=== PATIENT | male | born 1960 | race Caucasian/White ===

== ENCOUNTER 2016-06-02 13:48 | Observation (INO) | payer MEDICAID ==
--- NOTE | 2016-06-02 14:02 | CPEKG ---
Heart Rate: 68 RR Interval: 882 P-R Interval: 152 QRSD Interval: 96 QT Interval: 440 QTC Interval: 469 P Calhan: 33 QRS Calhan: 37 T Wave Calhan: 16 EKG Severity - NORMAL ECG - EKG Impression: SINUS RHYTHM Electronically Signed By: Nanda Quiñonez 02-Jun-2016 15:49:43
[2016-06-02] MEDS ORDERED: methylPREDNISolone SOD SUCC 125 MG/2 ML VIAL IVP ONE (14:13)
[2016-06-02] MEDS ORDERED: MAGNESIUM SULF 2 GM/WATER 50 ML IV ONE (14:13)
[2016-06-02] MEDS ORDERED: NS 500 ML IV ONE (14:13)
[2016-06-02] MEDS ORDERED: IPRATROPIUM/ALBUTEROL 3 ML DEYVIAL IH ONE (14:13)
[2016-06-02] MEDS ORDERED: ONDANSETRON 4 MG/2 ML VIAL IVP ONE ×2 (14:14→14:58)
[2016-06-02] MEDS ORDERED: FAMOTIDINE 20 MG/NACL 50 ML IV ONE (14:15)
[2016-06-02 14:20] LABS: % IMMATURE GRANULYOCYTES 0.9 % (0.0-1.1); ABSOLUTE IMMATURE GRANULOCYTES 0.11 10^3/uL (0.00-0.10); ADD DIFF? NO; ADD MORPH? NO; ADD SCAN? NO; ATYPICAL LYMPHOCYTE FLAG 0 (0-99); FRAGMENT RBC FLAG 0 (0-99); HEMATOCRIT 44.6 % (40.0-51.0); HEMOGLOBIN 15.7 g/dL (13.7-17.5); LEFT SHIFT FLG 0 (0-99); LIPEMIA HEMOLYSIS FLAG 90 (0-99); MEAN CELL HEMOGLOBIN 31.2 pg (27.9-34.1); MEAN CELL HEMOGLOBIN CONCENTR. 35.2 g/dL (32.4-36.7); MEAN CELL VOLUME 88.5 fL (81.5-99.8); MEAN PLATELET VOLUME 9.9 fL (8.7-11.7); PLATELET CLUMPS FLAG 0 (0-99); PLATELET COUNT 269 10^3/uL (150-400); RED BLOOD CELL COUNT 5.04 10^6/uL (4.40-6.38)
--- NOTE | 2016-06-02 14:22 | EDPHY ---
H & P Time Seen by Provider: 06/02/16 14:00 HPI/ROS: HPI Cough, congestion, body aches, vomiting, diarrhea. 56-year-old male by private vehicle with his friend. This patient complains of a productive cough, shortness of breath, intermittent fever, nasal congestion, body aches, nausea and vomiting, and watery diarrhea for the last 2 days. He reports that his cough is productive of a green sputum. He has a history of COPD. He is on oxygen at 2 L by nasal cannula 24-7. ROS: Constitutional: As above. Eyes: No discharge. No changes in vision. ENT: No sore throat. As above. Respiratory: As above. Cardiac: No chest pain, no palpitations. Gastrointestinal: No abdominal pain, no vomiting, no diarrhea. Genitourinary: No hematuria. No dysuria or increased frequency with urination. Musculoskeletal: No back pain. No neck pain. No myalgias or arthralgias. Skin: No rashes. Neurological: No headache. No focal weakness or altered sensation. Past medical history: Chronic pain, on large doses of OxyContin and oxycodone chronically, multiple musculoskeletal injuries, PE, asthma/COPD, type 2 diabetes , lung surgery. 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 Here with his friend. Physical Exam: General Appearance: Alert, he appears uncomfortable. This patient is responding to questions appropriately and in full sentences. This patient appears well-hydrated and well-nourished. Eyes: Pupils equal and round no pallor or injection. No lid edema, erythema or injection. ENT, Mouth: Mucous membranes are moist. The pharyngeal tissues are unremarkable. No edema or swelling. No asymmetry suggestive of abscess. No erythema or exudates. Respiratory: There are no retractions, shallow lung sounds bilaterally. No significant wheezing, no rhonchi. No tachypnea. Cardiovascular: Regular rate and rhythm. No murmur. Gastrointestinal: Abdomen is soft and nontender, no masses, bowel sounds normal. No focal tenderness at McBurney's point. No Sanchez sign. Neurological: Motor sensory function is grossly intact. Cranial nerves are normal. Gait is normal. Skin: Warm and dry, no rashes. Musculoskeletal: Neck is supple and nontender. Extremities are symmetrical. All joints range without pain or impingement. Psychiatric: No agitation. No depression. Database: EKG: EKG time is 2:00 p.m.; EKG shows a narrow complex normal sinus rhythm with a ventricular rate of 68. The MS, QRS, QT intervals are within normal limits. There are no ST-T wave changes indicative of ischemic or injury pattern. No evidence of right heart strain. Interpreted by me. Imaging: Chest x-ray PA and lateral; the cardiac mediastinal silhouette is unremarkable. No evidence of infiltrate or pneumothorax. Diffuse airway disease/ bronchitis. No other acute cardiopulmonary disease process noted. Interpreted by me. Procedures: Emergency department course: IV placed. He was placed on a monitoring coordinator. His vital signs have been reviewed. An EKG was performed. He was initially given 4 mg of IV Zofran, 20 mg of IV Pepcid. He will receive an albuterol/Atrovent nebulizer, 6 mL back-to- back, 2 g of IV magnesium and 125 mg of Solu-Medrol. Flu swab obtained. 2:50 p.m., patient re-evaluated. He is resting comfortably and taking his nebulizer at this time. Pulse oximetry is 96-97% on the nebulizer. No tachypnea. He is afebrile. He appears much more relaxed and comfortable. 3:30 p.m., patient re-evaluated. Vital signs have been reviewed. phototypesetting equipment monitor shows a narrow complex sinus rhythm ventricular rate of 75. Blood pressure 197/116 currently after duo nebs. Pulse oximetry on 2 L of nasal cannula oxygen 96%. He stated that he felt better but still overall did not feel well. He is requesting pain medication. As noted above he has a history of chronic narcotic pain medication dependence. He was given 0.5 mg of IV hydromorphone. He does not feel comfortable going home at this time. I will admit him to the hospitalist service on observation status. 3:35 p.m., spoke with hospitalist, Dr. Nina Bullock. This patient's case was discussed in detail with her. She has accepted the patient for admission. Patient admitted in stable condition. Differential Diagnosis: The differential diagnosis on this patient includes but is not limited to influenza, pneumonia, CHF, chronic pain exacerbation, COPD exacerbation. PE, CHF, DC unlikely. This represents a partial list of diagnoses considered. These considerations are based on history, physical exam, past history, reassessment and diagnostic testing. Smoking Status: Never smoked Constitutional: Initial Vital Signs Temperature (C) 36.3 C 06/02/16 13:52 Heart Rate 76 06/02/16 13:52 Respiratory Rate 22 H 06/02/16 13:52 Blood Pressure 152/102 H 06/02/16 13:52 O2 Sat (%) 98 06/02/16 13:52 O2 Delivery Mode Nasal Cannula O2 (L/minute) 2 Allergies/Adverse Reactions: ibuprofen Allergy (Verified 07/11/15 10:01) Home Medications: Medication Instructions Recorded Advair 250/50 (RX) 07/11/15 Albuterol Sulfate 07/11/15 Allopurinol 07/11/15 Aspirin 07/11/15 Losartan Potassium 07/11/15 Ondansetron Odt [Zofran Odt] 4 mg PO Q4PRN PRN #10 tab 07/11/15 Oxycodone HCl 07/11/15 Zofran 07/11/15 Medical Decision Making - Data Points Laboratory Results: Laboratory Results 06/02/16 14:06 06/02/16 14:06 06/02/16 06/02/16 14:20 14:06 WBC 12.74 H 10^3/uL (3.80-9.50) RBC 5.04 10^6/uL (4.40-6.38) Hgb 15.7 g/dL (13.7-17.5) Hct 44.6 % (40.0-51.0) MCV 88.5 fL (81.5-99.8) MCH 31.2 pg (27.9-34.1) MCHC 35.2 g/dL (32.4-36.7) RDW 15.0 % (11.5-15.2) Plt Count 269 10^3/uL (150-400) MPV 9.9 fL (8.7-11.7) Neut % (Auto) 74.2 % (39.3-74.2) Lymph % (Auto) 16.5 % (15.0-45.0) [place] % (Auto) 7.1 % (4.5-13.0) Eos % (Auto) 0.8 % (0.6-7.6) Baso % (Auto) 0.5 % (0.3-1.7) Nucleat RBC Rel Count 0.0 % (0.0-0.2) Absolute Neuts (auto) 9.46 H 10^3/uL (1.70-6.50) Absolute Lymphs (auto) 2.10 10^3/uL (1.00-3.00) Absolute Monos (auto) 0.90 H 10^3/uL (0.30-0.80) Absolute Eos (auto) 0.10 10^3/uL (0.03-0.40) Absolute Basos (auto) 0.07 10^3/uL (0.02-0.10) Absolute Nucleated RBC 0.00 10^3/uL (0-0.01) Immature Gran % 0.9 % (0.0-1.1) Immature Gran # 0.11 H 10^3/uL (0.00-0.10) Sodium 141 mEq/L (134-144) Potassium 4.2 mEq/L (3.5-5.2) Chloride 106 mEq/L (97-110) Carbon Dioxide 21 L mEq/l (22-31) Anion Gap 14 mEq/L (8-16) BUN 12 mg/dL (7-23) Creatinine 0.7 mg/dL (0.7-1.3) Estimated GFR > 60 Glucose 180 H mg/dL (70-100) Calcium 9.4 mg/dL (8.5-10.4) Influenza Typ A,B (DFA) NEGATIVE FOR FLU (NEGATIVE) Medications Given: Discontinued Medications Albuterol/Ipratropium (Duoneb) 6 ml IH EDNOW ONE Stop: 06/02/16 14:14 Last Admin: 06/02/16 14:32 Dose: 6 ml Sodium Chloride (Ns) 500 mls @ 0 mls/hr IV ONCE ONE PRN Reason: As Directed Stop: 06/02/16 14:14 Last Admin: 06/02/16 14:33 Dose: 500 mls Magnesium Sulfate (Magnesium Sulf 2 Gm (Premix)) 50 mls @ 50 mls/hr IV EDNOW ONE Stop: 06/02/16 15:12 Last Admin: 06/02/16 14:32 Dose: 50 mls Famotidine/Sodium Chloride (Pepcid 20 Mg (Premix)) 50 mls @ 200 mls/hr IV EDNOW ONE Stop: 06/02/16 14:29 Last Admin: 06/02/16 14:50 Dose: 50 mls Methylprednisolone Sodium Succinate (Solu-Medrol) 125 mg IVP EDNOW ONE Stop: 06/02/16 14:14 Last Admin: 06/02/16 14:33 Dose: 125 mg Ondansetron HCl (Zofran) 4 mg IVP EDNOW ONE Stop: 06/02/16 14:15 Last Admin: 06/02/16 14:33 Dose: 4 mg Ondansetron HCl (Zofran) 4 mg IVP EDNOW ONE Stop: 06/02/16 14:59 Last Admin: 06/02/16 15:04 Dose: 4 mg Departure - Departure Disposition: [facility] Inpatient Acute Clinical Impression: Vomiting, Diarrhea, Upper respiratory infection, Dyspnea, COPD exacerbation Referrals: Andrea Last MD [Primary Care Provider] - As per Instructions
[2016-06-02 14:49] LABS: ANION GAP 14 mEq/L (8-16); CALCIUM 9.4 mg/dL (8.5-10.4); CARBON DIOXIDE 21 mEq/l (22-31); CHLORIDE 106 mEq/L (97-110); CREATININE 0.7 mg/dL (0.7-1.3); GLOMERULAR FILTRATION RATE > 60; GLUCOSE 180 mg/dL (70-100); POTASSIUM 4.2 mEq/L (3.5-5.2); SODIUM 141 mEq/L (134-144)
[2016-06-02] MEDS ORDERED: HYDROmorphONE/DILAUDID 1 MG/ML SYR IVP ONE ×2 (15:33→17:35)
--- NOTE | 2016-06-02 16:07 | DX ---
Chest, AP Upright and Lateral Views, 3 Views Total - June 02, 2016, at 2:50 p.m. Clinical History: 56-year-old male with nausea, vomiting, and dyspnea. Comparison Studies: Chest, dated February 20, 2016 and September 30, 2011. Findings: Telemetry monitoring lead lines and oxygen tubing are in place. The cardiac and mediastina l silhouette are normal in size. There is no focal infiltrate, pleural effusion, peripheral interstit ial edema, or pneumothorax. There is some linear scarring at the right lung base and also in the late ral right upper chest, which are unchanged. The osseous structures are age-appropriate with some dege nerative features. The patient's arms obscure the anterior retrosternal space on the lateral view. Th ere is minimal left apical pleural thickening. There is an old healed left second anterior rib fractu re site. Impression: No acute abnormality, or substantial change from 2011.
[2016-06-02 16:18] VITALS: TEMP 97.5
[2016-06-02] MEDS ORDERED: ONDANSETRON DISINTEGRATING 4 MG TAB PO PRN (17:26)
[2016-06-02] MEDS ORDERED: ONDANSETRON 4 MG/2 ML VIAL IVP PRN (17:26)
[2016-06-02] MEDS ORDERED: PROMETHAZINE HCL 25 MG/ML VIAL IVP PRN (17:26)
[2016-06-02] MEDS ORDERED: ACETAMINOPHEN 325 MG TAB PO PRN (17:26)
[2016-06-02] MEDS ORDERED: IPRATROPIUM/ALBUTEROL 3 ML DEYVIAL IH PRN (17:35)
[2016-06-02] MEDS ORDERED: ALBUTEROL 60 PUFFS/8 GM MDI IH PRN (17:35)
--- NOTE | 2016-06-02 17:43 | PDEACUHP ---
History and Physical - Chief Complaint N/V/D, upper respiratory symptoms - History of Present Illness 56 yo male with h/o DM, COPD and chronic pain with chronic continuous opioid dependence presents to ED from his PCP office for 2-3 days of upper respiratory symptoms, in addition to N/V/D. He was to have his chronic pain medications refilled today and reports not being able to tolerate his meds over past 1-2 days due to N/V. He c/o abdominal cramping, chills and reports diarrhea 5-6 times per day. He denies recent travel. No camping. No atbx exposure. In the ED, there was concern for upper respiratory symptoms, and he does endorse some nasal congestion and recent productive cough. However, he has no respiratory distress and his symptoms seem to be focused on GI complaints. He was given 0.5 mg IV dilaudid, Zofran, Pepcid, IV magnesium, and IV solumedrol in the ED. He is admitted to the [facility] for further management. History Information - Allergies/Home Medication List Allergies/Adverse Reactions: ibuprofen Allergy (Verified 07/11/15 10:01) Home Medications: Albuterol [Proventil Inhaler HFA (*)] 1 - 2 puffs IH DAILY PRN 07/11/15 [Last Taken Unknown] Allopurinol [Allopurinol 300 MG (RX)] 300 mg PO BID 07/11/15 [Last Taken ] Atorvastatin Calcium [Lipitor 40 mg (*)] 40 mg PO DAILY 07/11/15 [Last Taken ] FLUTICASONE/SALMETEROL [ADVAIR HFA 230-21 MCG INHALER] 2 puffs IH BID 07/11/15 [ Last Taken Unknown] Losartan Potassium [Cozaar 50 mg (*)] 50 mg PO DAILY18 07/11/15 [Last Taken ] Tiotropium Inhaler [Spiriva Handihaler] 18 mcg IH DAILY18 07/11/15 [Last Taken 06/01/16] oxyCODONE IR [Oxycodone Ir (*)] 20 mg PO Q4-6PRN PRN 07/11/15 [Last Taken 2 Days Ago] Acetaminophen/ASA/Caffeine [Excedrin Tablet (*)] 1 each PO DAILY PRN 06/02/16 [ Last Taken Unknown] Ipratropium/Albuterol [Duoneb (*)] 3 ml IH Q6 PRN 06/02/16 [Last Taken 06/02/16] Oxycodone HCl [Oxycontin] 40 mg PO BID 06/02/16 [Last Taken 06/02/16] Psyllium Husk (with Sugar) [Metamucil Packet] 1 each PO DAILY 06/02/16 [Last Taken Unknown] metFORMIN HCL [Glucophage 500 mg (*)] 500 mg PO BIDMEAL 06/02/16 [Last Taken ] I have personally reviewed and updated: family history, medical history, social history, surgical history - Past Medical History asthma, COPD, diabetes type 2, pulmonary embolism - Surgical History Reports: no pertinent surgical hx - Family History Positive for: non-pertinent - Social History Smoking Status: Never smoked Alcohol Use: None Drug Use: None (Lives with his in [place]. 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.) Review of Systems ROS: 10pt was reviewed & negative except for what was stated in HPI & below Physical Exam Temp Pulse Resp BP Pulse Ox 36.4 C 80 16 150/83 H 97 06/02/16 16:16 06/02/16 16:16 06/02/16 16:16 06/02/16 16:16 06/02/16 16:16 O2 (L/minute) 2 Constitutional: no apparent distress Eyes: PERRL Ears, Nose, Mouth, Throat: moist mucous membranes Cardiovascular: regular rate and rhythym, no murmur, rub, or gallop Respiratory: no respiratory distress, clear to auscultation Gastrointestinal: normoactive bowel sounds, soft, non-tender abdomen Skin: warm Neurologic: AAOx3 Psychiatric: interacting appropriately Lab Data & Imaging Review 06/02/16 14:06 06/02/16 14:06 WBC 12.74 10^3/uL (3.80-9.50) H 06/02/16 14:06 RBC 5.04 10^6/uL (4.40-6.38) 06/02/16 14:06 Hgb 15.7 g/dL (13.7-17.5) 06/02/16 14:06 Hct 44.6 % (40.0-51.0) 06/02/16 14:06 MCV 88.5 fL (81.5-99.8) 06/02/16 14:06 MCH 31.2 pg (27.9-34.1) 06/02/16 14:06 MCHC 35.2 g/dL (32.4-36.7) 06/02/16 14:06 RDW 15.0 % (11.5-15.2) 06/02/16 14:06 Plt Count 269 10^3/uL (150-400) 06/02/16 14:06 MPV 9.9 fL (8.7-11.7) 06/02/16 14:06 Neut % (Auto) 74.2 % (39.3-74.2) 06/02/16 14:06 Lymph % (Auto) 16.5 % (15.0-45.0) 06/02/16 14:06 [place] % (Auto) 7.1 % (4.5-13.0) 06/02/16 14:06 Eos % (Auto) 0.8 % (0.6-7.6) 06/02/16 14:06 Baso % (Auto) 0.5 % (0.3-1.7) 06/02/16 14:06 Nucleat RBC Rel Count 0.0 % (0.0-0.2) 06/02/16 14:06 Absolute Neuts (auto) 9.46 10^3/uL (1.70-6.50) H 06/02/16 14:06 Absolute Lymphs (auto) 2.10 10^3/uL (1.00-3.00) 06/02/16 14:06 Absolute Monos (auto) 0.90 10^3/uL (0.30-0.80) H 06/02/16 14:06 Absolute Eos (auto) 0.10 10^3/uL (0.03-0.40) 06/02/16 14:06 Absolute Basos (auto) 0.07 10^3/uL (0.02-0.10) 06/02/16 14:06 Absolute Nucleated RBC 0.00 10^3/uL (0-0.01) 06/02/16 14:06 Immature Gran % 0.9 % (0.0-1.1) 06/02/16 14:06 Immature Gran # 0.11 10^3/uL (0.00-0.10) H 06/02/16 14:06 Sodium 141 mEq/L (134-144) 06/02/16 14:06 Potassium 4.2 mEq/L (3.5-5.2) 06/02/16 14:06 Chloride 106 mEq/L (97-110) 06/02/16 14:06 Carbon Dioxide 21 mEq/l (22-31) L 06/02/16 14:06 Anion Gap 14 mEq/L (8-16) 06/02/16 14:06 BUN 12 mg/dL (7-23) 06/02/16 14:06 Creatinine 0.7 mg/dL (0.7-1.3) 06/02/16 14:06 Estimated GFR > 60 06/02/16 14:06 Glucose 180 mg/dL (70-100) H 06/02/16 14:06 Calcium 9.4 mg/dL (8.5-10.4) 06/02/16 14:06 Influenza Typ A,B (DFA) NEGATIVE FOR FLU (NEGATIVE) 06/02/16 14:20 Assessment & Plan Assessment: N/V/D - Query viral gastroenteritis vs opioid withdrawal. He was due to Rx refill today, but was so ill at his PCP office, was sent to ED. Though I'm suspicious for opioid withdrawal, will check stool culture, giardia and cryptosporidium since he uses well water and he reports concern about contamination. Supportive care with anti-emetics, IVF's. Will give IV dilaudid now, followed by his outpatient doses of Oxycontin and Oxycodone. Chronic pain with continuous opioid dependence - Resume outpt meds as above. COPD without acute exacerbation - CXR shows chronic airway disease. His symptoms may have cleared after IV solumedrol given in the ED, but I appreciate no wheezing or significant respiratory symptoms on my exam. Thus, I'll defer further steroids at this time. Continue home nebs and inhalers. DM type 2 - hold metformin for now, dose adjusted insulin as needed. Full code Dispo - obs
[2016-06-02] MEDS ORDERED: D50W 25 GM/50 ML SYR IVP PRN (17:50)
[2016-06-02 17:53] LABS: ALBUMIN 3.9 g/dL (3.5-5.0); BILIRUBIN,TOTAL 1.1 mg/dL (0.1-1.4); BILIRUBIN-CONJUGATED 0.2 mg/dL (0.0-0.5); BILIRUBIN-UNCONJUGATED 0.9 mg/dL (0.0-1.1)
[2016-06-02] MEDS ORDERED: LOSARTAN POTASSIUM 50 MG TAB PO SCH (18:00)
[2016-06-02] MEDS ORDERED: TIOTROPIUM INHALER 18 MCG/DOSE 5 DOSE/MDI IH SCH (18:00)
[2016-06-02] MEDS ORDERED: NS 1,000 ML IV SCH (18:00)
[2016-06-02] MEDS: INSULIN LISPRO 100 UNIT/ML SC SCH (18:31)
[2016-06-02] MEDS: oxyCODONE IR 5 MG TAB PO PRN (20:32)
[2016-06-02] MEDS: Fluticasone/Salmeterol [Advair Hfa 230-21 Mcg Inhaler] 2 PUFFS IH SCH (21:05)
[2016-06-03 05:53] LABS: % IMMATURE GRANULYOCYTES 0.5 % (0.0-1.1); ABSOLUTE IMMATURE GRANULOCYTES 0.08 10^3/uL (0.00-0.10); ADD DIFF? NO; ADD MORPH? NO; ADD SCAN? NO; ATYPICAL LYMPHOCYTE FLAG 0 (0-99); FRAGMENT RBC FLAG 0 (0-99); HEMATOCRIT 44.2 % (40.0-51.0); HEMOGLOBIN 14.7 g/dL (13.7-17.5); LEFT SHIFT FLG 0 (0-99); LIPEMIA HEMOLYSIS FLAG 80 (0-99); MEAN CELL HEMOGLOBIN 29.9 pg (27.9-34.1); MEAN CELL HEMOGLOBIN CONCENTR. 33.3 g/dL (32.4-36.7); MEAN PLATELET VOLUME 10.1 fL (8.7-11.7); PLATELET CLUMPS FLAG 10 (0-99); PLATELET COUNT 275 10^3/uL (150-400); RED BLOOD CELL COUNT 4.91 10^6/uL (4.40-6.38); RED CELL DISTRIBUTION WIDTH 15.4 % (11.5-15.2)
[2016-06-03 05:56] LABS: COLOR YELLOW; LEUKOCYTE ESTERASE,URINE NEGATIVE (NEGATIVE); NITRITE,URINE NEGATIVE (NEGATIVE)
[2016-06-03 06:05] LABS: ANION GAP 12 mEq/L (8-16); CALCIUM 8.4 mg/dL (8.5-10.4); CARBON DIOXIDE 20 mEq/l (22-31); CHLORIDE 106 mEq/L (97-110); CREATININE 0.7 mg/dL (0.7-1.3); GLOMERULAR FILTRATION RATE > 60; GLUCOSE 265 mg/dL (70-100); POTASSIUM 4.3 mEq/L (3.5-5.2); SODIUM 138 mEq/L (134-144)
[2016-06-03 06:12] LABS: MUCUS 1+ /lpf (NONE-1+)
[2016-06-03 07:51] VITALS: BP 104/65
[2016-06-03] MEDS: oxyCODONE IR 5 MG TAB PO PRN ×2 (08:08→11:38)
[2016-06-03] MEDS ORDERED: MAGNESIUM HYDROXIDE 30 ML UDCUP PO PRN (08:24)
[2016-06-03] MEDS ORDERED: ALLOPURINOL 300 MG TAB PO SCH (09:00)
[2016-06-03] MEDS ORDERED: ATORVASTATIN CALCIUM 40 MG TAB PO SCH (09:00)
[2016-06-03] MEDS: INSULIN LISPRO 100 UNIT/ML SC SCH (09:53)
[2016-06-03] MEDS: Fluticasone/Salmeterol [Advair Hfa 230-21 Mcg Inhaler] 2 PUFFS IH SCH (09:53)
[2016-06-03] MEDS ORDERED: metFORMIN HCL 500 MG TAB PO SCH (10:00)
[2016-06-03 10:27] VITALS: PULSE 88; RESP 18; O2SAT 96
--- NOTE | 2016-06-03 11:16 | GDS ---
[f rep st] DISCHARGE SUMMARY DIAGNOSES: 1. Chronic obstructive pulmonary disease exacerbation. 2. Suspected viral gastroenteritis versus narcotic withdrawal with nausea, vomiting, diarrhea. 3. Leukocytosis. 4. Acute on chronic respiratory failure on supplemental oxygen. 5. Chronic pain on continuous narcotics. HOSPITAL COURSE: A 56-year-old man admitted with viral gastroenteritis symptoms. He had been unable to tolerate his narcotics and there may have been a component of narcotic withdrawal as well. Sympt oms have markedly improved overnight. He is eating a full meal and feels much better. He also had worsening of his chronic reactive airways disease, which is likely COPD. He received Nicole u-Medrol in the emergency department. He is on chronic oxygen. He has sufficient inhalers and nebul izers at home which he uses. I will give him a short burst of prednisone given his significant impro vement with the dose of Solu-Medrol. I will give him low-dose prednisone as he has diabetes and he h as been hyperglycemic. I have given him 4 days of prednisone 20 mg. In terms of his chronic narcotic dependence, he will fill his prescriptions with Dr. Mendez. She has l eft scripts for him at her office. He has a slightly worsening leukocytosis which I suspect is due to the steroids received in the ED as he feels symptomatically significantly improved. /[id number]/MODL
== END 2016-06-03 12:10 | disposition home or self-care (01) ==
LOC: F1N 16:10
PROVIDERS: ADMIT Hospitalist; ATTEND Hospitalist
DX: J44.1 Chronic obstructive pulmonary disease with (acute) exacerbation (principal); A08.4 Viral intestinal infection, unspecified; E11.9 Type 2 diabetes mellitus without complications; Z99.81 Dependence on supplemental oxygen; Z87.891 Personal history of nicotine dependence; G89.29 Other chronic pain; F11.20 Opioid dependence, uncomplicated; Z86.711 Personal history of pulmonary embolism
CPT/HCPCS: 71020; 93005; 96365; 96375; 96376; 99285; G0378; J1170; J2405; J2550

== ENCOUNTER 2016-06-23 00:46 | Observation (INO) | payer MEDICAID ==
[2016-06-23] MEDS ORDERED: NS 1,000 ML IV ONE ×2 (00:53→01:32)
[2016-06-23] MEDS ORDERED: PANTOPRAZOLE SODIUM 40 MG in NS 100 ML IV ONE (00:54)
--- NOTE | 2016-06-23 00:59 | EDPHY ---
H & P HPI/ROS: HPI CHIEF COMPLAINT: Hematemesis HISTORY OF PRESENT ILLNESS: This patient very pleasant 56-year-old male, who presents emergency room by EMS for hematemesis. Patient tells me he ate barbecue and pizza around 730 tonight, around 930 tonight he started having sudden onset nausea and vomiting. He had multiple episodes of vomiting. He tells me that he filled up at least 2 cups of bright red blood. He tells me It was not dark blood, there were no blood clots. He states that is bright red blood. He denies having any black tarry stools he does tell me he has some lower abdominal cramping. Denies chest pain or shortness of breath. He has no history of ulcers or esophageal varices or liver disease. He is not on any anticoagulation. Past Medical History: Diabetes, COPD on 2 L nasal cannula around the clock, hypertension, chronic musculoskeletal pain, pulmonary embolisms Past Surgical History: Denies recent significant surgical history Social History: Denies use of drugs alcohol tobacco products, lives in [facility] at home, Family History:Noncontributory ROS REVIEW OF SYSTEMS: A comprehensive 10 point review of systems is otherwise negative aside from elements mentioned in the history of present illness. Exam Constitutional triage nursing summary reviewed, vital signs reviewed, awake/ alert. Eyes normal conjunctivae and sclera, EOMI, PERRLA. HENT normal inspection, atraumatic, moist mucus membranes, no epistaxis, neck supple/ no meningismus, no raccoon eyes. Respiratory clear to auscultation bilaterally, normal breath sounds, no respiratory distress, no wheezing. Cardiovascular rate normal, regular rhythm, no murmur, no edema, distal pulses normal. Gastrointestinal mild tender palpation lower abdomen, no rebound, no guarding , normal bowel sounds, no distension, no pulsatile mass. Genitourinary no CVA tenderness. Musculoskeletal no midline vertebral tenderness, full range of motion, no calf swelling, no tenderness of extremities, no meningismus, good pulses, neurovascularly intact. Skin pink, warm, & dry, no rash, skin atraumatic. Neurologic awake, alert and oriented x 3, AAOx3, moves all 4 extremities equally, motor intact, sensory intact, CN II-XII intact, normal cerebellar, normal vision, normal speech. Psychiatric normal mood/affect. Heme/Lymph/Immune no lymphadenopathy. Differential diagnosis includes but is not limited to and in no particular order : Peptic ulcer disease, Tawnya-Jacobson tear, esophageal varices, gastritis, bowel obstruction, appendicitis, gallbladder disease, diverticulitis, colitis, enteritis, perforated viscus, gastritis, GERD, esophagitis, urinary tract infection, pyelonephritis, kidney stones Medical Decision Making: This patient had an IV established patient be placed on full monitor, obtain blood work patient be typed and screen. Patient be given Protonix Protonix drip. Patient had a CT scan of his abdomen pelvis with IV contrast rule out significant intra-abdominal inflammation pathology including perforated ulcer, duodenitis, colitis, diverticulitis. Re-evaluation: CT scan of the abdominal pain with IV contrast The results of the study are shows nothing acute specifically no ulcer or perforated ulcer, no evidence of duodenitis nothing spleen hematemesis The study was read by Dr. Gross I viewed the images myself on the PACS system. 0246: Re-evaluation at this time is resting comfortably no acute distress. He has not had any vomiting here specifically no hematemesis. His CT scan has been reviewed shows no acute inflammatory process. Blood work is stable as H&H stable. Due to the complaint of 2 large cups of bright red blood I feel it is reasonable to admit this patient observe him overnight and possibly scope him. He is not on any anticoagulation is INR normal. He is hemodynamically stable as H&H were stable. No evidence of active bleeding at this time. Spoke with the hospitalist service Dr. Marshall who agrees to admit this patient. At this time the patient's abdomen is soft nontender no guarding or peritoneal signs. Source: Patient, EMS - Medical/Surgical History Hx Asthma: Yes Hx Chronic Respiratory Disease: Yes Hx Diabetes: Yes Hx Cardiac Disease: No Hx Renal Disease: No Hx Cirrhosis: No Hx Alcoholism: No Hx HIV/AIDS: No Hx Splenectomy or Spleen Trauma: No Other PMH: Chronic pain, PE x5, asthma/COPD, DM II, LUNG SURGERY, kidneystones, hossein shoulder tears, r knee injuries, lower back pain, backfractures - Social History Smoking Status: Never smoked Constitutional: Initial Vital Signs O2 Sat (%) 93 06/23/16 00:53 O2 Delivery Mode Room Air O2 (L/minute) 2 Allergies/Adverse Reactions: ibuprofen Allergy (Verified 06/23/16 01:00) Home Medications: Medication Instructions Recorded Albuterol [Proventil Inhaler HFA 1 - 2 puffs IH DAILY PRN 07/11/15 (*)] Allopurinol [Allopurinol 300 MG 300 mg PO BID 07/11/15 (RX)] Atorvastatin Calcium [Lipitor 40 40 mg PO DAILY 07/11/15 mg (*)] Losartan Potassium [Cozaar 50 mg 50 mg PO DAILY18 07/11/15 (*)] oxyCODONE IR [Oxycodone Ir (*)] 20 mg PO Q4-6PRN PRN 07/11/15 Ipratropium/Albuterol [Duoneb (*)] 3 ml IH Q6 PRN 06/02/16 Oxycodone HCl [Oxycontin] 40 mg PO BID 06/02/16 Psyllium Husk (with Sugar) 1 each PO DAILY 06/02/16 [Metamucil Packet] metFORMIN HCL [Glucophage 500 mg 500 mg PO BIDMEAL 06/02/16 (*)] Medical Decision Making - Data Points Laboratory Results: Laboratory Results 06/23/16 00:54 06/23/16 00:54 06/23/16 06/23/16 06/23/16 01:40 01:15 00:54 WBC 9.01 10^3/uL (3.80-9.50) RBC 4.58 10^6/uL (4.40-6.38) Hgb 14.3 g/dL (13.7-17.5) Hct 41.3 % (40.0-51.0) MCV 90.2 fL (81.5-99.8) MCH 31.2 pg (27.9-34.1) MCHC 34.6 g/dL (32.4-36.7) RDW 13.6 % (11.5-15.2) Plt Count 270 10^3/uL (150-400) MPV 10.0 fL (8.7-11.7) Neut % (Auto) 57.5 % (39.3-74.2) Lymph % (Auto) 31.0 % (15.0-45.0) [place] % (Auto) 8.0 % (4.5-13.0) Eos % (Auto) 2.3 % (0.6-7.6) Baso % (Auto) 0.4 % (0.3-1.7) Nucleat RBC Rel Count 0.0 % (0.0-0.2) Absolute Neuts (auto) 5.18 10^3/uL (1.70-6.50) Absolute Lymphs (auto) 2.79 10^3/uL (1.00-3.00) Absolute Monos (auto) 0.72 10^3/uL (0.30-0.80) Absolute Eos (auto) 0.21 10^3/uL (0.03-0.40) Absolute Basos (auto) 0.04 10^3/uL (0.02-0.10) Absolute Nucleated RBC 0.00 10^3/uL (0-0.01) Immature Gran % 0.8 % (0.0-1.1) Immature Gran # 0.07 10^3/uL (0.00-0.10) PT 12.2 SEC (12.0-15.0) INR 0.91 (0.83-1.16) APTT 24.1 SEC (23.0-38.0) VBG Lactic Acid Sodium 142 mEq/L (134-144) Potassium 4.0 mEq/L (3.5-5.2) Chloride 104 mEq/L (97-110) Carbon Dioxide 22 mEq/l (22-31) Anion Gap 16 mEq/L (8-16) BUN 17 mg/dL (7-23) Creatinine 1.0 mg/dL (0.7-1.3) Estimated GFR > 60 Glucose 220 H mg/dL (70-100) Calcium 9.4 mg/dL (8.5-10.4) Total Bilirubin 0.6 mg/dL (0.1-1.4) Conjugated Bilirubin 0.5 mg/dL (0.0-0.5) Unconjugated Bilirubin 0.1 mg/dL (0.0-1.1) AST 23 IU/L (17-59) ALT 37 IU/L (21-72) Alkaline Phosphatase 90 IU/L (38-126) Total Protein 6.5 g/dL (6.3-8.2) Albumin 3.9 g/dL (3.5-5.0) Lipase 91.0 IU/L (23-300) Urine Color YELLOW Urine Appearance CLEAR Urine pH 6.0 (5.0-7.5) Ur Specific [place] 1.018 (1.002-1.030) Urine Protein NEGATIVE (NEGATIVE) Urine Ketones TRACE H (NEGATIVE) Urine Blood NEGATIVE (NEGATIVE) Urine Nitrate NEGATIVE (NEGATIVE) Urine Bilirubin NEGATIVE (NEGATIVE) Urine Urobilinogen NEGATIVE EU (0.2-1.0) Ur Leukocyte Esterase NEGATIVE (NEGATIVE) Ur Culture Indicated? NOT INDICATED (NI) Urine Glucose NEGATIVE (NEGATIVE) Patient ABO/Rh O POSITIVE Antibody Screen NEGATIVE 06/23/16 00:53 WBC RBC Hgb Hct MCV MCH MCHC RDW Plt Count MPV Neut % (Auto) Lymph % (Auto) [place] % (Auto) Eos % (Auto) Baso % (Auto) Nucleat RBC Rel Count Absolute Neuts (auto) Absolute Lymphs (auto) Absolute Monos (auto) Absolute Eos (auto) Absolute Basos (auto) Absolute Nucleated RBC Immature Gran % Immature Gran # PT INR APTT VBG Lactic Acid 3.5 H mmol/L (0.7-2.1) Sodium Potassium Chloride Carbon Dioxide Anion Gap BUN Creatinine Estimated GFR Glucose Calcium Total Bilirubin Conjugated Bilirubin Unconjugated Bilirubin AST ALT Alkaline Phosphatase Total Protein Albumin Lipase Urine Color Urine Appearance Urine pH Ur Specific [place] Urine Protein Urine Ketones Urine Blood Urine Nitrate Urine Bilirubin Urine Urobilinogen Ur Leukocyte Esterase Ur Culture Indicated? Urine Glucose Patient ABO/Rh Antibody Screen Medications Given: Discontinued Medications Hydromorphone HCl (Dilaudid) 0.5 mg IVP EDNOW ONE Stop: 06/23/16 02:40 Last Admin: 06/23/16 02:40 Dose: 0.5 mg Sodium Chloride (Ns) 1,000 mls @ 0 mls/hr IV ONCE ONE PRN Reason: Wide Open Stop: 06/23/16 00:54 Last Admin: 06/23/16 01:10 Dose: 1,000 mls Pantoprazole Sodium 40 mg/ (Sodium Chloride) 100 mls @ 200 mls/hr IV EDNOW ONE Stop: 06/23/16 01:23 Last Admin: 06/23/16 01:25 Dose: 100 mls Sodium Chloride (Ns) 1,000 mls @ 0 mls/hr IV ONCE ONE PRN Reason: Wide Open Stop: 06/23/16 01:33 Last Admin: 02/06/17 02:15 Dose: 1,000 mls Departure - Departure Disposition: [facility] Inpatient Acute Clinical Impression: Hematemesis Qualifiers: Nausea presence: with nausea Qualifier Code: (K92.0) Hematemesis Condition: Good
[2016-06-23 01:06] LABS: % IMMATURE GRANULYOCYTES 0.8 % (0.0-1.1); ABSOLUTE IMMATURE GRANULOCYTES 0.07 10^3/uL (0.00-0.10); ADD DIFF? NO; ADD MORPH? NO; ADD SCAN? NO; ATYPICAL LYMPHOCYTE FLAG 0 (0-99); FRAGMENT RBC FLAG 0 (0-99); HEMATOCRIT 41.3 % (40.0-51.0); HEMOGLOBIN 14.3 g/dL (13.7-17.5); LEFT SHIFT FLG 0 (0-99); LIPEMIA HEMOLYSIS FLAG 90 (0-99); MEAN CELL HEMOGLOBIN 31.2 pg (27.9-34.1); MEAN CELL HEMOGLOBIN CONCENTR. 34.6 g/dL (32.4-36.7); MEAN CELL VOLUME 90.2 fL (81.5-99.8); PLATELET CLUMPS FLAG 10 (0-99); PLATELET COUNT 270 10^3/uL (150-400); RED BLOOD CELL COUNT 4.58 10^6/uL (4.40-6.38); RED CELL DISTRIBUTION WIDTH 13.6 % (11.5-15.2)
[2016-06-23 01:18] LABS: INR 0.91 (0.83-1.16); PROTIME(PATIENT) 12.2 SEC (12.0-15.0)
[2016-06-23 01:19] LABS: APTT 24.1 SEC (23.0-38.0)
[2016-06-23] MEDS ORDERED: IOPAMIDOL (ISOVUE-300) 100 ML BTL IV ONE (01:40)
[2016-06-23 01:53] LABS: ALANINE AMINOTRANSFERASE 37 IU/L (21-72); ALBUMIN 3.9 g/dL (3.5-5.0); ALKALINE PHOSPHATASE 90 IU/L (38-126); ANION GAP 16 mEq/L (8-16); ASPARTATE AMINOTRANSFERASE 23 IU/L (17-59); BILIRUBIN,TOTAL 0.6 mg/dL (0.1-1.4); BILIRUBIN-CONJUGATED 0.5 mg/dL (0.0-0.5); BILIRUBIN-UNCONJUGATED 0.1 mg/dL (0.0-1.1); CALCIUM 9.4 mg/dL (8.5-10.4); CARBON DIOXIDE 22 mEq/l (22-31); CHLORIDE 104 mEq/L (97-110); GLOMERULAR FILTRATION RATE > 60; GLUCOSE 220 mg/dL (70-100); SODIUM 142 mEq/L (134-144); TOTAL PROTEIN 6.5 g/dL (6.3-8.2)
[2016-06-23 02:04] LABS: COLOR YELLOW; LEUKOCYTE ESTERASE,URINE NEGATIVE (NEGATIVE); NITRITE,URINE NEGATIVE (NEGATIVE)
[2016-06-23] MEDS: PANTOPRAZOLE SODIUM 80 MG in NS 100 ML IV SCH ×3 (02:34→23:09)
[2016-06-23] MEDS ORDERED: HYDROmorphONE/DILAUDID 1 MG/ML SYR IVP ONE (02:39)
[2016-06-23] MEDS ORDERED: ONDANSETRON 4 MG/2 ML VIAL IVP PRN (03:53)
[2016-06-23] MEDS ORDERED: ONDANSETRON DISINTEGRATING 4 MG TAB PO PRN (03:53)
[2016-06-23] MEDS ORDERED: oxyCODONE IR 5 MG TAB PO PRN (03:53)
[2016-06-23] MEDS ORDERED: ALBUTEROL 3 ML DEYVIAL IH PRN (03:53)
[2016-06-23] MEDS ORDERED: ACETAMINOPHEN 325 MG TAB PO PRN (03:53)
--- NOTE | 2016-06-23 04:36 | PDGENHP ---
History and Physical - Chief Complaint vomiting bright red blood - History of Present Illness Patient is a 56/M with COPD, chronic respiratory failure, chronic pain syndrome who presents to the ED complaining of nausea, vomiting and vomiting bright red blood. Patient states he ate dinner this evening without event, then at around 9pm suddenly felt nauseous, started vomiting initially stomach contents, but after a few minutes of vomiting, he reports about 2 cups of bright red blood with clots came out. He also reports feeling generalized crampy abdominal discomfort, but denies any associated dizziness/lightheadedness, chest pain, palpitations, shortness of breath or diarrhea. He has never had a colonoscopy or EGD before. He denies daily alcohol use, but does take Aspirin 325 mg daily. Denies any prior history of bleeding, last BM was on 06/22 and normal in color and consistency. On arrival to the ED, patient was afebrile and hemodynamically stable. Labs, including cbc and BMP were unremarkable. He was started on a PPI and CT abd/ pelvis was obtained, which did not reveal any acute pathology. He was then admitted to the hospitalist service for further management. History Information - Allergies/Home Medication List Allergies/Adverse Reactions: ibuprofen Allergy (Verified 06/23/16 01:00) Home Medications: Albuterol [Proventil Inhaler HFA (*)] 1 - 2 puffs IH DAILY PRN 07/11/15 [Last Taken Unknown] Allopurinol [Allopurinol 300 MG (RX)] 300 mg PO BID 07/11/15 [Last Taken ] Atorvastatin Calcium [Lipitor 40 mg (*)] 40 mg PO DAILY 07/11/15 [Last Taken ] Losartan Potassium [Cozaar 50 mg (*)] 50 mg PO DAILY18 07/11/15 [Last Taken ] oxyCODONE IR [Oxycodone Ir (*)] 20 mg PO Q4-6PRN PRN 07/11/15 [Last Taken 2 Days Ago] Ipratropium/Albuterol [Duoneb (*)] 3 ml IH Q6 PRN 06/02/16 [Last Taken 06/02/16] Oxycodone HCl [Oxycontin] 40 mg PO BID 06/02/16 [Last Taken 06/02/16] Psyllium Husk (with Sugar) [Metamucil Packet] 1 each PO DAILY 06/02/16 [Last Taken Unknown] metFORMIN HCL [Glucophage 500 mg (*)] 500 mg PO BIDMEAL 06/02/16 [Last Taken ] I have personally reviewed and updated: family history, medical history, social history, surgical history - Past Medical History asthma, 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), diabetes type 2, pulmonary embolism (2012, provoked, s/p 6 months of systemic anticoagulation) Additional medical history: multiple skeletal trauma, chronic pain syndrome - Surgical History Reports: no pertinent surgical hx - Family History Positive for: non-pertinent - Social History Smoking Status: Never smoked Alcohol Use: None Drug Use: None Additional social history: Patient is retired, lives his , 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 Review of Systems ROS: 10pt was reviewed & negative except for what was stated in HPI & below Physical Exam Temp Pulse Resp BP Pulse Ox 36.7 C 87 16 130/77 H 94 06/23/16 01:21 06/23/16 02:00 06/23/16 02:00 06/23/16 02:00 06/23/16 02:00 Constitutional: no apparent distress, appears nourished, not in pain Eyes: PERRL, anicteric sclera, EOMI Ears, Nose, Mouth, Throat: moist mucous membranes, hearing normal, ears appear normal, no oral mucosal ulcers Cardiovascular: regular rate and rhythym, no murmur, rub, or gallop, pulses symmetric bilaterally, No JVD, No edema Peripheral Pulses: 2+: dorsalis-pedis (R), dorsalis-pedis (L) Respiratory: no respiratory distress, no rales or rhonchi, clear to auscultation Gastrointestinal: normoactive bowel sounds, no palpable masses, other (soft, mild tenderness in the epigastrum/LUQ), No guarding, No rebound Genitourinary: no bladder fullness, no bladder tenderness Skin: warm, normal color, no rashes or abrasions, no fluctuance, no induration, No mottled Musculoskeletal: full muscle strength, no muscle tenderness, normal joint ROM, no joint effusions Neurologic: AAOx3, sensation intact bilaterally, CN II-XII Intact, No weakness, No numbness Psychiatric: interacting appropriately, not anxious, not encephalopathic, thought process linear Lab Data & Imaging Review 06/23/16 00:54 06/23/16 00:54 WBC 9.01 10^3/uL (3.80-9.50) 06/23/16 00:54 RBC 4.58 10^6/uL (4.40-6.38) 06/23/16 00:54 Hgb 14.3 g/dL (13.7-17.5) 06/23/16 00:54 Hct 41.3 % (40.0-51.0) 06/23/16 00:54 MCV 90.2 fL (81.5-99.8) 06/23/16 00:54 MCH 31.2 pg (27.9-34.1) 06/23/16 00:54 MCHC 34.6 g/dL (32.4-36.7) 06/23/16 00:54 RDW 13.6 % (11.5-15.2) 06/23/16 00:54 Plt Count 270 10^3/uL (150-400) 06/23/16 00:54 MPV 10.0 fL (8.7-11.7) 06/23/16 00:54 Neut % (Auto) 57.5 % (39.3-74.2) 06/23/16 00:54 Lymph % (Auto) 31.0 % (15.0-45.0) 06/23/16 00:54 [place] % (Auto) 8.0 % (4.5-13.0) 06/23/16 00:54 Eos % (Auto) 2.3 % (0.6-7.6) 06/23/16 00:54 Baso % (Auto) 0.4 % (0.3-1.7) 06/23/16 00:54 Nucleat RBC Rel Count 0.0 % (0.0-0.2) 06/23/16 00:54 Absolute Neuts (auto) 5.18 10^3/uL (1.70-6.50) 06/23/16 00:54 Absolute Lymphs (auto) 2.79 10^3/uL (1.00-3.00) 06/23/16 00:54 Absolute Monos (auto) 0.72 10^3/uL (0.30-0.80) 06/23/16 00:54 Absolute Eos (auto) 0.21 10^3/uL (0.03-0.40) 06/23/16 00:54 Absolute Basos (auto) 0.04 10^3/uL (0.02-0.10) 06/23/16 00:54 Absolute Nucleated RBC 0.00 10^3/uL (0-0.01) 06/23/16 00:54 Immature Gran % 0.8 % (0.0-1.1) 06/23/16 00:54 Immature Gran # 0.07 10^3/uL (0.00-0.10) 06/23/16 00:54 PT 12.2 SEC (12.0-15.0) 06/23/16 00:54 INR 0.91 (0.83-1.16) 06/23/16 00:54 APTT 24.1 SEC (23.0-38.0) 06/23/16 00:54 VBG Lactic Acid 1.6 mmol/L (0.7-2.1) D 06/23/16 04:12 Sodium 142 mEq/L (134-144) 06/23/16 00:54 Potassium 4.0 mEq/L (3.5-5.2) 06/23/16 00:54 Chloride 104 mEq/L (97-110) 06/23/16 00:54 Carbon Dioxide 22 mEq/l (22-31) 06/23/16 00:54 Anion Gap 16 mEq/L (8-16) 06/23/16 00:54 BUN 17 mg/dL (7-23) 06/23/16 00:54 Creatinine 1.0 mg/dL (0.7-1.3) 06/23/16 00:54 Estimated GFR > 60 06/23/16 00:54 Glucose 220 mg/dL (70-100) H 06/23/16 00:54 Calcium 9.4 mg/dL (8.5-10.4) 06/23/16 00:54 Total Bilirubin 0.6 mg/dL (0.1-1.4) 06/23/16 00:54 Conjugated Bilirubin 0.5 mg/dL (0.0-0.5) 06/23/16 00:54 Unconjugated Bilirubin 0.1 mg/dL (0.0-1.1) 06/23/16 00:54 AST 23 IU/L (17-59) 06/23/16 00:54 ALT 37 IU/L (21-72) 06/23/16 00:54 Alkaline Phosphatase 90 IU/L (38-126) 06/23/16 00:54 Total Protein 6.5 g/dL (6.3-8.2) 06/23/16 00:54 Albumin 3.9 g/dL (3.5-5.0) 06/23/16 00:54 Lipase 91.0 IU/L (23-300) 06/23/16 00:54 Urine Color YELLOW 06/23/16 01:40 Urine Appearance CLEAR 06/23/16 01:40 Urine pH 6.0 (5.0-7.5) 06/23/16 01:40 Ur Specific [place] 1.018 (1.002-1.030) 06/23/16 01:40 Urine Protein NEGATIVE (NEGATIVE) 06/23/16 01:40 Urine Ketones TRACE (NEGATIVE) H 06/23/16 01:40 Urine Blood NEGATIVE (NEGATIVE) 06/23/16 01:40 Urine Nitrate NEGATIVE (NEGATIVE) 06/23/16 01:40 Urine Bilirubin NEGATIVE (NEGATIVE) 06/23/16 01:40 Urine Urobilinogen NEGATIVE EU (0.2-1.0) 06/23/16 01:40 Ur Leukocyte Esterase NEGATIVE (NEGATIVE) 06/23/16 01:40 Ur Culture Indicated? NOT INDICATED (NI) 06/23/16 01:40 Urine Glucose NEGATIVE (NEGATIVE) 06/23/16 01:40 Patient ABO/Rh O POSITIVE 06/23/16 01:15 Antibody Screen NEGATIVE 06/23/16 01:15 Visualized and Interpreted imaging results: Yes Interpretation: CT abd/pelvis: no acute pathology, chronic pulmonary nodules Assessment & Plan Assessment: Patient is 56/M with COPD, chronic resp failure, chronic pain who presents to the ED after an episode of hematemesis. He is hemodynamically stable, H/H stable , initiated on a PPI. Plan: # acute hematemesis Pt describes about 2 cup-volume of hematemesis, has not had any repeat episodes since arrival to the ED. Last BM was 1 day ago and normal. CT abd/pelvis does not reveal any acute pathology. He remains hemodynamically stable, will monitor H/H q6, consult GI for EGD and continue IV pantoprazole drip. Trigger possible daily full dose aspirin use, will hold this. If bleeding becomes significant, pt HD unstable, will transfuse platelets. # lactic acidosis Likely related to volume depletion from acute vomiting. Given IVF resuscitation in ED and lactate has normalized. Will cont to monitor. # DM2 Hyperglycemic on presentation. Will monitor FS q4h and place on insulin sliding scale coverage. # COPD, chronic respiratory failure Respiratory status stable on baseline 2L via NC. Will provide duoneb prn and continue O2 supplementation. # chronic pain syndrome Patient has a history of multiple skeletal traumas and is on chronic opioids therapy. He reports pain is currently at baseline, will confirm and cont home regimen. # dispo: admit as observation status for monitoring of H/H, EGD, and then likely discharge home if remains stable # gen: NPO DVT ppx: SCDs Full code
[2016-06-23] MEDS ORDERED: D50W 25 GM/50 ML SYR IVP PRN (05:05)
[2016-06-23 05:54] LABS: % IMMATURE GRANULYOCYTES 0.6 % (0.0-1.1); ABSOLUTE IMMATURE GRANULOCYTES 0.05 10^3/uL (0.00-0.10); ADD DIFF? NO; ADD MORPH? NO; ADD SCAN? NO; ATYPICAL LYMPHOCYTE FLAG 0 (0-99); FRAGMENT RBC FLAG 0 (0-99); HEMOGLOBIN 12.9 g/dL (13.7-17.5); LEFT SHIFT FLG 0 (0-99); LIPEMIA HEMOLYSIS FLAG 90 (0-99); MEAN CELL HEMOGLOBIN 31.3 pg (27.9-34.1); MEAN CELL HEMOGLOBIN CONCENTR. 33.9 g/dL (32.4-36.7); MEAN CELL VOLUME 92.2 fL (81.5-99.8); MEAN PLATELET VOLUME 9.9 fL (8.7-11.7); PLATELET CLUMPS FLAG 0 (0-99); PLATELET COUNT 253 10^3/uL (150-400); RED BLOOD CELL COUNT 4.12 10^6/uL (4.40-6.38); RED CELL DISTRIBUTION WIDTH 13.7 % (11.5-15.2)
[2016-06-23] MEDS: NS 1,000 ML IV SCH ×2 (06:01→12:58)
[2016-06-23 06:30] LABS: ANION GAP 9 mEq/L (8-16); CALCIUM 8.1 mg/dL (8.5-10.4); CARBON DIOXIDE 25 mEq/l (22-31); CHLORIDE 109 mEq/L (97-110); CREATININE 0.9 mg/dL (0.7-1.3); GLOMERULAR FILTRATION RATE > 60; GLUCOSE 139 mg/dL (70-100); MAGNESIUM 1.7 mg/dL (1.6-2.3); SODIUM 143 mEq/L (134-144)
--- NOTE | 2016-06-23 08:39 | CT ---
CT Scan of the Abdomen and Pelvis (With Contrast) June 23, 2016 at 0209 hours Indication: Abdominal pain. Hematemesis. Technique: 100 mL of Isovue 300 were given intravenously by machine power injection. Multidetector h elical CT imaging was performed from the diaphragm to the symphysis pubis. Dose reduction techniques were utilized. Findings: Abdomen: Nodular scarring is seen posteriorly in the right lower lobe with adjacent suture material s table in appearance. A 6 mm noncalcified pulmonary nodule is seen laterally in the left lower lobe an d a 5 mm pulmonary nodule in the right middle lobe stable in appearance. Other smaller nodules are al so stable. No evidence for acute airspace consolidation. There is diffuse decreased attenuation in th e liver. Gallbladder is unremarkable. There is atrophy of the pancreas. Spleen is unremarkable. Adren al glands are unremarkable. Both kidneys enhance normally without evidence for mass or hydronephrosis . No significant abdominal lymphadenopathy. Pelvis: Mild diverticular disease is seen in the sigmoid colon without evidence for diverticulitis. T here is diffuse stool in the colon. Appendix is normal in size. No evidence for small bowel obstructi on. No significant free fluid in the pelvis. Mild multilevel degenerative change is seen in the lumba r spine. Impression: 1. Constipation. Diverticulosis without evidence for diverticulitis. No CT findings for appendicitis. 2. Atrophy of the pancreas. 3. Fatty infiltration of the liver. 4. Degenerative disk and degenerative joint disease lumbar spine. Results called to Dr. Ayo Pisano at 0245 hours.
[2016-06-23] MEDS ORDERED: IPRATROPIUM/ALBUTEROL 3 ML DEYVIAL IH PRN (08:53)
[2016-06-23] MEDS ORDERED: PANTOPRAZOLE SODIUM 40 MG in NS 100 ML IV SCH (09:00)
[2016-06-23] MEDS: INSULIN LISPRO 100 UNIT/ML SC SCH ×3 (09:09→17:01)
--- NOTE | 2016-06-23 09:52 | HOSPPROG ---
Hospitalist Progress Note Assessment/Plan: The patient is seen this morning. He is no longer vomiting and has not passed any blood since last night. He denies chest pain, shortness of breath, lightheadedness. He still has some mild abdominal cramping. Repeat follow-up CBC does show some mild decrease in hemoglobin to 12.9. Hemodynamics were stable. I have contacted Dr. Jong Paris who will see him today and perform upper endoscopy. Will continue proton pump inhibitors for now and hold his aspirin. DVT prophylaxis mechanical only due to bleeding Objective: Vital Signs Temp Pulse Resp BP Pulse Ox 36.7 C 58 L 19 122/72 H 95 06/23/16 08:59 06/23/16 08:59 06/23/16 08:59 06/23/16 08:59 06/23/16 08:59 Laboratory Results 06/23/16 05:30 06/23/16 05:30 06/22/16 06/23/16 06/24/16 06:59 06:59 06:59 Intake Total 1999 Balance 1999 PT 12.2 SEC (12.0-15.0) 06/23/16 00:54 INR 0.91 (0.83-1.16) 06/23/16 00:54 ICD10 Worksheet Patient Problems: Problems Problem Status Diagnosed Hematemesis Acute COPD - Acute exacerbation of chronic obstructive airways disease Active Pulmonary embolism Active COPD exacerbation Acute Diarrhea Acute Dyspnea Acute Upper respiratory infection Acute Vomiting Acute
[2016-06-23] MEDS ORDERED: oxyCODONE IR 5 MG TAB PO SCH (11:30)
[2016-06-23] MEDS: oxyCODONE IR 15 MG TAB PO SCH ×2 (12:17→20:45)
[2016-06-23] MEDS: oxyCODONE IR 5 MG TAB PO SCH ×2 (12:18→20:45)
[2016-06-23] MEDS ORDERED: MIDAZOLAM 2 MG/2 ML VIAL ONE (15:33)
[2016-06-23] MEDS ORDERED: PROPOFOL 200 MG/20 ML VIAL ONE (15:35)
[2016-06-23] MEDS ORDERED: KETAMINE 100 MG/10 ML SYR IVP ONE (15:35)
[2016-06-23] MEDS ORDERED: EPINEPHrine 1 MG/10 ML SYR IVP ONE (15:45)
[2016-06-23] MEDS ORDERED: LOSARTAN POTASSIUM 50 MG TAB PO SCH (18:00)
[2016-06-23 19:55] VITALS: RESP 16; O2SAT 93
[2016-06-23] MEDS ORDERED: MAGNESIUM HYDROXIDE 30 ML UDCUP PO PRN (20:43)
[2016-06-23] MEDS: ALLOPURINOL 300 MG TAB PO SCH (20:44)
[2016-06-23] MEDS ORDERED: ATORVASTATIN CALCIUM 40 MG TAB PO SCH (21:00)
--- NOTE | 2016-06-23 21:34 | GCON ---
[f rep st] CONSULTATION CHIEF COMPLAINT: Hematemesis. HISTORY OF PRESENT ILLNESS: I have been asked to see this patient in consultation by Dr. Keenan. Th e patient is a 56-year-old gentleman with COPD, chronic pain syndrome who presented to the ED with co mplaint of nausea, vomiting, bright red blood, hematemesis. He had been eating dinner that evening a round 9:00 p.m., felt nauseous, started vomiting. Initially vomited the contents of his stomach. Vo mited his medicine then he reported vomiting about 2 cups of bright red blood with clot and then a 2n d episode of a smaller amount of bright red blood with clots. He had general abdominal discomfort. No lightheadedness or dizziness. He denied chest pain, shortness of breath. He has not had a previo us endoscopy or colonoscopy in the past. He does not drink any alcohol but does take aspirin on a da gabo basis. He has no prior history of GI bleeding. He was hemodynamically stable in the emergency d epartment. He was started on a proton pump inhibitor. He had a CT scan of the abdomen which was ess entially unremarkable. His hematocrit was 38.8 with a BUN of 13 and a creatinine of 0.9. PAST MEDICAL HISTORY: Remarkable for chronic obstructive pulmonary disease, diabetes mellitus types 2, previous history of pulmonary embolus, hypercholesterolemia and gout. PAST SURGICAL HISTORY: Negative. FAMILY HISTORY: Negative. SOCIAL HISTORY: He is a nonsmoker, retired lives with his . 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 REVIEW OF SYSTEMS: Negative for 10 systems other than in HPI. MEDICATIONS: Albuterol, allopurinol, Lipitor, Cozaar, oxycodone IR, DuoNeb, OxyContin, psyllium and metformin. PHYSICAL EXAM: VITAL SIGNS: 122/72, respiratory rate 19, 95% sat on 2 L. GENERAL: A very pleasant gentleman, no acute distress. HEENT: Normocephalic, atraumatic. EOMI. NECK: Supple. LUNGS: Cl ear. CARDIAC: Normal S1, S2 without murmur. ABDOMEN: Benign. No hepatosplenomegaly, nontender. Slight tenderness to palpation left abdomen. EXTREMITIES: Without clubbing, cyanosis, edema. SKIN: Warm, dry and intact without rashes. NEURO: Nonfocal. Cranial nerves 2-12 intact. PSYCHIATRIC: Alert and oriented x3 with normal affect. LABORATORY DATA: Serum sodium 143, potassium 4.0, chloride 109, CO2 25, BUN of 13, creatinine of 0.9 , blood sugar 139, total bilirubin of 0.6, AST 23, ALT 37, alkaline phosphatase of 90. Hemoglobin 12 .9, hematocrit 38. IMPRESSION: A 56-year-old gentleman with significant comorbid disease with COPD, chronic pain syndro me, diabetes myelitis with episode of nausea, vomiting and hematemesis. Essentially normal hematocri t. Suspect possible Tawnya-Jacobson tear. Also in the differential esophagitis, peptic ulcer disease, gastritis. RECOMMENDATIONS: Keep n.p.o., IV Protonix, serial hemoglobin and hematocrit, will proceed with urgen t endoscopy. Will follow with you. /[id number]/MODL
--- NOTE | 2016-06-24 03:10 | GPN ---
[f rep st] PROCEDURE NOTE PROCEDURE PERFORMED: EGD with biopsy. PREOPERATIVE DIAGNOSIS: Hematemesis. POSTOPERATIVE DIAGNOSIS: Essentially normal upper endoscopy. No clear source of patient's gastroint estinal bleeding identified. INDICATIONS: A 56-year-old gentleman with significant comorbid disease, COPD, diabetes, with episode s of nausea, vomiting, with retching last night. Patient vomited about 2 cups of bright red blood. He has had no abdominal pain, no history of NSAID use. He has been hemodynamically stable with a nor mal hematocrit. Presents now for diagnostic endoscopy. PHYSICAL EXAM: VITAL SIGNS: Stable. LUNGS: Clear. CARDIAC: Normal S1, S2 without murmur. INDICATIONS: Procedure was explained to the patient. Risks and benefits of the procedure were outli moses to the patient. Informed consent was obtained. PREOPERATIVE MEDICATIONS: Per Anesthesia. FINDINGS OF PROCEDURE: Patient was placed in the left lateral decubitus position. The GIF-180 video scope was passed through the oropharynx under direct visualization. The proximal esophagus was norm al, with GE junction at 40 cm. Z-line was irregular. GE junction biopsies were obtained to rule out short-segment Diaz's. The endoscope was passed to the stomach. There was normal antral body, wi th mild erythema and mild gastritis of the antrum. The endoscope was passed to the pylorus and the 1 st and 2nd portions of the duodenum. Duodenal sweep was normal. Endoscope was brought back in the s tomach and retroflexed in the stomach. and cardia. Endoscope was un-retroflexed. Biopsi es were taken of the antral body for Helicobacter pylori. The scope was then withdrawn. The patient tolerated the procedure well. IMPRESSION: 1. Essentially normal upper endoscopy. No clear source of gastrointestinal bleeding identified. 2. Irregular Z-line, rule out Diaz's. 3. Gastritis, status post biopsies for Helicobacter pylori. RECOMMENDATIONS: 1. Advance diet as tolerated with regular diet. 2. Repeat H and H in the morning. Thank you for allowing me to participate in the care of this patient. We will sign off. Please call with any further questions. /[id number]/MODL
[2016-06-24 07:57] VITALS: BP 123/77; PULSE 61; TEMP 98
[2016-06-24] MEDS ORDERED: PANTOPRAZOLE SODIUM 40 MG TAB PO SCH (09:00)
[2016-06-24] MEDS: ALLOPURINOL 300 MG TAB PO SCH (09:27)
[2016-06-24] MEDS: oxyCODONE IR 15 MG TAB PO SCH (09:27)
[2016-06-24] MEDS: oxyCODONE IR 5 MG TAB PO SCH (09:27)
[2016-06-24] MEDS: INSULIN LISPRO 100 UNIT/ML SC SCH (09:48)
[2016-06-24] MEDS ORDERED: MAGNESIUM HYDROXIDE 30 ML UDCUP PO PRN (09:57)
[2016-06-24] MEDS ORDERED: POLYETHYLENE GLYCOL 3350 17 GM PKT PO PRN (09:57)
[2016-06-24] MEDS ORDERED: LACTULOSE 20 GM/30 ML UDCUP PO PRN (09:57)
[2016-06-24] MEDS ORDERED: BISACODYL 10 MG SUPP PR PRN (09:57)
[2016-06-24] MEDS ORDERED: POLYETHYLENE GLYCOL 3350 17 GM PKT PO SCH (10:00)
--- NOTE | 2016-06-24 10:13 | PDDCSUM ---
Discharge Summary Discharge Summary: DIAGNOSIS: # Hematemesis, resolved, uncertain etiology # Unremarkable esophagogastroduodenoscopy # chronic constipation from narcotic use # Chronic pain syndrome with chronic daily use of prescribed narcotic # hypercholesterolemia PLANS: SUBJECTIVE: OBJECTIVE Vitals reviewed: Exam: alert oriented skin warm dry color ok resps not labored lungs clear BSs heart regular abd soft nondistended nontender, bowel sounds present limbs warm, no edema iv site ok
--- NOTE | 2016-06-24 10:17 | PDDCSUM ---
Discharge Summary Discharge Summary: DISCHARGE SUMMARY NOTE DISCHARGE DIAGNOSES: # HEMATEMESIS OF UNCERTAIN ETIOLOGY # UNREMARKABLE ESOPHAGOGASTRODUODENOSCOPY # CHRONIC CONSTIPATION FROM NARCOTIC USE # CHRONIC PAIN SYNDROME WITH CHRONIC DAILY PRESCRIBED NARCOTIC USE CONSULTANTS: Dr. Jong Paris PROCEDURES: EGD, no source of bleeding identified no abnormal findings HOSPITAL COURSE SUMMARY: This patient came to the hospital after vomiting and developing hematemesis. He remained hemodynamically stable throughout his hospital stay. His bleeding stopped by the time he arrived here in the hospital and he had only a mild decrease in hemoglobin. Final hemoglobin is 12.9. The patient had upper endoscopy with no sign of bleeding, no blood products, no lesions or other sources of bleeding identified. The cause of his episode is uncertain. It may have been related to the vomiting but there was no tear seen. At this point is felt to be stable for discharge to home. The patient also does note chronic constipation and has not had a bowel movement for 3 days at this time and were giving him a laxative at this time. He does take chronic narcotics for joint pains and this is probably because of constipation. He has been using fiber and milk a magnesia at home. I have stopped using milk of magnesia here in add MiraLax. MEDICATION CHANGES: Addition of Nexium 20 mg daily Addition of MiraLax 17 g packet once daily FOLLOW-UP PLAN: Follow-up with primary care doctor in 1 week Greater than 35 minutes bedside and care coordination time today
[2016-06-24] MEDS ORDERED: SENNOSIDES/DOCUSATE SODIUM TAB PO SCH (21:00)
[2016-06-25] MEDS ORDERED: metFORMIN HCL 500 MG TAB PO SCH (08:00)
== END 2016-06-24 15:00 | disposition home or self-care (01) ==
LOC: EDUNIT# → F1N 08:08
PROVIDERS: ADMIT Internal Medicine; ATTEND Internal Medicine
DX: K92.0 Hematemesis (principal); K29.70 Gastritis, unspecified, without bleeding; K59.03 Drug induced constipation; G89.4 Chronic pain syndrome; I10 Essential (primary) hypertension; E11.9 Type 2 diabetes mellitus without complications; J44.9 Chronic obstructive pulmonary disease, unspecified
CPT/HCPCS: 43239; 74177; 96365; 96375; 99285; G0378; J1170; J2250; J2704; Q9967

== ENCOUNTER 2016-09-23 01:26 | Emergency (ER) | payer MEDICAID ==
[2016-09-23 01:48] VITALS: O2SAT 93
[2016-09-23] MEDS ORDERED: CYCLOBENZAPRINE 10 MG TAB PO ONE (02:04)
--- NOTE | 2016-09-23 02:05 | EDPHY ---
H & P Stated Complaint: lumbar pain starting at 1600 yesterday, able to walk Time Seen by Provider: 09/23/16 01:37 HPI/ROS: Chief Complaint: Back pain HPI: 56-year-old male with a history of recent right shoulder reconstruction and chronic back knee and shoulder pain went to stand up yesterday evening and felt a pull in his left back. Since then he has not been able to stand up completely straight. He cannot completely straighten his leg without pain is back is not need any numbness or tingling. He is able to walk. No new weakness. No urinary stay retention or loss of urine. Does have a history of prior back problems in the past and had an MRI in the past which chilled multiple disc level disease. No fevers or chills. He did take some of his oxycodone without significant relief. He has stated that the past Flexeril to help with the symptoms. He is unable to take ibuprofen as he is been anaphylactic type ibuprofen in the past. Denies any other recent illness. No leg pain or swelling. No chest pain or shortness of breath ROS: 10 point Review of Systems is negative except as noted in the HPI. PMH: Chronic back pain, shoulder pain, type 2 diabetes Social History: No smoking, no alcohol, no recreational drug use Family History: non-contributory Physical Exam: Gen: Awake, Alert, No Distress HEENT: Nose: no rhinorrhea Eyes: PERRLA, EOMI Mouth: Moist mucosa Neck: Supple, no JVD Chest: nontender, lungs clear to auscultation Heart: S1, S2 normal, no murmur Abd: Soft, non-tender, no guarding Back: no CVA tenderness, no midline tenderness left paraspinal back pain down into his left buttocks reproducing presenting complaint Ext: no edema, non-tender, right shoulder in a shoulder immobilizer. Skin: no rash Neuro: CN II-XII intact, Sensation grossly intact, Strength 5/5 in bilateral upper and lower extremities - Personal History Current Tetanus/Diphtheria Vaccine: Yes Current Tetanus Diphtheria and Acellular Pertussis (TDAP): Yes Tetanus Vaccine Date: ~2011 - Medical/Surgical History Hx Asthma: Yes Hx Chronic Respiratory Disease: Yes Hx Diabetes: Yes Hx Cardiac Disease: No Hx Renal Disease: No Hx Cirrhosis: No Hx Alcoholism: No Hx HIV/AIDS: No Hx Splenectomy or Spleen Trauma: No Other PMH: Chronic pain, PE x5, asthma/COPD, DM II, Lung surgery-biopsies, kidneystones, hossein shoulder tears, r knee injuries, lower back pain, backfractures, R total shoulder replacement, HTN - Social History Smoking Status: Unknown if ever smoked Constitutional: Initial Vital Signs Temperature (C) 36.3 C 09/23/16 01:33 Heart Rate 75 09/23/16 01:33 Respiratory Rate 16 09/23/16 01:33 Blood Pressure 140/89 H 09/23/16 01:33 O2 Sat (%) 89 L 09/23/16 01:33 O2 Delivery Mode Room Air O2 (L/minute) 2 Allergies/Adverse Reactions: ibuprofen Allergy (Verified 06/23/16 08:43) Home Medications: Medication Instructions Recorded Allopurinol [Allopurinol 300 MG 300 mg PO BID 07/11/15 (RX)] Atorvastatin Calcium [Lipitor 40 40 mg PO HS 07/11/15 mg (*)] Losartan Potassium [Cozaar 50 mg 50 mg PO DAILY18 07/11/15 (*)] Ipratropium/Albuterol [Duoneb (*)] 3 ml IH Q6 PRN 06/02/16 metFORMIN HCL [Glucophage 500 mg 500 mg PO BIDMEAL 06/02/16 (*)] Psyllium Husk/Aspartame [Metamucil 3.4 gm PO DAILY 06/23/16 Fiber Singles Packet] oxyCODONE HCL [Oxycontin] 40 mg PO BID 06/23/16 oxyCODONE IR [Oxycodone Ir (*)] 40 mg PO BID 06/23/16 Polyethylene Glycol 3350 [Miralax 17 gm PO DAILY #30 pkt 06/24/16 17 gm (*)] ADVAIR HFA 230-21 MCG INHALER 09/23/16 CYCLOBENZAPRINE HCL [Flexeril] 5 mg PO TID PRN #10 tab 09/23/16 Pioglitazone HCl 09/23/16 Warfarin Sodium 09/23/16 Medical Decision Making ED Course/Re-evaluation: Patient is feeling improved after the Flexeril. He has no red flags for cauda equina syndrome or epidural abscess. He is neurologically intact. He has an appointment scheduled for his primary care doctor in 2 days. Will discharge him with Flexeril and his usual pain medicine and follow up as scheduled. - Data Points Medications Given: Discontinued Medications Cyclobenzaprine HCl (Flexeril) 10 mg PO EDNOW ONE Stop: 09/23/16 02:05 Last Admin: 09/23/16 02:09 Dose: 10 mg Departure - Departure Disposition: Home, Routine, Self-Care Clinical Impression: Back pain Condition: Good Instructions: Cyclobenzaprine (By mouth), Acute Low Back Pain (ED), Lower Back Exercises (ED) Additional Instructions: Follow up with your primary care physician in 2 days as scheduled for re- evaluation. Return to the emergency depart for worsening pain, numbness, weakness, difficulty with urination, or any other concerns Referrals: Andrea Last MD [Primary Care Provider] - As per Instructions Prescriptions: CYCLOBENZAPRINE HCL [Flexeril] 5 mg PO TID PRN #10 tab PRN Reason: Spasms
[2016-09-23] MEDS ORDERED: CYCLOBENZAPRINE 10MG PREPACK#3 BTL TAKEHOME ONE (02:52)
[2016-09-23 04:03] VITALS: BP 158/85; PULSE 16; RESP 90; TEMP 97.7
== END 2016-09-23 04:01 | disposition home or self-care (01) ==
LOC: EDUNIT#
DX: M54.9 Dorsalgia, unspecified (principal); G89.29 Other chronic pain; E11.9 Type 2 diabetes mellitus without complications; I10 Essential (primary) hypertension; J44.9 Chronic obstructive pulmonary disease, unspecified; Z79.01 Long term (current) use of anticoagulants; Z79.84 Long term (current) use of oral hypoglycemic drugs

== ENCOUNTER → 2016-11-02 | Outpatient (CLI) | payer MEDICAID | LOC: FIMAGING 14:18 | PROVIDERS: ATTEND Physical Medicine & Rehabilitation | DX: M51.36 Other intervertebral disc degeneration, lumbar region (principal); M43.16 Spondylolisthesis, lumbar region; M48.06 Spinal stenosis, lumbar region; M12.88 Other specific arthropathies, not elsewhere classified, other specified site ==

== ENCOUNTER 2017-01-21 11:48 | Inpatient (IN) | payer MEDICAID ==
[~2017-01-21 11:48] MED LIST: ceFAZolin 2 GM/DEXTROSE 100 ML IV ONE
[2017-01-21] MEDS ORDERED: THROMBIN (BOVINE) 20,000 UNIT VIAL TP ONE (12:44)
[2017-01-21] MEDS ORDERED: BUPIVACAINE 0.25% 30 ML SDV ONE (12:44)
[2017-01-21] MEDS ORDERED: LR 1,000 ML IV ONE (12:45)
[2017-01-21] MEDS ORDERED: BACITRACIN 50,000 UNITS/10 ML SYR IRR ONE (12:45)
--- NOTE | 2017-01-21 13:48 | PDHPUP ---
History & Physical Update H&P update statement: This history and physical update is based on an assessment of the patient which was completed after admission or registration (within 24 hours), but prior to the surgery/procedure.
[2017-01-21] MEDS ORDERED: MIDAZOLAM 2 MG/2 ML VIAL IVP ONE (13:54)
--- NOTE | 2017-01-21 13:54 | PDANEPAE ---
ANE Past Medical History - Cardiovascular History Hx Hypertension: Yes Hx Arrhythmias: No Hx Chest Pain: No Hx Coronary Artery / Peripheral Vascular Disease: Yes Hx CHF / Valvular Disease: No Hx Palpitations: No Cardiovascular History Comment: STRONG FAMILY HX OF HEART DISEASE. 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 - Pulmonary History Hx COPD: Yes Hx Recent Upper Respiratory Infection: Yes Hx Oxygen in Use at Home: Yes O2 in Use at Home (L/minute): 2 Hx Sleep Apnea: No Sleep Apnea Screening Result - Last Documented: Positive Pulmonary History Comment: 2L/MIN CONTINUOUS O2, HX PE AND PULMONARY NODULES - Neurologic History Hx Cerebrovascular Accident: No Hx Seizures: No Hx Dementia: No - Endocrine History Hx Diabetes: Yes Endocrine History Comment: ORAL CONTROL - Renal History Hx Renal Disorders: No - Liver History Hx Hepatic Disorders: No - Neurological & Psychiatric Hx Hx Neurological and Psychiatric Disorders: No - Cancer History Hx Cancer: No - Congenital Disorder History Hx Congenital Disorders: No - GI History Hx Gastrointestinal Disorders: Yes Gastrointestinal History Comment: HX MINOR GI BLEED 2015, NOW ON PROTONIX - Surgical History Prior Surgeries: R SHOULDER RECONSTRUCTION 08/2016. 2011 PE REMOVAL ANE Review of Systems Review of Systems: - Exercise capacity METS (RN): 3 METS ANE Patient History - Allergies Allergies/Adverse Reactions: ibuprofen Allergy (Severe, Verified 01/20/17 19:31) Anaphylaxis montelukast [From Singulair] Allergy (Severe, Verified 01/20/17 19:31) Anaphylaxis - Home Medications Home Medications: Albuterol Sulfate [Proair Hfa] 8.5 gm IH Q4H PRN 01/20/17 [Last Taken 01/20/17] Allopurinol [Allopurinol] 300 mg PO BID 01/20/17 [Last Taken Unknown] Atorvastatin Calcium [Lipitor 40 mg (*)] 40 mg PO HS 01/20/17 [Last Taken ] Fluticasone/Salmeterol [Advair Hfa 115-21 Mcg Inhaler] 2 puffs PO BID 01/20/17 [ Last Taken Unknown] Ipratropium/Albuterol [Duoneb (*)] 3 ml IH Q4 01/20/17 [Last Taken 01/20/17] Losartan Potassium [Cozaar 50 mg (*)] 50 mg PO DAILY 01/20/17 [Last Taken Unknown] Metformin HCl [Metformin 1000 mg] 1,000 mg PO BIDMEAL 01/20/17 [Last Taken 01/18] Pantoprazole Sodium [Protonix 40mg (*)] 40 mg PO DAILY 01/20/17 [Last Taken 10/01] Pioglitazone HCl [Pioglitazone HCl] 45 mg PO DAILY 01/20/17 [Last Taken 01/18/17 ] Tiotropium [place] [Spiriva] 18 mcg PO DAILY 01/20/17 [Last Taken Unknown] oxyCODONE HCL [Oxycontin] 40 mg PO BID 01/20/17 [Last Taken 01/21/17 06:00] oxyCODONE IR [Oxycodone Ir (*)] 20 mg PO Q4H PRN 01/20/17 [Last Taken 01/20/16] - NPO status NPO Since - Liquids (Date): 01/20/17 NPO Since - Liquids (Time): 23:00 NPO Since - Solids (Date): 01/20/17 NPO Since - Solids (Time): 21:00 - Smoking Hx Smoking Status: Unknown if ever smoked - Family Anes Hx Family Hx Anesthesia Complications: NEG ANE Labs/Vital Signs - Vital Signs Blood Pressure: 116/74 Heart Rate: 76 Respiratory Rate: 14 O2 Sat (%): 95 Height: 185.42 cm Weight: 99.79 kg ANE Physical Exam - Airway Neck exam: FROM Mouth exam: normal dental/mouth exam - Pulmonary Pulmonary: no respiratory distress, clear to auscultation - Cardiovascular Cardiovascular: regular rate and rhythym, no murmur, rub, or gallop - ASA Status ASA Status: III ANE Anesthesia Plan Anesthesia Plan: general endotracheal anesthesia
[2017-01-21] MEDS ORDERED: MIDAZOLAM 2 MG/2 ML VIAL ONE (13:55)
[2017-01-21] MEDS ORDERED: HYDROmorphONE/DILAUDID 2 MG/ML INJ ONE ×3 (14:07→14:47)
[2017-01-21] MEDS ORDERED: KETAMINE 100 MG/10 ML SYR ONE (14:07)
[2017-01-21] MEDS ORDERED: PROPOFOL 200 MG/20 ML VIAL ONE (14:07)
[2017-01-21] MEDS ORDERED: DEXAMETHASONE 4 MG/ML VIAL ONE ×3 (14:08)
[2017-01-21] MEDS ORDERED: ONDANSETRON 4 MG/2 ML VIAL ONE (14:08)
[2017-01-21] MEDS ORDERED: LIDOCAINE 2% 5 ML SDV ONE (14:08)
[2017-01-21] MEDS ORDERED: DEXMEDETOMIDINE HCL 200 MCG/2 ML VIAL IV ONE (14:20)
[2017-01-21] MEDS ORDERED: ROCURONIUM 50 MG/5 ML VIAL ONE (14:49)
[2017-01-21] MEDS ORDERED: SUCCINYLCHOLINE CHLORIDE*ANESTHESIA ONLY*200 MG/10 ML SYR IVP ONE (14:50)
[2017-01-21] MEDS ORDERED: GLYCOPYRROLATE 0.2 MG/1 ML VIAL ONE (14:55)
[2017-01-21] MEDS ORDERED: LABETALOL HCL 50 MG/10 ML SYR IVP PRN (15:22)
[2017-01-21] MEDS ORDERED: HYDROmorphONE/DILAUDID 1 MG/ML SYR IVP PRN (15:22)
[2017-01-21] MEDS ORDERED: ACETAMINOPHEN 500 MG TAB PO PRN (15:22)
[2017-01-21] MEDS ORDERED: ALBUTEROL 3 ML DEYVIAL IH PRN (15:22)
[2017-01-21] MEDS ORDERED: OXYCODONE/APAP 5/325 TAB PO PRN (15:22)
[2017-01-21] MEDS ORDERED: NALOXONE HCL 0.4 MG/ML INJ IVP PRN ×2 (15:22→18:50)
[2017-01-21] MEDS ORDERED: PROMETHAZINE HCL 25 MG/ML INJ IVP PRN (15:22)
[2017-01-21] MEDS ORDERED: ENALAPRILAT DIHYDRATE 1.25 MG/ML VIAL IVP PRN (15:22)
[2017-01-21] MEDS ORDERED: LR 500 ML IV PRN (15:22)
[2017-01-21] MEDS ORDERED: MEPERIDINE 25 MG/ML SYR IVP PRN (15:22)
[2017-01-21] MEDS ORDERED: ONDANSETRON 4 MG/2 ML VIAL IVP PRN ×2 (15:22→18:50)
[2017-01-21] MEDS ORDERED: SURGIFLO MATRIX KIT WITH THROMBIN TP ONE (16:54)
[2017-01-21] MEDS ORDERED: DIAZEPAM 10 MG/2 ML SYR IVP PRN (18:02)
--- NOTE | 2017-01-21 18:34 | POSTOPPROG ---
Post Op Note Date of Operation: 01/21/17 Surgeon: Remberto Wilson Production Lapping Machine Operator: Hipolito Torre MD Anesthesia: GET(General Endotracheal) Pre-op Diagnosis: left L5 and S1 radiculopathies Post-op Diagnosis: same Indication: see above Procedure: L4-5, L5-S1 TLIF Findings: successful lumbar fusion Inf/Abcess present in the surg proc area at time of surgery?: No EBL: 100-500 (400) Complications: none Drains: Keaton Rico
[2017-01-21] MEDS ORDERED: fentaNYL 100 MCG/2 ML INJ ONE ×2 (18:35→18:52)
[2017-01-21] MEDS ORDERED: DIAZEPAM 10 MG/2 ML SYR ONE (18:35)
[2017-01-21] MEDS: fentaNYL 100 MCG/2 ML INJ IVP PRN ×3 (18:40→19:03)
--- NOTE | 2017-01-21 18:49 | POSTANESTH ---
Post Anesthetic Evaluation Cardiovascular Status: Normal, Stable, Similar to Pre-Op Cond Respiratory Status: Similar to Pre-op Cond. Level of Consciousness/Mental Status: Can Participate in Eval, Mildly Sleepy, Arousable Pain Control: Inadeq, Add Tx Required (Reports pain in L shoulder (surgically repaired 5 mos ago).) Nausea/Vomiting Control: Adequate, Prn Tx Ordered Complications Possibly Related to Anesthesia: None Noted
[2017-01-21] MEDS ORDERED: POLYETHYLENE GLYCOL 3350 17 GM PKT PO PRN (18:50)
[2017-01-21] MEDS ORDERED: BISACODYL 10 MG SUPP PR PRN (18:50)
[2017-01-21] MEDS ORDERED: diphenhydrAMINE 25 MG CAP PO PRN (18:50)
[2017-01-21] MEDS ORDERED: ONDANSETRON DISINTEGRATING 4 MG TAB PO PRN (18:50)
[2017-01-21] MEDS ORDERED: LACTULOSE 20 GM/30 ML UDCUP PO PRN (18:50)
[2017-01-21] MEDS ORDERED: HYDROmorphONE/DILAUDID 6 MG/30 ML PCA IV PRN (18:50)
[2017-01-21] MEDS ORDERED: oxyCODONE IR 5 MG TAB ONE (19:08)
[2017-01-21] MEDS: oxyCODONE IR 5 MG TAB PO PRN ×2 (19:09→23:20)
[2017-01-21] MEDS ORDERED: ALBUTEROL 200 PUFFS/18 GM MDI IH PRN (19:15)
[2017-01-21] MEDS: ALLOPURINOL 300 MG TAB PO SCH (20:18)
[2017-01-21] MEDS: ATORVASTATIN CALCIUM 40 MG TAB PO SCH (20:18)
[2017-01-21] MEDS: SENNOSIDES/DOCUSATE SODIUM TAB PO SCH (20:19)
[2017-01-21] MEDS: FAMOTIDINE 20 MG TAB PO SCH (20:19)
--- NOTE | 2017-01-21 21:03 | GOP ---
[f rep st] OPERATIVE REPORT DATE OF OPERATION: 01/21/2017 SURGEON: Remberto Wilson MD NEUROSURGEON: Remberto Wilson MD PREOPERATIVE DIAGNOSIS: Left L5 and S1 radiculopathies with severe foraminal and lateral recess stenosis, with spinal listhesis at L4-5. POSTOPERATIVE DIAGNOSIS: Left L5 and S1 radiculopathies with severe foraminal and lateral recess stenosis, with spinal listhesis at L4-5. PROCEDURE PERFORMED: 1. L4-5, L5-S1 transforaminal lumbar interbody fusion. 2. Placement of interbody device at L4-5, L5-S1. 3. Posterior segmental pedicle screw instrumentation at L4, L5, and S1. 4. O-arm stereotactic navigation for screw placement. 5. Intraoperative neurophysiological physiologic monitoring, including somatosensory evoked potentials, EMG, and screw head monitoring. 6. [place] of local autograft. 7. Use of allograft bone morphogenic proteins and demineralized bone matrix. FINDINGS: Successful TLIF. SPECIMENS: None. ESTIMATED BLOOD LOSS: 400 cc. DESCRIPTION OF PROCEDURE: After informed consent was obtained from the patient , the patient was brought to the operating room, and a formal time-out was performed, identifying the patient by name, medical record number, and date of . Preoperative antibiotics were given. The endotracheal tube was placed, and general endotracheal anesthesia was smoothly induced. Patient was then turned to the prone position on the Keaton table, and all appropriate pressure points were padded and checked. All appropriate lines were placed for intraoperative neurophysiologic monitoring. The lumbar region was then sterilized, prepped, and draped in the normal sterile fashion. 20 cc of 0.25% Marcaine with epinephrine was infiltrated in the skin on the incision line for hemostasis. A needle was placed. The O-arm was brought into the field, and a lateral radiograph confirmed the location of the incision spanning the L4-S1 pedicles. The skin incision was made using a 10 blade and the subcutaneous tissues were dissected using monopolar electrocautery. The fascia was opened in the midline, and the paraspinous muscles were taken down from the spinous process and lamina of L4, L5, and S1. Self-retaining retractors were placed. The facet joints were then localized at L4-5 and L5-S1, and lateral exposure was obtained. The pedicles of S1 were quite medial/lateral directed; therefore, it was quite difficult to expose these under the iliac crests. Once we had good exposure of all the anatomic landmarks, the stereotactic arc was placed and an O-arm spin was obtained. We then used this to localize the pedicle entry sites at each level. Due to the [id number]-[id number] trajectory of the pedicles at S1, we undermined the superficial lumbar fascia and made a lateral incision in the deep fascia, and were able to get the appropriate trajectory through the muscle on both sides. We began by decorticating the pedicle entry points and then using a 4.5-5.5 mm tap to tap each hole. Each hole was then probed using a ball -tip probe and no breach was identified. We then placed the screws in the following manner. On the right, at S1 we placed a 6.5 x 45 mm Medtronic Solaris screw. At L5 on the right, we placed a 6.5 x 50 mm Medtronic Solaris screw. At L4 on the right. We placed a 6.5 x 55 mm Medtronic Solaris screw. On the left, we placed a 6.5 x 50 mm Medtronic Solaris screw at S1. At L5 we placed 6.5 x 50 mm screw, and at L4 we placed a 6.5 x 55 mm screw. Each screw head was then tested using monitoring, and all of them stimulated below 20, which was a threshold. At this point, a 2nd O-arm spin was obtained which showed all the screws in good anatomic placement with no breach of the pedicles. At this point, we then brought the operative microscope into the field. The disk space retraction was placed on the screw heads at L5-S1 on the left, and the pars was drilled. This allowed us to remove en bloc the inferior facet of L5, and we used Kerrison punches and a high-speed drill to then drill out the superior facet of S1. This completely decompressed the foramen. The nerve root was identified and retracted medially, and the L5 nerve root was completely decompressed, and the foramen as well. This led to the disk space, and the disk space was then entered sharply using an 11 blade. The disk space was then aggressively eradicated using rasps and curette. The endplates were decorticated, and all the disk material was removed. This disk space was then sized for an 8 mm x 28 mm Medtronic Elevate cage, which was packed with locally harvested morselized autograft and BMP. This cage was placed into the disk space under navigation and opened to its full extent of 12 mm. AP and lateral radiographs were performed, confirming good placement of the graft. We next moved up to L4-5, and we drilled the pars on the left at L4-5 as well. The inferior facet was removed, and the superior articulating facet of L5 was removed using Kerrison punches. This allowed us to decompress the foramen completely. The nerve root was then retracted medially, and the disk space was again and eradicated using rasps and punches. The endplates were decorticated, and this disk space was also sized for an 8 mm x 28 mm Sol Voltaicstronic Elevate cage, which was packed with morselized autograft and allograft BMP. This was then placed again under navigation into the disk space and opened to its full extent of 12 mm. Another AP and lateral radiograph confirmed good placement of this cage, as well. At this point, the wound was copiously irrigated using bacitracin irrigation. A piece of Gelfoam was placed over the foramen on the left side where the TLIF's had been performed. The screw heads were sized for 5.5 mm x 70 mm cobalt chromium rods, which were placed into the screw heads and locked in place using the locking caps which were tightened to their final torque. Next, the right-sided lamina of L4, L5, and S1 were decorticated, posterolateral fusion was performed using autograft, allograft BMP, and Progenix Plus demineralized bone matrix. At this point, the entire wound was copiously irrigated. All bleeding was controlled with bipolar electrocautery. A KURT drain was placed in the subfascial space. The fascia was then closed using interrupted 0 Vicryl sutures. Another 30 cc of 0.25% Marcaine was placed into the subcutaneous space, and the deep dermis was closed using interrupted 2-0 Vicryl. The skin was closed using Dermabond. The drain was connected to a sterile drainage system. Patient was then turned back into the supine position, where he was extubated and transferred to PACU in stable condition. There were no operative complications. I was scrubbed and present for the entire procedure. All sponge and needle counts were correct at the end of the case. CO-SURGEON: Hipolito Torre MD BRIEF CLINICAL HISTORY: The patient is a 57-year-old man who presented with a long history of left leg pain that was unresponsive to conservative management. His MRI showed a spondylolisthesis grade I at L4-5 with severe lateral recess and foraminal stenosis on the left. He also had gqsvzwib-[id number]-[id number] foraminal stenosis and lateral recess stenosis at L5-S1 on the left and EMG evidence of an S1 radiculopathy. We discussed the options, including a more minimal procedure versus a 2-level TLIF, and he agreed to proceed. DRAIN: Subfascial KURT. FLUIDS AND URINE OUTPUT: Per the anesthesia record. /[id number]/MODL MTDD
[2017-01-21] MEDS: ACETAMINOPHEN 500 MG TAB PO SCH (21:25)
[2017-01-21] MEDS: ceFAZolin 2 GM/DEXTROSE 100 ML IV SCH (21:26)
[2017-01-21] MEDS: IPRATROPIUM/ALBUTEROL 3 ML DEYVIAL IH SCH (21:38)
[2017-01-21] MEDS: Fluticasone/Salmeterol [Advair Hfa 115-21 Mcg Inhaler] 2 PUFFS PO SCH (22:15)
[2017-01-21] MEDS: METHOCARBAMOL 750 MG TAB PO PRN (23:20)
[2017-01-22] MEDS: oxyCODONE IR 5 MG TAB PO PRN ×3 (03:17→19:34)
[2017-01-22] MEDS: DIAZEPAM 5 MG TAB PO PRN ×2 (03:18→20:49)
[2017-01-22] MEDS: IPRATROPIUM/ALBUTEROL 3 ML DEYVIAL IH SCH ×6 (04:01→22:35)
[2017-01-22] MEDS: ACETAMINOPHEN 500 MG TAB PO SCH ×3 (05:27→20:48)
[2017-01-22] MEDS: ceFAZolin 2 GM/DEXTROSE 100 ML IV SCH (05:27)
--- NOTE | 2017-01-22 07:52 | SOAPPROG ---
SOAP Progress Note Assessment/Plan: Assessment: POD#1 s/p L4-S1 TLIF, doing well, leg pain resolved Plan: -doing well, leg pain is resolved -KURT 230 out, will leave another day -post-op standing xrays -LSO brace when out of bed -pain control, will add celebrex for 2 days -PT/OT 01/22/17 07:50 Subjective: a lot of left shoulder, right knee, and back pain. Objective: Vital Signs Temp Pulse Resp BP Pulse Ox 37.2 C 110 H 18 121/73 H 92 01/22/17 07:33 01/22/17 07:33 01/22/17 07:33 01/22/17 07:33 01/22/17 07:33 01/21/17 01/22/17 01/23/17 05:59 05:59 05:59 Intake Total 4220 500 Output Total 1755 1350 Balance 2465 -850 AAOx3 strength full, no drift sensation intact wound c/d/i - Pending Discharge Pending Discharge Within 24 Hours: No Pending Discharge Within 48 Hours: Yes Pending Discharge Date: 01/24/17 Pending Discharge Time: 11:00 ICD10 Worksheet Patient Problems: Problems Problem Status Onset COPD - Acute exacerbation of chronic obstructive airways disease Active Pulmonary embolism Active COPD exacerbation Acute Diarrhea Acute Dyspnea Acute Hematemesis Acute Upper respiratory infection Acute Vomiting Acute
[2017-01-22] MEDS: metFORMIN HCL 500 MG TAB PO SCH ×2 (09:07→20:59)
[2017-01-22] MEDS: SENNOSIDES/DOCUSATE SODIUM TAB PO SCH ×2 (09:07→22:54)
[2017-01-22] MEDS: FAMOTIDINE 20 MG TAB PO SCH ×2 (09:07→20:49)
[2017-01-22] MEDS: ALLOPURINOL 300 MG TAB PO SCH ×2 (09:08→20:49)
[2017-01-22] MEDS: GABAPENTIN 300 MG CAP PO SCH ×4 (09:08→20:49)
[2017-01-22] MEDS: Fluticasone/Salmeterol [Advair Hfa 115-21 Mcg Inhaler] 2 PUFFS PO SCH ×2 (09:10→22:38)
[2017-01-22] MEDS: PIOGLITAZONE HCL 15 MG TAB PO SCH (09:11)
[2017-01-22] MEDS: LOSARTAN POTASSIUM 50 MG TAB PO SCH (09:11)
[2017-01-22] MEDS: PANTOPRAZOLE SODIUM 40 MG TAB PO SCH (09:11)
[2017-01-22] MEDS: TIOTROPIUM INHALER 18 MCG/DOSE 5 DOSE/MDI IH SCH ×2 (09:49→12:14)
[2017-01-22] MEDS: BUDESONIDE 1 MG IH SCH ×2 (12:14→22:41)
[2017-01-22] MEDS: MAGNESIUM HYDROXIDE 30 ML UDCUP PO PRN (19:35)
[2017-01-22] MEDS: ATORVASTATIN CALCIUM 40 MG TAB PO SCH (20:49)
[2017-01-23] MEDS: METHOCARBAMOL 750 MG TAB PO PRN ×2 (01:58→12:14)
[2017-01-23] MEDS: oxyCODONE IR 5 MG TAB PO PRN ×4 (01:58→14:40)
[2017-01-23] MEDS: IPRATROPIUM/ALBUTEROL 3 ML DEYVIAL IH SCH ×4 (03:06→13:56)
[2017-01-23 04:52] VITALS: TEMP 98.7
[2017-01-23] MEDS: ACETAMINOPHEN 500 MG TAB PO SCH ×2 (06:02→14:38)
[2017-01-23] MEDS: MAGNESIUM HYDROXIDE 30 ML UDCUP PO PRN (06:15)
[2017-01-23] MEDS: Fluticasone/Salmeterol [Advair Hfa 115-21 Mcg Inhaler] 2 PUFFS PO SCH (08:02)
[2017-01-23] MEDS: TIOTROPIUM INHALER 18 MCG/DOSE 5 DOSE/MDI IH SCH (08:05)
[2017-01-23] MEDS: BUDESONIDE 1 MG IH SCH (08:05)
[2017-01-23] MEDS: metFORMIN HCL 500 MG TAB PO SCH (08:07)
[2017-01-23] MEDS: FAMOTIDINE 20 MG TAB PO SCH (08:08)
[2017-01-23] MEDS: ALLOPURINOL 300 MG TAB PO SCH (08:08)
[2017-01-23] MEDS: GABAPENTIN 300 MG CAP PO SCH (08:08)
[2017-01-23] MEDS: PANTOPRAZOLE SODIUM 40 MG TAB PO SCH (08:09)
[2017-01-23] MEDS: PIOGLITAZONE HCL 15 MG TAB PO SCH (08:09)
[2017-01-23] MEDS: LOSARTAN POTASSIUM 50 MG TAB PO SCH (08:13)
[2017-01-23 08:37] VITALS: O2SAT 94
[2017-01-23] MEDS ORDERED: ENOXAPARIN 40 MG/0.4 ML SYR SC SCH (09:00)
--- NOTE | 2017-01-23 09:51 | SOAPPROG ---
SOAP Progress Note Assessment/Plan: Assessment: 57 yo male POD #2 s/p L4-S1 fusion post op xrays show well positioned hardware Pain well controlled Plan: DC KURT DC home D/W Dr. Wilson 01/23/17 16:16 Subjective: awake, comfortable. Receiving a Nebulizer treatment currently with RT. Denies pain weakness or tingling Objective: Vital Signs Temp Pulse Resp BP Pulse Ox 37.1 C 103 H 18 118/70 94 01/23/17 04:00 01/23/17 08:31 01/23/17 08:31 01/23/17 08:13 01/23/17 08:31 01/22/17 01/23/17 01/24/17 05:59 05:59 05:59 Intake Total 4220 2070 500 Output Total 1755 2990 485 Balance 2465 -920 15 KURT: 85 ml Neuro: ARREOLA, Sens +Lt ambulatory Post op xrays show stable hardware L4-S1 ICD10 Worksheet Patient Problems: Problems Problem Status Onset COPD - Acute exacerbation of chronic obstructive airways disease Active Pulmonary embolism Active COPD exacerbation Acute Diarrhea Acute Dyspnea Acute Hematemesis Acute Upper respiratory infection Acute Vomiting Acute
[2017-01-23] MEDS: SENNOSIDES/DOCUSATE SODIUM TAB PO SCH (10:13)
[2017-01-23 11:43] VITALS: BP 109/71; PULSE 105; RESP 17
--- NOTE | 2017-01-25 17:07 | ASMTCMCOM ---
CM Note CM Note Notes: Today PT rec home. Pt medically stable for d/c. No CM d/c needs identified. Date Signed: 01/23/2017 04:13 PM Electronically Signed By:Samina Romero
== END 2017-01-23 17:05 | disposition home or self-care (01) | DRG 460 ==
LOC: F3N 11:48
PROVIDERS: ADMIT Neurological Surgery; ATTEND Neurological Surgery
PROC: 00NY0ZZ Release Lumbar Spinal Cord, Open Approach (ICD-10-PCS; principal; 2017-01-21 14:00)
PROC: 0SG30AJ Fusion of Lumbosacral Joint with Interbody Fusion Device, Posterior Approach, Anterior Column, Open Approach (ICD-10-PCS; principal; 2017-01-21 14:00)
PROC: 0SG00AJ Fusion of Lumbar Vertebral Joint with Interbody Fusion Device, Posterior Approach, Anterior Column, Open Approach (ICD-10-PCS; principal; 2017-01-21 14:00)
PROC: 01NB0ZZ Release Lumbar Nerve, Open Approach (ICD-10-PCS; principal; 2017-01-21 14:00)
PROC: 4A1004G Monitoring of Central Nervous Electrical Activity, Intraoperative, Open Approach (ICD-10-PCS; principal; 2017-01-21 14:00)
DX: M43.16 Spondylolisthesis, lumbar region (principal); M48.07 Spinal stenosis, lumbosacral region; M54.17 Radiculopathy, lumbosacral region; I10 Essential (primary) hypertension; J44.9 Chronic obstructive pulmonary disease, unspecified; I25.10 Atherosclerotic heart disease of native coronary artery without angina pectoris; E11.9 Type 2 diabetes mellitus without complications; Z86.711 Personal history of pulmonary embolism; Z85.46 Personal history of malignant neoplasm of prostate; Z99.81 Dependence on supplemental oxygen; Z79.01 Long term (current) use of anticoagulants; Z79.84 Long term (current) use of oral hypoglycemic drugs
CPT/HCPCS: 97116-GP; 97161-GP; 97165-GO; 97535-GO; C1713; J0171; J0330; J0690; J1100; J1170; J1650; J2250; J2405; J2704; J3010

== ENCOUNTER → 2017-05-04 | Outpatient (CLI) | payer MEDICAID | LOC: FIMAGING 13:14 | PROVIDERS: ATTEND Neurological Surgery | DX: Z98.1 Arthrodesis status (principal) ==

== ENCOUNTER 2017-06-08 08:08 | Inpatient (IN) | payer MEDICAID ==
--- NOTE | 2017-06-08 08:19 | CPEKG ---
Heart Rate: 114 RR Interval: 526 P-R Interval: 148 QRSD Interval: 90 QT Interval: 348 QTC Interval: 480 P [place]: 44 QRS [place]: 75 T Wave [place]: -82 EKG Severity - BORDERLINE ECG - EKG Impression: SINUS TACHYCARDIA EKG Impression: BORDERLINE T ABNORMALITIES, INFERIOR LEADS EKG Impression: BORDERLINE PROLONGED QT INTERVAL Electronically Signed By: Reno Mesa 08-Jun-2017 15:23:38
[2017-06-08 08:31] LABS: PLATELET COUNT 199 10^3/uL (150-400)
--- NOTE | 2017-06-08 08:48 | EDPHY ---
H & P Time Seen by Provider: 06/08/17 08:47 HPI/ROS: Chief complaint. Coughing up blood HPI. 57-year-old male here by EMS with the above complaint. Patient tells me woke up 430 this morning with vomiting and some choking. He is then coughed up bloody streaks since then. He was fine yesterday. He was shaking this morning. He checked is oxygen and heart rate and found his O2 saturation 79% on room air and heart rate 140. He has a history of pulmonary emboli x5 but is not on blood thinners currently. He does have left anterior chest pain that is worse with deep breathing and is described as sharp. No abdominal pain or vomiting or diarrhea ROS Constitutional. Fever Eyes. no problems with vision ENT. no sore throat, no nasal drainage Cardiovascular. Left anterior chest pain Respiratory. Shortness of breath; cough productive bloody sputum Abdominal. no abdominal pain, no nausea/vomiting, no diarrhea . no problems urinating MS. no calf pain/swelling, no neck/back pain, no joint pain Skin. no rash Lymph. no swollen glands Neuro. no headache, no dizziness, no difficulty walking or with speech Past Medical/Surgical History: Chronic pain, pulmonary embolus, asthma/COPD, diabetes, lung surgery, kidney stones, orthopedic injuries, hypertension Social History: Single, nonsmoker, no Smoking Status: Never smoked Physical Exam: General Appearance: Alert well-developed male moderate distress vital signs show a temp 38.2degrees, heart rate 119, O2 saturation room air 81% Eyes: Pupils equal and round no pallor or injection. ENT, Mouth: Mucous membranes are moist. Respiratory: No retractions. Mild inspiratory expiratory rhonchi Cardiovascular: Regular rate and rhythm with tachycardia Gastrointestinal: Abdomen is soft and nontender, no masses, bowel sounds normal. Neurological: Awake and alert, sensory and motor exams grossly normal. Skin: Warm and dry, no rashes. Musculoskeletal: Neck is supple nontender. Extremities symmetrical, full range of motion. Psychiatric: Patient is oriented X 3, there is no agitation. Constitutional: Initial Vital Signs Temperature (C) 38.2 C 06/08/17 08:10 Heart Rate 119 H 06/08/17 08:10 Respiratory Rate 16 06/08/17 08:10 Blood Pressure 100/69 06/08/17 08:10 O2 Sat (%) 81 L 06/08/17 08:10 O2 Delivery Mode Nasal Cannula O2 (L/minute) 3 Allergies/Adverse Reactions: ibuprofen Allergy (Severe, Verified 06/08/17 08:33) Anaphylaxis montelukast [From Singulair] Allergy (Severe, Verified 06/08/17 08:33) Anaphylaxis Home Medications: Medication Instructions Recorded Allopurinol 300 mg PO BID@08,01/20/17 Atorvastatin Calcium [Lipitor 40 40 mg PO DAILY@01/20/17 mg (*)] Fluticasone/Salmeterol [Advair Hfa 2 puffs PO BID@,01/20/17 115-21 Mcg Inhaler] Ipratropium/Albuterol [Duoneb (*)] 3 ml IH BID@,01/20/17 Losartan Potassium [Cozaar 50 mg 50 mg PO DAILY@01/20/17 (*)] Pantoprazole Sodium [Protonix 40mg 40 mg PO DAILY@01/20/17 (*)] Pioglitazone HCl 45 mg PO DAILY@01/20/17 Albuterol [Ventolin Hfa Inhaler] 1 - 2 puffs IH Q4H PRN mdi 01/23/17 Tiotropium Inhaler [Spiriva 18 mcg IH DAILY mdi 01/23/17 Handihaler] metFORMIN HCL [Glucophage 500 mg 1,000 mg PO BIDMEAL tab 01/23/17 (*)] oxyCODONE HCL [Oxycontin] 40 mg PO BID@, #60 tab.er.12h 01/23/17 oxyCODONE IR [Oxycodone Ir (*)] 20 mg PO Q4H PRN #90 tab 01/23/17 Cholecalciferol Vit D3 [Vitamin D3 1,000 units PO DAILY 06/08/17 (*)] Cyanocobalamin [Vitamin B12 (*)] 1,000 mcg PO DAILY 06/08/17 Medical Decision Making - Diagnostics EKG Interpretation: EKG interpreted by me shows sinus tachycardia. Normal interval and axis. QRS is normal there is no significant ST elevation or depression. No arrhythmia. The rate is 114 Imaging Results: Imaging Impressions Chest X-Ray 06/08/17 08:25 Impression: Right upper lobe pneumonia. Recommend follow-up chest x-ray in 6-8 weeks to verify resolution. Chest/Thorax CTA 06/08/17 08:56 Impression: 1. There is no CT evidence of pulmonary artery thromboemboli. 2. Patchy pneumonia seen in the posterior right upper lobe, with some minimal pneumonitis in the superior segment of the right lower lobe. Clinical correlation and follow-up to assure resolution is recommended. This can be followed with chest radiography in 4-6 weeks. 3. Intraluminal air in the thoracic esophagus raises the possibility of reflux. If of further concern, an esophagram could be considered when clinically feasible. 4. LAD and left circumflex coronary artery atherosclerotic calcification. Findings were discussed with SANCHEZ MEDRANO MD at 9:34 AM, on 06/08/2017. On CT patient has a he right upper lobe pneumonia. Possibly aspiration Procedures: IV normal saline. Septic workup. ED Course/Re-evaluation: Severe sepsis was declared. Patient had already been started on his 30 milliliter/kilogram fluid bolus. Patient had fairly significant hypertension with systolic down to 80. However he responded nicely to the IV fluid bolus with pressures coming up to 100 systolic. He was given Rocephin, azithromycin, clindamycin in the emergency department for possible community acquired pneumonia as well as possible aspiration pneumonia. Serial evaluations patient is improving after he was hypotensive episode. He and I discussed imaging and lab results. We discussed treatment plan including recommendation for admission. He expresses standing and agreement I consulted and discussed the case with Dr. petty, hospitalist who agrees to the admission Differential Diagnosis: I considered the causative pneumonia including aspiration as well as community- acquired. Patient has severe sepsis with manifested by me hypertension and elevated the lactate. He did have evidence of septic shock but responded nicely to fluids. Critical Care Time: Critical care time exclusive procedures 40 min - Data Points Laboratory Results: Laboratory Results 06/08/17 08:22 06/08/17 08:22 06/08/17 06/08/17 06/08/17 09:40 09:22 08:22 WBC RBC Hgb Hct MCV MCH MCHC RDW Plt Count MPV Neut % (Auto) Lymph % (Auto) [place] % (Auto) Eos % (Auto) Baso % (Auto) Nucleat RBC Rel Count Absolute Neuts (auto) Absolute Lymphs (auto) Absolute Monos (auto) Absolute Eos (auto) Absolute Basos (auto) Absolute Nucleated RBC Immature Gran % Immature Gran # PT INR APTT D-Dimer VBG Lactic Acid 2.2 mmol/L H mmol/L (0.7-2.1) Sodium Potassium Chloride Carbon Dioxide Anion Gap BUN Creatinine Estimated GFR Glucose Calcium Total Bilirubin 0.8 mg/dL mg/dL (0.1-1.4) Troponin I Nasal Influenza A PCR NEGATIVE FOR FLU A (NEGATIVE) Nasal Influenza B PCR NEGATIVE FOR FLU B (NEGATIVE) 06/08/17 06/08/17 06/08/17 08:22 08:22 08:22 WBC 10.73 10^3/uL H 10^3/uL (3.80-9.50) RBC 4.41 10^6/uL 10^6/uL (4.40-6.38) Hgb 13.2 g/dL L g/dL (13.7-17.5) Hct 38.7 % L % (40.0-51.0) MCV 87.8 fL fL (81.5-99.8) MCH 29.9 pg pg (27.9-34.1) MCHC 34.1 g/dL g/dL (32.4-36.7) RDW 15.9 % H % (11.5-15.2) Plt Count 199 10^3/uL 10^3/uL (150-400) MPV 10.5 fL fL (8.7-11.7) Neut % (Auto) 80.8 % H % (39.3-74.2) Lymph % (Auto) 10.1 % L % (15.0-45.0) [place] % (Auto) 7.4 % % (4.5-13.0) Eos % (Auto) 1.1 % % (0.6-7.6) Baso % (Auto) 0.2 % L % (0.3-1.7) Nucleat RBC Rel Count 0.0 % % (0.0-0.2) Absolute Neuts (auto) 8.68 10^3/uL H 10^3/uL (1.70-6.50) Absolute Lymphs (auto) 1.08 10^3/uL 10^3/uL (1.00-3.00) Absolute Monos (auto) 0.79 10^3/uL 10^3/uL (0.30-0.80) Absolute Eos (auto) 0.12 10^3/uL 10^3/uL (0.03-0.40) Absolute Basos (auto) 0.02 10^3/uL 10^3/uL (0.02-0.10) Absolute Nucleated RBC 0.00 10^3/uL 10^3/uL (0-0.01) Immature Gran % 0.4 % % (0.0-1.1) Immature Gran # 0.04 10^3/uL 10^3/uL (0.00-0.10) PT 13.3 SEC SEC (12.0-15.0) INR 0.99 (0.83-1.16) APTT 24.4 SEC SEC (23.0-38.0) D-Dimer 0.56 ug/mLFEU H ug/mLFEU (0.00-0.50) VBG Lactic Acid Sodium 144 mEq/L mEq/L (135-145) Potassium 3.4 mEq/L L mEq/L (3.5-5.2) Chloride 107 mEq/L mEq/L (97-110) Carbon Dioxide 23 mEq/l mEq/l (22-31) Anion Gap 14 mEq/L mEq/L (8-16) BUN 15 mg/dL mg/dL (7-23) Creatinine 0.7 mg/dL mg/dL (0.7-1.3) Estimated GFR > 60 Glucose 111 mg/dL H mg/dL (70-100) Calcium 9.1 mg/dL mg/dL (8.5-10.4) Total Bilirubin Troponin I < 0.012 ng/mL ng/mL (0.000-0.034) Nasal Influenza A PCR Nasal Influenza B PCR Medications Given: Guaifenesin (Mucinex) 600 mg PO BID MARCELA Stop: 12/05/17 12:14 Last Admin: 06/08/17 14:09 Dose: 600 mg Potassium Chloride/Sodium Chloride (Ns W/ 20 Kcl/L) 1,000 mls @ 150 mls/hr IV CONT MARCELA Stop: 12/05/17 11:14 Last Admin: 06/08/17 14:38 Dose: 1,000 mls Magnesium Hydroxide (Milk Of Magnesia) 30 ml PO DAILY PRN; Protocol PRN Reason: Constipation Stop: 12/05/17 12:11 Last Admin: 06/08/17 15:02 Dose: 30 ml Oxycodone HCl (Oxycodone Ir) 20 mg PO Q4H PRN PRN Reason: Pain, Severe Stop: 06/18/17 12:10 Last Admin: 06/08/17 14:14 Dose: 10 mg Discontinued Medications Acetaminophen (Tylenol) 1,000 mg PO EDNOW ONE Stop: 06/08/17 08:58 Last Admin: 06/08/17 09:01 Dose: 1,000 mg Sodium Chloride (Ns) 3,000 mls @ 6,000 mls/hr 30 ml/kg infuse over 30 min ( 3000 ml) IV EDNOW ONE PRN Reason: Protocol Stop: 06/08/17 09:24 Last Admin: 06/08/17 09:01 Dose: 3,000 mls Azithromycin 500 mg/ Dextrose 255 mls @ 255 mls/hr IV EDNOW ONE PRN Reason: Protocol Stop: 06/08/17 10:54 Last Admin: 06/08/17 10:54 Dose: 255 mls Ceftriaxone Sodium 1 gm/ (Sterile Water) 10 mls @ 150 mls/hr IV EDNOW ONE PRN Reason: Protocol Stop: 06/08/17 09:57 Last Admin: 06/08/17 11:20 Dose: 10 mls Clindamycin Phosphate/Dextrose (Cleocin 600 Mg (Premix)) 50 mls @ 100 mls/hr IV EDNOW ONE PRN Reason: Protocol Stop: 06/08/17 10:25 Last Admin: 06/08/17 10:08 Dose: 50 mls Sodium Chloride (Ns) 1,000 mls @ 0 mls/hr IV ONCE ONE PRN Reason: Wide Open Stop: 06/08/17 11:05 Last Admin: 06/08/17 11:32 Dose: 1,000 mls Departure - Departure Disposition: [facility] Clinical Impression: Sepsis Qualifiers: Sepsis type: sepsis due to unspecified organism Qualified Code(s): A41.9 - Sepsis, unspecified organism Pneumonia Qualifiers: Pneumonia type: due to unspecified organism Condition: Fair
[2017-06-08] MEDS ORDERED: ACETAMINOPHEN 500 MG TAB ONE (08:50)
[2017-06-08] MEDS ORDERED: NS 3,000 ML IV ONE (08:55)
[2017-06-08] MEDS ORDERED: ACETAMINOPHEN 500 MG TAB PO ONE (08:57)
[2017-06-08] MEDS ORDERED: IOPAMIDOL (ISOVUE 370) 100 ML BTL IV ONE (09:01)
[2017-06-08 09:38] LABS: INR 0.99 (0.83-1.16); PROTIME(PATIENT) 13.3 SEC (12.0-15.0)
[2017-06-08] MEDS ORDERED: cefTRIAXone 1 GM in STERILE WATER INJ 10 ML IV ONE (09:54)
[2017-06-08] MEDS ORDERED: AZITHROMYCIN IV 500 MG in D5W 250 ML IV ONE (09:55)
[2017-06-08] MEDS ORDERED: CLINDAMYCIN 600 MG/DEXTROSE 50 ML IV ONE (09:56)
[2017-06-08] MEDS ORDERED: NS 1,000 ML IV ONE (11:04)
[2017-06-08] MEDS ORDERED: BENZONATATE 100 MG CAP PO PRN (12:10)
[2017-06-08] MEDS ORDERED: guaiFENesin/CODEINE PHOS 10 ML UDCUP PO PRN (12:10)
[2017-06-08] MEDS ORDERED: ALBUTEROL 60 PUFFS/8 GM MDI IH PRN (12:11)
[2017-06-08] MEDS ORDERED: D50W 25 GM/50 ML SYR IVP PRN (12:12)
[2017-06-08] MEDS ORDERED: LACTULOSE 20 GM/30 ML UDCUP PO PRN (12:12)
[2017-06-08] MEDS ORDERED: BISACODYL 10 MG SUPP PR PRN (12:12)
[2017-06-08] MEDS ORDERED: POLYETHYLENE GLYCOL 3350 17 GM PKT PO PRN (12:12)
--- NOTE | 2017-06-08 12:41 | PDGENHP ---
History and Physical - Chief Complaint Acute hemoptysis - History of Present Illness Primary care provider: Dr. Andrea Last Primary neurosurgeon: Dr. Chino Wilson HPI: 57-year-old male presenting with acute hemoptysis characterized as streaks of blood in sputum with associated chest pain characterized as sharp, exacerbated with inspiration and coughing, associated chills, vomiting and choking, with onset of symptoms at 4:30 a.m. on the day of presentation. Patient reports that for several days prior to his presentation, he had been otherwise feeling generally fatigued, but had not been experiencing any pulmonary or chest symptoms. The patient reports that he sought immediate medical chin and has not taken anything to alleviate his cough at this time. He did check his vital signs at home and his SpO2 was 79% on room air, heart rate was 140. Patient has not taken his home opiate medications any is beginning to feel restless. He denies any over sedation from opiates. History Information - Allergies/Home Medication List Allergies/Adverse Reactions: ibuprofen Allergy (Severe, Verified 06/08/17 08:33) Anaphylaxis montelukast [From Singulair] Allergy (Severe, Verified 06/08/17 08:33) Anaphylaxis Home Medications: Allopurinol 300 mg PO BID@,01/20/17 [Last Taken 06/07/17] Atorvastatin Calcium [Lipitor 40 mg (*)] 40 mg PO DAILY@01/20/17 [Last Taken 06/07/17] Fluticasone/Salmeterol [Advair Hfa 115-21 Mcg Inhaler] 2 puffs PO BID@10/01 [Last Taken 06/08/17] Ipratropium/Albuterol [Duoneb (*)] 3 ml IH BID@01/20/17 [Last Taken ] Losartan Potassium [Cozaar 50 mg (*)] 50 mg PO DAILY@01/20/17 [Last Taken ] Pantoprazole Sodium [Protonix 40mg (*)] 40 mg PO DAILY@01/20/17 [Last Taken 06/07/17] Pioglitazone HCl 45 mg PO DAILY@01/20/17 [Last Taken 06/07/17] Cholecalciferol Vit D3 [Vitamin D3 (*)] 1,000 units PO DAILY 06/08/17 [Last Taken Unknown] Cyanocobalamin [Vitamin B12 (*)] 1,000 mcg PO DAILY 06/08/17 [Last Taken Unknown ] I have personally reviewed and updated: family history, medical history, social history, surgical history - Past Medical History asthma, 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), diabetes type 2, pulmonary embolism (2012, provoked, s/p 6 months of systemic anticoagulation) Additional medical history: multiple skeletal trauma, chronic pain syndrome with continuous opiate dependency - Surgical History Additional surgical history: L4-S1 surgery in January 2017 - Family History Additional family history: Father with deep venous thrombosis, severe chemical burn, prostate cancer, mother with coronary artery disease in her 80s - Social History Smoking Status: Never smoked Alcohol Use: None Drug Use: None Additional social history: Patient is retired, lives his , 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 Review of Systems Review of Systems: ROS: 10pt was reviewed & negative except for what was stated in HPI & below Constitutional: Reports: chills, fever, malaise, weakness Cardiac: Reports: chest pain Respiratory: Reports: cough, shortness of breath, other (Hemoptysis) Physical Exam Physical Exam: Temp Pulse Resp BP Pulse Ox 36.9 C 97 16 106/64 95 06/08/17 10:00 06/08/17 12:17 06/08/17 12:17 06/08/17 12:17 06/08/17 12:17 O2 (L/minute) 3 Constitutional: uncomfortable, No not in pain (Mild) Eyes: PERRL, anicteric sclera, EOMI Ears, Nose, Mouth, Throat: moist mucous membranes, hearing normal, ears appear normal, no oral mucosal ulcers Cardiovascular: tachycardia, No systolic murmur, No irregularly irregular, No edema Respiratory: reduced air movement (Volitional reduction in inspiratory effort), rhonchi (Right lateral segment), No expiratory wheeze, No bronchial breath sounds Gastrointestinal: normoactive bowel sounds, soft, non-tender abdomen, no palpable masses, distension (Mild) Skin: warm, normal color, no rashes or abrasions, no fluctuance, no induration, No mottled Neurologic: AAOx3, sensation intact bilaterally, weakness (4/5 motor strength left lower extremity, reportedly chronic) Psychiatric: interacting appropriately, not anxious, not encephalopathic, thought process linear Lab Data & Imaging Review 06/08/17 08:22 06/08/17 08:22 WBC 10.73 10^3/uL (3.80-9.50) H 06/08/17 08:22 RBC 4.41 10^6/uL (4.40-6.38) 06/08/17 08:22 Hgb 13.2 g/dL (13.7-17.5) L 06/08/17 08:22 Hct 38.7 % (40.0-51.0) L 06/08/17 08:22 MCV 87.8 fL (81.5-99.8) 06/08/17 08:22 MCH 29.9 pg (27.9-34.1) 06/08/17 08: MCHC 34.1 g/dL (32.4-36.7) 06/08/17 08:22 RDW 15.9 % (11.5-15.2) H 06/08/17 08:22 Plt Count 199 10^3/uL (150-400) 06/08/17 08:22 MPV 10.5 fL (8.7-11.7) 06/08/17 08:22 Neut % (Auto) 80.8 % (39.3-74.2) H 06/08/17 08:22 Lymph % (Auto) 10.1 % (15.0-45.0) L 06/08/17 08:22 [place] % (Auto) 7.4 % (4.5-13.0) 06/08/17 08:22 Eos % (Auto) 1.1 % (0.6-7.6) 06/08/17 08:22 Baso % (Auto) 0.2 % (0.3-1.7) L 06/08/17 08:22 Nucleat RBC Rel Count 0.0 % (0.0-0.2) 06/08/17 08:22 Absolute Neuts (auto) 8.68 10^3/uL (1.70-6.50) H 06/08/17 08:22 Absolute Lymphs (auto) 1.08 10^3/uL (1.00-3.00) 06/08/17 08:22 Absolute Monos (auto) 0.79 10^3/uL (0.30-0.80) 06/08/17 08:22 Absolute Eos (auto) 0.12 10^3/uL (0.03-0.40) 06/08/17 08:22 Absolute Basos (auto) 0.02 10^3/uL (0.02-0.10) 06/08/17 08:22 Absolute Nucleated RBC 0.00 10^3/uL (0-0.01) 06/08/17 08: Immature Gran % 0.4 % (0.0-1.1) 06/08/17 08: Immature Gran # 0.04 10^3/uL (0.00-0.10) 06/08/17 08: PT 13.3 SEC (12.0-15.0) 06/08/17 08:22 INR 0.99 (0.83-1.16) 06/08/17 08: APTT 24.4 SEC (23.0-38.0) 06/08/17 08:22 D-Dimer 0.56 ug/mLFEU (0.00-0.50) H 06/08/17 08:22 VBG Lactic Acid 1.4 mmol/L (0.7-2.1) 06/08/17 10:54 Sodium 144 mEq/L (135-145) 06/08/17 08:22 Potassium 3.4 mEq/L (3.5-5.2) L 06/08/17 08: Chloride 107 mEq/L (97-110) 06/08/17 08: Carbon Dioxide 23 mEq/l (22-31) 06/08/17 08:22 Anion Gap 14 mEq/L (8-16) 06/08/17 08:22 BUN 15 mg/dL (7-23) 06/08/17 08:22 Creatinine 0.7 mg/dL (0.7-1.3) 06/08/17 08:22 Estimated GFR > 60 06/08/17 08:22 Glucose 111 mg/dL (70-100) H 06/08/17 08:22 Calcium 9.1 mg/dL (8.5-10.4) 06/08/17 08:22 Total Bilirubin 0.8 mg/dL (0.1-1.4) 06/08/17 08:22 Troponin I < 0.012 ng/mL (0.000-0.034) 06/08/17 08:22 Nasal Influenza A PCR NEGATIVE FOR FLU A (NEGATIVE) 06/08/17 09:40 Nasal Influenza B PCR NEGATIVE FOR FLU B (NEGATIVE) 06/08/17 09:40 Visualized and Interpreted Chest x-ray results: Yes Chest X-Ray results: other (Right upper lobe infiltrate) Visualized and Interpreted EKG results: Yes EKG Interpretation: Positive for: other (Sinus tachycardia, ST depression in lead 2) Assessment & Plan Assessment: 57-year-old male presenting with severe sepsis in the setting of pneumonia Plan: 1. Severe sepsis. Present on admission, evidenced by autonomic dysregulation and end-organ failure in the setting of infection with hypotension, respiratory failure, lactic acidosis, tachycardia, fever, tachypnea, meeting all sepsis-2 criteria -severe sepsis protocol an emergency depart, discussed with Dr. [place], we agree that the patient will continue receiving IV fluids, will hold on central line placement -empiric IV antibiotics -appropriate for step-down unit 2. Right upper lobe pneumonia. Present on admission, unclear whether there is an element of aspiration in the setting of chronic opiate use and reports of vomiting and choking overnight precipitating this presentation -chest CT demonstrating some air in the esophagus, possible evidence of reflux and aspiration -get MANAGER PROFESSIONAL DEVELOPMENT eval, VF SS if needed -day 1 ceftriaxone and azithromycin -continuous pulse ox monitor -get urine strep, urine Legionella, sputum culture, blood cultures -monitor white blood cell count 3. Acute hypoxic respiratory failure. Evidenced by SpO2 of 79% on room air on presentation, requiring supplemental oxygen, symptomatic shortness of breath, secondary to pneumonia outlined above -monitor in step-down unit -monitor on continuous pulse ox -incentive spirometer 4. COPD. Chronic, continue home medications no evidence of acute exacerbation 5. Chronic pain with continuous opiate dependency. Continue home medications, bowel regimen -reviewed outside records including discharge summary doctor Dr. Keenan from 06/24 reports the patient was experiencing constipation from his opiate dependency at that time, patient reports he has not moved his bowels in 4 days 6. Diabetes mellitus type 2. Hold metformin, insulin sliding scale 7. Hypertension. Hold HERNAN-inhibitor, continue monitor Diet. Regular Prophylaxis. High risk patient, Lovenox 40, hold if further hemoptysis and placed on SCDs Code. Full, MD POA Disposition. Anticipated discharge uncertain, anticipated length stay greater than 48 hr for reasonable medical necessity including severe sepsis with high risk comorbidities.
[2017-06-08] MEDS: oxyCODONE IR 5 MG TAB PO PRN ×3 (14:09→21:01)
[2017-06-08] MEDS: guaiFENesin 600 MG TAB.ER PO SCH ×2 (14:09→21:00)
[2017-06-08] MEDS: NS W/ 20 KCl/L 1,000 ML IV SCH ×2 (14:38→23:00)
[2017-06-08] MEDS: MAGNESIUM HYDROXIDE 30 ML UDCUP PO PRN (15:02)
--- NOTE | 2017-06-08 15:46 | PDMN ---
Medical Necessity Medical necessity: est los>2mn for severe sepsis w/autonomic dysregulation, and end organ failure, in setting of RUL PNA w/hypotension, acute hypoxic resp failure, lactic acidosis, tachycardia, fever, and tachypnea; admit to ICU/SDU for IV abx, sepsis protocol, r/o aspiration w/ACTIVITIES DIRECTOR eval; comorbid COPD, DM, HTN, and chronic pain w/opioid dependency; per order and H&P 06/08/17. 06/08/2017 15: 31 (MT) Shaneka Maier RN:
[2017-06-08] MEDS ORDERED: POTASSIUM CL 20 MEQ TAB PO ONE (16:20)
[2017-06-08] MEDS: INSULIN REGULAR HUMAN 100 UNIT/ML UNIT SC SCH ×2 (18:15→22:17)
[2017-06-08] MEDS: ACETAMINOPHEN 325 MG TAB PO PRN (19:13)
[2017-06-08] MEDS: ALLOPURINOL 300 MG TAB PO SCH (21:00)
[2017-06-08] MEDS: SENNOSIDES/DOCUSATE SODIUM TAB PO SCH (21:00)
[2017-06-08] MEDS: ATORVASTATIN CALCIUM 40 MG TAB PO SCH (21:01)
[2017-06-08] MEDS: IPRATROPIUM/ALBUTEROL 3 ML DEYVIAL IH SCH (22:06)
[2017-06-08] MEDS: Fluticasone/Salmeterol [Advair Hfa 115-21 Mcg Inhaler] 2 PUFFS PO SCH (22:17)
[2017-06-09] MEDS: NS W/ 20 KCl/L 1,000 ML IV SCH (05:16)
[2017-06-09 05:56] LABS: PLATELET COUNT 168 10^3/uL (150-400)
[2017-06-09] MEDS: INSULIN REGULAR HUMAN 100 UNIT/ML UNIT SC SCH ×4 (08:00→21:36)
[2017-06-09] MEDS: PANTOPRAZOLE SODIUM 40 MG TAB PO SCH (08:00)
[2017-06-09] MEDS: PIOGLITAZONE HCL 15 MG TAB PO SCH (08:00)
[2017-06-09] MEDS: SENNOSIDES/DOCUSATE SODIUM TAB PO SCH ×2 (09:00→20:57)
[2017-06-09] MEDS: ENOXAPARIN 40 MG/0.4 ML SYR SC SCH (09:00)
[2017-06-09] MEDS: CHOLECALCIFEROL VIT D3 1,000 UNITS TAB PO SCH (09:00)
[2017-06-09] MEDS: CYANO/VITAMIN B12 1000 MCG TAB PO SCH (09:00)
[2017-06-09] MEDS: guaiFENesin 600 MG TAB.ER PO SCH ×2 (09:00→20:57)
[2017-06-09] MEDS: cefTRIAXone 1 GM in STERILE WATER INJ 10 ML IV SCH (09:00)
[2017-06-09] MEDS: AZITHROMYCIN IV 500 MG in D5W 250 ML IV SCH (09:00)
[2017-06-09] MEDS: IPRATROPIUM/ALBUTEROL 3 ML DEYVIAL IH SCH ×2 (10:09→19:59)
[2017-06-09] MEDS: TIOTROPIUM INHALER 18 MCG/DOSE 5 DOSE/MDI IH SCH (10:09)
[2017-06-09] MEDS: ALLOPURINOL 300 MG TAB PO SCH ×2 (10:26→20:57)
[2017-06-09] MEDS: Fluticasone/Salmeterol [Advair Hfa 115-21 Mcg Inhaler] 2 PUFFS PO SCH ×2 (10:26→22:51)
[2017-06-09] MEDS: oxyCODONE IR 5 MG TAB PO PRN ×3 (14:19→22:17)
--- NOTE | 2017-06-09 17:23 | ASMTCMCOM ---
CM Note CM Note Notes: 57 year old male admitted for CP, Acute hemoptysis, Severe sepsis, Hypoxic resp failure, COPD, DM-2, HTN. Has a hx of chronic pain and narc dependency. CM to follow for discharge needs. Date Signed: 06/09/2017 05:23 PM Electronically Signed By:Akua Gee LCSW
--- NOTE | 2017-06-09 18:02 | HOSPPROG ---
Hospitalist Progress Note Assessment/Plan: Assessment: 57-year-old male presenting with severe sepsis in the setting of pneumonia Plan: 1. Severe sepsis. Present on admission, evidenced by autonomic dysregulation and end-organ failure in the setting of infection with hypotension, respiratory failure, lactic acidosis, tachycardia, fever, tachypnea, meeting all sepsis-2 criteria -resolved 2. Right upper lobe pneumonia. Present on admission, day 2 ceftriaxone and azithromycin -pending urine strep, urine Legionella, sputum culture, blood cultures -monitor white blood cell count, rising today -PRN pain mgmt for right side chest pain 3. Acute hypoxic respiratory failure. Evidenced by SpO2 of 79% on home 2LPM NC on presentation, requiring supplemental oxygen and uptitration to 5LPM for stabilization, symptomatic shortness of breath, secondary to pneumonia outlined above -cont o2 -incentive spirometer 4. COPD. Chronic, continue home medications no evidence of acute exacerbation 5. Chronic pain with continuous opiate dependency. Continue home medications, bowel regimen -cont home Rx 6. Diabetes mellitus type 2. Restart metformin, insulin sliding scale 7. Hypertension. Restart HERNAN-inhibitor tomorrow, continue monitor Diet. Regular Prophylaxis. High risk patient, Lovenox 40 Code. Full, MD WOLFF Disposition. Anticipated discharge uncertain, transfer to med surg and monitor given rising WBC. Subjective: patient reports BMs this AM, right side chest pain Objective: Vital Signs Temp Pulse Resp BP Pulse Ox 37.1 C 82 15 128/72 H 97 06/09/17 16:54 06/09/17 16:54 06/09/17 16:54 06/09/17 16:54 06/09/17 16:54 Microbiology 06/09/17 09:30 - Final Sputum, Expectorated Laboratory Results 06/09/17 05:43 06/09/17 05:43 06/08/17 06/09/17 06/10/17 05:59 05:59 05:59 Intake Total 5721 450 Output Total 800 250 Balance 4921 200 PT 13.3 SEC (12.0-15.0) 06/08/17 08:22 INR 0.99 (0.83-1.16) 06/08/17 08:22 - Physical Exam Constitutional: no apparent distress, appears nourished, not in pain, No obese Cardiovascular: regular rate and rhythym, no murmur, rub, or gallop, No tachycardia, No edema Respiratory: reduced air movement (on right), rhonchi (on insp R side), No expiratory wheeze, No bronchial breath sounds, No respiratory distress Gastrointestinal: normoactive bowel sounds, soft, non-tender abdomen, no palpable masses, No distension Neurologic: AAOx3, sensation intact bilaterally, No facial droop Psychiatric: interacting appropriately, not anxious, not encephalopathic, thought process linear ICD10 Worksheet Patient Problems: Problems Problem Status Onset Pulmonary embolism Active COPD - Acute exacerbation of chronic obstructive airways disease Active Vomiting Acute Upper respiratory infection Acute Diarrhea Acute Dyspnea Acute COPD exacerbation Acute Hematemesis Acute Sepsis Acute Pneumonia Acute
[2017-06-09] MEDS: ATORVASTATIN CALCIUM 40 MG TAB PO SCH (20:57)
[2017-06-09] MEDS: ONDANSETRON DISINTEGRATING 4 MG TAB PO PRN (20:57)
[2017-06-10] MEDS: oxyCODONE IR 5 MG TAB PO PRN ×3 (04:10→22:21)
[2017-06-10 05:16] LABS: PLATELET COUNT 173 10^3/uL (150-400)
[2017-06-10] MEDS: INSULIN REGULAR HUMAN 100 UNIT/ML UNIT SC SCH ×4 (08:16→21:53)
[2017-06-10] MEDS: ACETAMINOPHEN 325 MG TAB PO PRN (08:38)
[2017-06-10] MEDS: ONDANSETRON DISINTEGRATING 4 MG TAB PO PRN ×2 (08:38→18:34)
[2017-06-10] MEDS: CHOLECALCIFEROL VIT D3 1,000 UNITS TAB PO SCH (08:58)
[2017-06-10] MEDS: MAGNESIUM HYDROXIDE 30 ML UDCUP PO PRN (08:58)
[2017-06-10] MEDS: CYANO/VITAMIN B12 1000 MCG TAB PO SCH (08:58)
[2017-06-10] MEDS: PANTOPRAZOLE SODIUM 40 MG TAB PO SCH (08:58)
[2017-06-10] MEDS: guaiFENesin 600 MG TAB.ER PO SCH ×2 (08:58→21:03)
[2017-06-10] MEDS: ALLOPURINOL 300 MG TAB PO SCH ×2 (08:58→21:03)
[2017-06-10] MEDS: LOSARTAN POTASSIUM 50 MG TAB PO SCH (08:58)
[2017-06-10] MEDS: SENNOSIDES/DOCUSATE SODIUM TAB PO SCH ×2 (08:58→21:04)
[2017-06-10] MEDS: cefTRIAXone 1 GM in STERILE WATER INJ 10 ML IV SCH (08:59)
[2017-06-10] MEDS: metFORMIN HCL 500 MG TAB PO SCH ×2 (08:59→18:32)
[2017-06-10] MEDS: AZITHROMYCIN IV 500 MG in D5W 250 ML IV SCH (08:59)
[2017-06-10] MEDS: ENOXAPARIN 40 MG/0.4 ML SYR SC SCH (09:08)
[2017-06-10] MEDS: TIOTROPIUM INHALER 18 MCG/DOSE 5 DOSE/MDI IH SCH (09:29)
[2017-06-10] MEDS: IPRATROPIUM/ALBUTEROL 3 ML DEYVIAL IH SCH ×2 (09:29→19:14)
[2017-06-10] MEDS: Fluticasone/Salmeterol [Advair Hfa 115-21 Mcg Inhaler] 2 PUFFS PO SCH ×2 (10:27→19:16)
[2017-06-10] MEDS: CEPACOL LOZENGE PO PRN ×3 (10:33→23:47)
[2017-06-10] MEDS: PIOGLITAZONE HCL 15 MG TAB PO SCH (10:33)
[2017-06-10] MEDS: ONDANSETRON 4 MG/2 ML VIAL IVP PRN ×2 (13:21→21:57)
--- NOTE | 2017-06-10 14:50 | ASMTCMCOM ---
CM Note CM Note Notes: Pt cleared by PT for home, anticipate will dc home w/support of when medically stable. CM available for any changes. DC Plan: Home Date Signed: 06/10/2017 02:49 PM Electronically Signed By:June Espinosa RN
--- NOTE | 2017-06-10 15:42 | HOSPPROG ---
Hospitalist Progress Note Assessment/Plan: Assessment: 57-year-old male presenting with severe sepsis in the setting of pneumonia Plan: 1. Severe sepsis. Present on admission, evidenced by autonomic dysregulation and end-organ failure in the setting of infection with hypotension, respiratory failure, lactic acidosis, tachycardia, fever, tachypnea, meeting all sepsis-2 criteria -resolved 2. Right upper lobe pneumonia. Present on admission, day 3 ceftriaxone and azithromycin -pending urine strep, urine Legionella, sputum culture, blood cultures -monitor white blood cell count -PRN pain mgmt for right side chest pain, productive cough, ongoing shortness of breath with activity 3. Acute hypoxic respiratory failure. Evidenced by SpO2 of 79% on home 2LPM NC on presentation, requiring supplemental oxygen and uptitration to 5LPM for stabilization, symptomatic shortness of breath, secondary to pneumonia outlined above -cont o2 -incentive spirometer 4. COPD. Chronic, continue home medications no evidence of acute exacerbation 5. Chronic pain with continuous opiate dependency. Continue home medications, bowel regimen -cont home Rx 6. Diabetes mellitus type 2. Restart metformin, insulin sliding scale 7. Hypertension. Restart HERNAN-inhibitor tomorrow, continue monitor Diet. Regular Prophylaxis. High risk patient, Lovenox 40 Code. Full, MD WOLFF Disposition. Anticipated discharge 06/11, PNA clinically unresolved w/ worsening cough today, exertional shortness of breath. Subjective: patient w/ more mucous production today, SOB w/ ambulation to bathroom Objective: Vital Signs Temp Pulse Resp BP Pulse Ox 36.8 C 74 16 106/66 94 06/10/17 15:13 06/10/17 15:13 06/10/17 15:13 06/10/17 15:13 06/10/17 15:13 Microbiology 06/09/17 09:30 - Final Sputum, Expectorated Laboratory Results 06/10/17 05:05 06/09/17 05:43 06/09/17 06/10/17 06/11/17 05:59 05:59 05:59 Intake Total 5721 1190 Output Total 800 250 Balance 4921 940 PT 13.3 SEC (12.0-15.0) 06/08/17 08:22 INR 0.99 (0.83-1.16) 06/08/17 08:22 - Physical Exam Constitutional: no apparent distress, not in pain, obese, uncomfortable Cardiovascular: regular rate and rhythym, no murmur, rub, or gallop, No edema Respiratory: rhonchi (R lateral/posterior chest on insp), No reduced air movement, No expiratory wheeze, No bronchial breath sounds, No respiratory distress Gastrointestinal: normoactive bowel sounds, soft, non-tender abdomen, no palpable masses, distension (mild) Neurologic: AAOx3, sensation intact bilaterally, No weakness Psychiatric: interacting appropriately, not anxious, not encephalopathic, thought process linear ICD10 Worksheet Patient Problems: Problems Problem Status Onset Pulmonary embolism Active COPD - Acute exacerbation of chronic obstructive airways disease Active Vomiting Acute Upper respiratory infection Acute Diarrhea Acute Dyspnea Acute COPD exacerbation Acute Hematemesis Acute Sepsis Acute Pneumonia Acute
[2017-06-10] MEDS: ATORVASTATIN CALCIUM 40 MG TAB PO SCH (21:03)
[2017-06-11] MEDS ORDERED: PROMETHAZINE HCL 25 MG/ML INJ IVP PRN (00:49)
[2017-06-11] MEDS: oxyCODONE IR 5 MG TAB PO PRN ×2 (02:24→06:24)
[2017-06-11 04:34] VITALS: RESP 16
[2017-06-11 05:40] LABS: PLATELET COUNT 216 10^3/uL (150-400)
[2017-06-11] MEDS: AZITHROMYCIN IV 500 MG in D5W 250 ML IV SCH (08:06)
[2017-06-11] MEDS: cefTRIAXone 1 GM in STERILE WATER INJ 10 ML IV SCH (08:06)
[2017-06-11 08:12] VITALS: BP 102/72; PULSE 66; TEMP 98.3; O2SAT 90
[2017-06-11] MEDS: ONDANSETRON DISINTEGRATING 4 MG TAB PO PRN (08:14)
[2017-06-11] MEDS: CEPACOL LOZENGE PO PRN (08:14)
[2017-06-11] MEDS: INSULIN REGULAR HUMAN 100 UNIT/ML UNIT SC SCH ×2 (08:15→12:05)
[2017-06-11] MEDS: ACETAMINOPHEN 325 MG TAB PO PRN (08:16)
[2017-06-11] MEDS: PANTOPRAZOLE SODIUM 40 MG TAB PO SCH (08:18)
[2017-06-11] MEDS: guaiFENesin 600 MG TAB.ER PO SCH (08:18)
[2017-06-11] MEDS: ALLOPURINOL 300 MG TAB PO SCH (08:18)
[2017-06-11] MEDS: metFORMIN HCL 500 MG TAB PO SCH (08:18)
[2017-06-11] MEDS: PIOGLITAZONE HCL 15 MG TAB PO SCH (08:18)
[2017-06-11] MEDS: CHOLECALCIFEROL VIT D3 1,000 UNITS TAB PO SCH (08:18)
[2017-06-11] MEDS: CYANO/VITAMIN B12 1000 MCG TAB PO SCH (08:19)
[2017-06-11] MEDS: ENOXAPARIN 40 MG/0.4 ML SYR SC SCH (08:19)
[2017-06-11] MEDS: SENNOSIDES/DOCUSATE SODIUM TAB PO SCH (08:19)
[2017-06-11] MEDS: IPRATROPIUM/ALBUTEROL 3 ML DEYVIAL IH SCH (08:47)
[2017-06-11] MEDS: Fluticasone/Salmeterol [Advair Hfa 115-21 Mcg Inhaler] 2 PUFFS PO SCH (08:47)
[2017-06-11] MEDS: TIOTROPIUM INHALER 18 MCG/DOSE 5 DOSE/MDI IH SCH (08:49)
[2017-06-11] MEDS: LOSARTAN POTASSIUM 50 MG TAB PO SCH (12:05)
--- NOTE | 2017-06-11 15:17 | PDDCSUM ---
Discharge Summary Discharge Summary: DISCHARGE SUMMARY FOLLOW-UP ITEMS: Follow up with primary care provider DATE OF ADMISSION: 06/08/2017 DATE OF DISCHARGE: 06/11/2017 DISCHARGE DIAGNOSES: 1. Severe sepsis present on admission 2. Right upper lobe pneumonia present on admission 3. Acute hypoxic respiratory failure 4. Chronic COPD without exacerbation 5. Chronic pain with continuous opiate dependency 6. Diabetes mellitus type 2 7. Chronic hypertension 8. Acute metabolic lactic acidosis CONSULTATIONS: None PROCEDURES / IMAGING: Chest imaging demonstrating right upper lobe infiltrate CHIEF COMPLAINT: Acute cough, general malaise SUBJECTIVE: Patient is feeling well at time discharge, his nausea has subsided, his cough has improved PHYSICAL EXAM ON DISCHARGE: Systolic blood pressure is 102, heart rate 80, afebrile overnight, satting well on 2 L nasal cannula, alert awake oriented x3, no apparent distress, lungs are clear to auscultation bilaterally with a faint inspiratory crackle in the right lateral posterior segment but improved from day prior, heart rhythm is regular, no lower extremity edema, bowel sounds are present LABS ON DISCHARGE: White blood cell count 7300, hemoglobin 12 HOSPITAL COURSE BY PROBLEM: The patient presented with severe sepsis evidenced by autonomic dysregulation and failure in the setting of infection with hypotension, respiratory failure, lactic acidosis, tachycardia, fever, tachypnea, meeting all sepsis -2 criteria. His source of infection was right upper lobe pneumonia and he received 4 days IV ceftriaxone and azithromycin. The patient did began experiencing some nausea temporarily associated with his biotics, adjust him to oral levofloxacin for 3 subsequent days, to complete a total of 7 days treatment. Symptomatic Jerod he was improving with Mucinex and he feels like he is able to cough out a significant amount of sputum, which improved his overall breathing symptomatology. I discussed his hospital course with his primary care provider , Dr. Andrea Last, and she agrees that the patient does frequently experience right upper lobe pneumonias and is consistently treated effectively with courses of antibiotics. Additionally, the patient did experience acute hypoxic respiratory failure evidenced by SpO2 of 79% on his home supplemental oxygen of 2 L nasal cannula on presentation, with symptomatic shortness of breath, labored breathing, requiring supplemental oxygen up titration to 5 liters/ minute in order to accomplish stabilization. After receiving effective treatment for his pneumonia, his oxygen requirements were titrated down to his home oxygen levels of 2 liters/minute are to discharge. His blood pressure medications were held during his hospitalization given his acute metabolic acidosis and they will be re-initiated the day after discharge. His pain medications were continued, and the patient has pain medications to be picked up this coming Thursday. DISCHARGE MEDICATIONS: Please see official discharge medication reconciliation sheet in chart , levofloxacin 750 mg daily, as needed Zofran, as needed Mucinex. Continue all other home medications DISCHARGE INSTRUCTIONS: Please follow up with primary care provider. TIME SPENT: Greater than 30 minutes were spent on direct patient care, as well as discharge planning and preparation.
--- NOTE | 2017-06-13 15:08 | ASDISCHSUM ---
Discharge Information Plan Status: Medically Cleared to Leave: Discharge Date:06/11/2017 02:29 PM CM D/C Disposition: ADT D/C Disposition:Home, Routine, Self-Care Projected Discharge Date:06/11/2017 02:29 PM Transportation at D/C: Discharge Delay Reason: Follow-Up Date:06/11/2017 02:29 PM Discharge Slot: Final Diagnosis:CP, Acute hemoptysis Placement Information Patient Contact Information Contact Name:DAVIDPURVIMERY Relationship: Address:[address] City:[place] Alternate Phone: [facility]/Zip Code:[place] [address] Email: Financial Information Financial Class: Primary Plan Desc:[facility] Primary Plan Number:[id number] Secondary Plan Desc: Secondary Plan Number: Assessment Information [facility] CM Progress Note CM Note CM Note Notes: 57 year old male admitted for CP, Acute hemoptysis, Severe sepsis, Hypoxic resp failure, COPD, DM-2, HTN. Has a hx of chronic pain and narc dependency. CM to follow for discharge needs. Date Signed: 06/09/2017 05:23 PM Electronically Signed By:Akua Gee LCSW [facility] CM Progress Note CM Note CM Note Notes: Pt cleared by PT for home, anticipate will dc home w/support of when medically stable. CM available for any changes. DC Plan: Home Date Signed: 06/10/2017 02:49 PM Electronically Signed By:June Espinosa RN Intervention Information
== END 2017-06-11 14:29 | disposition home or self-care (01) | DRG 871 ==
LOC: EDUNIT# → F2N 13:50 → F1N 06-09 14:28
PROVIDERS: ADMIT Internal Medicine; ATTEND Internal Medicine
DX: A41.9 Sepsis, unspecified organism (principal); R65.21 Severe sepsis with septic shock; J96.01 Acute respiratory failure with hypoxia; J18.1 Lobar pneumonia, unspecified organism; J44.1 Chronic obstructive pulmonary disease with (acute) exacerbation; E87.2 Acidosis; F11.20 Opioid dependence, uncomplicated; G89.29 Other chronic pain; E11.9 Type 2 diabetes mellitus without complications; I10 Essential (primary) hypertension; Z86.711 Personal history of pulmonary embolism; Z80.42 Family history of malignant neoplasm of prostate; Z79.84 Long term (current) use of oral hypoglycemic drugs
CPT/HCPCS: 87449-90; 92610-GN; 96374; 97116-GP; 97161-GP; J0456; J0696; J1650; J1815; J2405; J2550; Q9967

== ENCOUNTER 2017-06-28 22:15 | Observation (INO) | payer MEDICAID ==
--- NOTE | 2017-06-28 22:17 | EDPHY ---
H & P HPI/ROS: HPI CHIEF COMPLAINT: Nausea vomiting, shortness of breath, cough, generalized weakness HISTORY OF PRESENT ILLNESS: This patient very pleasant 57-year-old [place] room with generalized weakness, worsening cough, worsening shortness of breath, and sinus congestion. States he was vomiting today multiple times. Also had some loose watery stools. Complains of generalized weakness. Decided call 911 due to worsening generalized weakness and vomiting. Denies fever. But has had chills. Past Medical History: Recent admission for severe sepsis, with a right upper lobe pneumonia, COPD, history of hypertension, diabetes, chronic pain, COPD on 2 L nasal cannula Past Surgical History: No recent surgery Social History: Denies daily use of drugs alcohol tobacco. Family History: Noncontributory ROS REVIEW OF SYSTEMS: A comprehensive 10 point review of systems is otherwise negative aside from elements mentioned in the history of present illness. Exam Constitutional appears nontoxic triage nursing summary reviewed, vital signs reviewed, awake/alert. Eyes normal conjunctivae and sclera, EOMI, PERRLA. HENT normal inspection, atraumatic, moist mucus membranes, no epistaxis, neck supple/ no meningismus, no raccoon eyes. Respiratory clear to auscultation bilaterally, normal breath sounds, no respiratory distress, no wheezing. Cardiovascular rate normal, regular rhythm, no murmur, no edema, distal pulses normal. Gastrointestinal soft, non-tender, no rebound, no guarding, normal bowel sounds, no distension, no pulsatile mass. Genitourinary no CVA tenderness. Musculoskeletal no midline vertebral tenderness, full range of motion, no calf swelling, no tenderness of extremities, no meningismus, good pulses, neurovascularly intact. Skin pink, warm, & dry, no rash, skin atraumatic. Neurologic awake, alert and oriented x 3, AAOx3, moves all 4 extremities equally, motor intact, sensory intact, CN II-XII intact, normal cerebellar, normal vision, normal speech. Psychiatric normal mood/affect. Heme/Lymph/Immune no lymphadenopathy. Differential Diagnosis: Includes but is not limited to in a particular order sepsis, bacteremia, pneumonia, infection, electrolyte disturbance, dehydration, influenza, COPD exacerbation Medical Decision Making: Plan for this patient IV establishment with chest x- ray, EKG, blood work, cardiac marker, lactic acid, check electrolytes, DuoNeb breathing treatment, IV fluids. Re-evaluate Re-evaluation: EKG interpretation by me on record in nubelo system. Impression time of EKG 2233, sinus rhythm rate of 66, similar previous EKG dated 06/08/2017 I do not appreciate new acute ischemia. 2357: Patient's x-ray reviewed shows resolving right upper lobe pneumonia. Additionally did review this patient's blood work. No high white count. Electrolytes are appropriate. Blood glucose normal. Troponin negative 1243: I did reexamine him at this time. His vitals are stable. His blood work and workup for generalized weakness and flu-like illness is unremarkable. I offered the patient to go home however he has declined he wants to be admitted the hospital for global generalized weakness. He tells me does not feel good he does not think he safe to go home as he feels 2 globally weak. [place] He is concerned that if he goes back up there he will have a problem. He is requesting hospital admission. Source: Patient, EMS - Personal History Tetanus Vaccine Date: ~2011 - Medical/Surgical History Hx Asthma: Yes Hx Chronic Respiratory Disease: Yes Hx Diabetes: Yes Hx Cardiac Disease: Yes Hx Renal Disease: No Hx Cirrhosis: No Hx Alcoholism: No Hx HIV/AIDS: No Hx Splenectomy or Spleen Trauma: No Other PMH: Chronic pain, PE x5, asthma/COPD, DM II, Lung surgery-biopsies, kidneystones, hossein shoulder tears, r knee injuries, lower back pain, backfractures, R total shoulder replacement, HTN - Social History Smoking Status: Never smoked Constitutional: Initial Vital Signs Temperature (C) 36.4 C 06/28/17 22:20 Heart Rate 71 06/28/17 22:20 Respiratory Rate 20 06/28/17 22:20 Blood Pressure 127/81 H 06/28/17 22:20 O2 Sat (%) 98 06/28/17 22:20 O2 Delivery Mode Nasal Cannula O2 (L/minute) 2 Allergies/Adverse Reactions: ibuprofen Allergy (Severe, Verified 06/28/17 22:18) Anaphylaxis montelukast [From Singulair] Allergy (Severe, Verified 06/28/17 22:18) Anaphylaxis Home Medications: Medication Instructions Recorded Atorvastatin Calcium [Lipitor 40 40 mg PO DAILY@20 01/20/17 mg (*)] Fluticasone/Salmeterol [Advair Hfa 2 puffs PO BID@,01/20/17 115-21 Mcg Inhaler] Ipratropium/Albuterol [Duoneb (*)] 3 ml IH BID@,01/20/17 Losartan Potassium [Cozaar 50 mg 50 mg PO DAILY@01/20/17 (*)] Pantoprazole Sodium [Protonix 40mg 40 mg PO DAILY@01/20/17 (*)] Pioglitazone HCl 45 mg PO DAILY@01/20/17 Tiotropium Inhaler [Spiriva 18 mcg IH DAILY mdi 01/23/17 Handihaler] metFORMIN HCL [Glucophage 500 mg 1,000 mg PO BIDMEAL tab 01/23/17 (*)] oxyCODONE HCL [Oxycontin] 40 mg PO BID@ #60 tab.er.12h 01/23/17 oxyCODONE IR [Oxycodone Ir (*)] 20 mg PO Q4H PRN #90 tab 01/23/17 Cholecalciferol Vit D3 [Vitamin D3 1,000 units PO DAILY 06/08/17 (*)] Cyanocobalamin [Vitamin B12 (*)] 1,000 mcg PO DAILY 06/08/17 Albuterol [Proventil Inhaler HFA 1 - 2 puffs IH DAILY PRN 06/29/17 (*)] Allopurinol [Allopurinol 300 MG 300 mg PO BID@,06/29/17 (RX)] Aspirin [Aspirin 81mg (*)] 81 mg PO DAILY 06/29/17 Multivitamins [Multivitamin (*)] 1 each PO DAILY 06/29/17 Medical Decision Making - Data Points Laboratory Results: Laboratory Results 06/28/17 22:18 06/28/17 22:18 Medications Given: Albuterol/Ipratropium (Duoneb) 3 ml IH BID@ [facility] Stop: 12/26/17 09:59 Last Admin: 06/29/17 21:01 Dose: 3 ml Allopurinol (Allopurinol) 300 mg PO BID@ [facility] Stop: 12/26/17 09:44 Last Admin: 06/29/17 21:16 Dose: 300 mg Atorvastatin Calcium (Lipitor) 40 mg PO DAILY@20 [facility] Stop: 12/26/17 19:59 Last Admin: 06/29/17 21:16 Dose: 40 mg Benzonatate (Tessalon Pearles) 200 mg PO TID PRN PRN Reason: Cough, Mild Stop: 12/26/17 11:44 Last Admin: 06/29/17 18:30 Dose: 200 mg Enoxaparin Sodium (Lovenox) 40 mg SC DAILY [facility] Stop: 12/26/17 08:59 Last Admin: 06/29/17 08:33 Dose: 40 mg Losartan Potassium (Cozaar) 50 mg PO DAILY@08 [facility] Stop: 12/26/17 07:59 Last Admin: 06/29/17 10:16 Dose: 50 mg Magnesium Hydroxide (Milk Of Magnesia) 30 ml PO DAILY PRN; Protocol PRN Reason: Constipation Stop: 12/26/17 07:22 Last Admin: 06/29/17 22:42 Dose: 30 ml Metformin HCl (Glucophage) 1,000 mg PO BIDMEAL [facility] Stop: 12/26/17 17:59 Last Admin: 06/29/17 18:31 Dose: Not Given Multivitamins (Tab-A-Romulo) 1 each PO DAILY [facility] Stop: 12/26/17 09:44 Last Admin: 06/29/17 10:16 Dose: 1 each Ondansetron HCl (Zofran) 4 mg IVP Q4HRS PRN PRN Reason: Nausea/Vomiting, Can't Take PO Stop: 12/26/17 04:13 Last Admin: 06/29/17 11:41 Dose: 4 mg Oxycodone HCl (Oxycontin) 40 mg PO BID@ [facility] Stop: 07/09/17 09:44 Last Admin: 06/29/17 21:16 Dose: 40 mg Oxycodone HCl (Oxycodone Ir) 20 mg PO Q4H PRN PRN Reason: Pain, Severe Stop: 07/09/17 09:37 Last Admin: 06/29/17 22:40 Dose: 20 mg Pantoprazole Sodium (Protonix) 40 mg PO DAILY@08 [facility] Stop: 12/26/17 07:59 Last Admin: 06/29/17 10:16 Dose: 40 mg Pioglitazone HCl (Actos) 45 mg PO DAILY@08 [facility] Stop: 12/26/17 09:59 Last Admin: 06/29/17 10:20 Dose: 45 mg Fluticasone/Salmeterol (Advair) 1 puffs IH BID [facility] Stop: 12/26/17 20:59 Last Admin: 06/29/17 21:02 Dose: Not Given Tiotropium [place] (Spiriva Handihaler) 18 mcg IH DAILY M[facility]A Stop: 12/26/17 09:44 Last Admin: 06/29/17 10:26 Dose: Not Given Vitamin B Complex (Vitamin B12) 1,000 mcg PO DAILY M[facility]A Stop: 12/26/17 09:44 Last Admin: 06/29/17 10:16 Dose: 1,000 mcg Discontinued Medications Albuterol/Ipratropium (Duoneb) 3 ml IH EDNOW ONE Stop: 06/28/17 22:22 Last Admin: 06/28/17 22:34 Dose: 3 ml Sodium Chloride (Ns) 1,000 mls @ 0 mls/hr IV EDNOW ONE; Wide Open PRN Reason: Protocol Stop: 06/28/17 22:21 Last Admin: 06/28/17 22:33 Dose: 1,000 mls Miscellaneous Medication (Fluticasone/Salmeterol [Advair Hfa 115-21 Mcg Inhaler] ) 2 puffs PO BID@08,20 [facility] Stop: 12/26/17 09:44 Last Admin: 06/29/17 10:27 Dose: Not Given Oxycodone HCl (Oxycodone Ir) 15 mg PO Q6HRS PRN PRN Reason: Pain, Severe Able to Take PO Stop: 07/09/17 07:22 Last Admin: 06/29/17 08:32 Dose: 15 mg Departure - Departure Disposition: [facility] Acute Clinical Impression: Generalized weakness Condition: Fair
[2017-06-28] MEDS ORDERED: NS 1,000 ML IV ONE (22:20)
[2017-06-28] MEDS ORDERED: IPRATROPIUM/ALBUTEROL 3 ML DEYVIAL IH ONE (22:21)
[2017-06-28 22:32] LABS: PLATELET COUNT 297 10^3/uL (150-400)
[2017-06-28 22:37] LABS: INR 1.04 (0.83-1.16); PROTIME(PATIENT) 13.8 SEC (12.0-15.0)
--- NOTE | 2017-06-28 22:39 | CPEKG ---
Heart Rate: 66 RR Interval: 909 P-R Interval: 176 QRSD Interval: 98 QT Interval: 454 QTC Interval: 476 P [place]: 40 QRS [place]: 80 T Wave [place]: 5 EKG Severity - ABNORMAL ECG - EKG Impression: SINUS RHYTHM EKG Impression: PROBABLE LEFT ATRIAL ABNORMALITY EKG Impression: NONSPECIFIC T ABNORMALITIES, LATERAL LEADS EKG Impression: BORDERLINE PROLONGED QT INTERVAL Electronically Signed By: Ayo Pisano 29-Jun-2017 06:40:05
[2017-06-28 22:45] LABS: CREATINE KINASE 50 IU/L (0-224)
[2017-06-29] MEDS ORDERED: IOPAMIDOL (ISOVUE 370) 100 ML BTL IV ONE (02:22)
[2017-06-29] MEDS ORDERED: ACETAMINOPHEN 325 MG TAB PO PRN (04:14)
[2017-06-29 06:08] LABS: PLATELET COUNT 274 10^3/uL (150-400)
[2017-06-29] MEDS ORDERED: POLYETHYLENE GLYCOL 3350 17 GM PKT PO PRN (07:23)
[2017-06-29] MEDS ORDERED: oxyCODONE IR 15 MG TAB PO PRN (07:23)
[2017-06-29] MEDS ORDERED: SENNOSIDES/DOCUSATE SODIUM TAB PO PRN (07:23)
[2017-06-29] MEDS ORDERED: LACTULOSE 20 GM/30 ML UDCUP PO PRN (07:23)
[2017-06-29] MEDS ORDERED: BISACODYL 10 MG SUPP PR PRN (07:23)
[2017-06-29] MEDS ORDERED: PIOGLITAZONE HCL 45 MG PO SCH (08:00)
[2017-06-29] MEDS: ENOXAPARIN 40 MG/0.4 ML SYR SC SCH (08:33)
[2017-06-29] MEDS ORDERED: ALBUTEROL 60 PUFFS/8 GM MDI IH PRN (09:38)
[2017-06-29] MEDS ORDERED: NON-FORMULARY NEW DRUG (Fluticasone/Salmeterol [Advair Hfa 115-21 Mcg Inhaler] 2 PUFFS) PO SCH ×2 (09:45→20:00)
[2017-06-29] MEDS: CYANO/VITAMIN B12 1000 MCG TAB PO SCH (10:16)
[2017-06-29] MEDS: PANTOPRAZOLE SODIUM 40 MG TAB PO SCH (10:16)
[2017-06-29] MEDS: MULTIVITAMINS 1 EACH TAB PO SCH (10:16)
[2017-06-29] MEDS: LOSARTAN POTASSIUM 50 MG TAB PO SCH (10:16)
[2017-06-29] MEDS: ALLOPURINOL 300 MG TAB PO SCH ×2 (10:18→21:16)
[2017-06-29] MEDS: PIOGLITAZONE HCL 15 MG TAB PO SCH (10:20)
--- NOTE | 2017-06-29 10:22 | ASMTCMCOM ---
CM Note CM Note Notes: Pt admitted w/SOB and generalized weakness. He lives in [facility]. PT/OT evals pending. DC needs, if any, not clear yet. CM will follow. Date Signed: 06/29/2017 10:21 AM Electronically Signed By:Shelley Villanueva RN
[2017-06-29] MEDS: TIOTROPIUM INHALER 18 MCG/DOSE 5 DOSE/MDI IH SCH (10:26)
[2017-06-29] MEDS: IPRATROPIUM/ALBUTEROL 3 ML DEYVIAL IH SCH ×2 (10:28→21:01)
--- NOTE | 2017-06-29 11:00 | PDGENHP ---
History and Physical - Chief Complaint SOB, cough, generalized weakness - History of Present Illness Source - patient provides history and appears reliable. HPI - Pleasant 57 yo M with pmx significant for recent hospitalization for severe sepsis related RUL PNA s/p abx, COPD with chronic hypoxic resp failure on 2lpm O2 continuously, HTN, DM II, chronic pain on chronic narcotic therapy, gout who presents to the ED with complaints of worsening SOB, cough and generalized weakness. Patient reports after his discharge late May who only felt like he was improving for approximately 1 day. Patient reports in the last 2-3 days he developed also nausea/vomiting/diarrhea as well as increased sinus congestion. Patient denies any fevers but notes some chills. he admits to chronic drenching night sweats "for years." He also reports he has been having increased SOB and audible wheezing. Patient lives [place] 9[address] [place] elevation and at baseline wears 2 lpm. History Information - Allergies/Home Medication List Allergies/Adverse Reactions: ibuprofen Allergy (Severe, Verified 06/28/17 22:18) Anaphylaxis montelukast [From Singulair] Allergy (Severe, Verified 06/28/17 22:18) Anaphylaxis Home Medications: Atorvastatin Calcium [Lipitor 40 mg (*)] 40 mg PO DAILY@01/20/17 [Last Taken 06/28/17] Fluticasone/Salmeterol [Advair Hfa 115-21 Mcg Inhaler] 2 puffs PO BID@,10/01 [Last Taken 06/28/17 08:00] Ipratropium/Albuterol [Duoneb (*)] 3 ml IH BID@,01/20/17 [Last Taken 08:00] Losartan Potassium [Cozaar 50 mg (*)] 50 mg PO DAILY@01/20/17 [Last Taken 04/04] Pantoprazole Sodium [Protonix 40mg (*)] 40 mg PO DAILY@01/20/17 [Last Taken 06/28/17] Pioglitazone HCl 45 mg PO DAILY@01/20/17 [Last Taken 06/28/17] Cholecalciferol Vit D3 [Vitamin D3 (*)] 1,000 units PO DAILY 06/08/17 [Last Taken 06/28/17] Cyanocobalamin [Vitamin B12 (*)] 1,000 mcg PO DAILY 06/08/17 [Last Taken ] Albuterol [Proventil Inhaler HFA (*)] 1 - 2 puffs IH DAILY PRN 06/29/17 [Last Taken Unknown] Allopurinol [Allopurinol 300 MG (RX)] 300 mg PO BID@08,20 06/29/17 [Last Taken 06/28/17 08:00] Aspirin [Aspirin 81mg (*)] 81 mg PO DAILY 06/29/17 [Last Taken 06/28/17] Multivitamins [Multivitamin (*)] 1 each PO DAILY 06/29/17 [Last Taken 06/28/17] I have personally reviewed and updated: family history, medical history, social history, surgical history - Past Medical History asthma, 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 - Surgical History Additional surgical history: L4-S1 surgery in January 2017, lung biopsy, kidney stones, right total shoulder, right knee - Family History Positive for: non-pertinent Additional family history: Father with deep venous thrombosis, severe chemical burn, prostate cancer and CAD. mother with coronary artery disease and lung ca in her 80s. Grandparents with CAD. 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 [employer] - FULL. Review of Systems Review of Systems: ROS: 10pt was reviewed & negative except for what was stated in HPI & below Constitutional: Reports: chills, recent illness. Denies: fever EENMT: Reports: nose congestion, other (sinus discomfort). Denies: sore throat Cardiac: Reports: chest pain (right sided) Respiratory: Reports: cough, shortness of breath, wheezing Gastrointestinal: Reports: vomitting, diarrhea, nausea. Denies: abdominal pain (r) Genitourinary: Reports: no symptoms. Denies: dysuria, hematuria Muscolosketal: Reports: back pain, gout, muscle pain Skin: Reports: no symptoms Neurological: Reports: no symptoms Hematologic/Lymphatic: Reports: no symptoms Immunologic/Allergy: Reports: no symptoms Physical Exam Physical Exam: Selected Entries 06/28/17 22:20 Blood Pressure Automatic Method Heart Rate 71 Respiratory 20 Rate O2 Sat (%) 98 Temperature (C) 36.4 C Blood Pressure 127/81 H Mean Arterial 96 Pressure (MAP) O2 (L/minute) 2 O2 Delivery Nasal Cannula Mode Temperature Oral Source Temp Pulse Resp BP Pulse Ox 36.4 C 57 L 12 122/73 H 95 06/29/17 08:40 06/29/17 10:30 06/29/17 10:30 06/29/17 10:16 06/29/17 10:30 O2 (L/minute) 2 Constitutional: no apparent distress, appears nourished, chronically ill appearing, No uncomfortable (lays quietly and still in bed.) Eyes: PERRL, anicteric sclera, EOMI, No scleral injection Ears, Nose, Mouth, Throat: no oral mucosal ulcers, dry mucous membranes Cardiovascular: regular rate and rhythym, no murmur, rub, or gallop, pulses symmetric bilaterally, No edema Peripheral Pulses: 2+: femoral (R), femoral (L) Respiratory: no respiratory distress, no rales or rhonchi, reduced air movement (bibasilar) Gastrointestinal: normoactive bowel sounds, soft, non-tender abdomen, No tenderness, No hepatosplenomegally, No guarding, No distension Genitourinary: no bladder tenderness, No carver in urethra Skin: warm, normal color, no rashes or abrasions Musculoskeletal: full muscle strength, No generalized weakness (patient lays quietly in bed. able to sit up independently) Neurologic: AAOx3, sensation intact bilaterally, No facial droop Psychiatric: interacting appropriately, not anxious, not encephalopathic, thought process linear Lab Data & Imaging Review 06/29/17 06:02 06/29/17 06:02 Laboratory Tests 06/28/17 06/28/17 06/28/17 22:18 22:18 22:18 WBC 7.36 RBC 4.41 Hgb 13.0 L Hct 39.6 L MCV 89.8 MCH 29.5 MCHC 32.8 RDW 14.8 Plt Count 297 PT 13.8 INR 1.04 APTT 29.0 D-Dimer VBG Lactic Acid Sodium 141 Potassium 4.0 Chloride 104 Carbon Dioxide 22 Anion Gap 15 BUN 16 Creatinine 0.8 Estimated GFR > 60 Glucose 110 H Calcium 9.6 Magnesium 1.8 Total Bilirubin 0.7 Conjugated Bilirubin 0.2 Unconjugated Bilirubin 0.5 AST 19 ALT 29 Alkaline Phosphatase 76 Creatine Kinase 50 Troponin I < 0.012 NT-Pro-B Natriuret Pep 249 H Total Protein 6.7 Albumin 4.0 Lipase 116 Nasal Influenza A PCR Nasal Influenza B PCR 06/28/17 06/28/17 06/28/17 22:18 23:00 23:00 WBC RBC Hgb Hct MCV MCH MCHC RDW Plt Count PT INR APTT D-Dimer 0.57 H VBG Lactic Acid 1.6 Sodium Potassium Chloride Carbon Dioxide Anion Gap BUN Creatinine Estimated GFR Glucose Calcium Magnesium Total Bilirubin Conjugated Bilirubin Unconjugated Bilirubin AST ALT Alkaline Phosphatase Creatine Kinase Troponin I NT-Pro-B Natriuret Pep Total Protein Albumin Lipase Nasal Influenza A PCR NEGATIVE FOR FLU A Nasal Influenza B PCR NEGATIVE FOR FLU B WBC 6.18 10^3/uL (3.80-9.50) 06/29/17 06:02 RBC 3.92 10^6/uL (4.40-6.38) L 06/29/17 06:02 Hgb 11.8 g/dL (13.7-17.5) L 06/29/17 06:02 Hct 35.1 % (40.0-51.0) L 06/29/17 06:02 MCV 89.5 fL (81.5-99.8) 06/29/17 06:02 MCH 30.1 pg (27.9-34.1) 06/29/17 06:02 MCHC 33.6 g/dL (32.4-36.7) 06/29/17 06:02 RDW 15.0 % (11.5-15.2) 06/29/17 06:02 Plt Count 274 10^3/uL (150-400) 06/29/17 06:02 MPV 9.9 fL (8.7-11.7) 06/29/17 06:02 Neut % (Auto) 43.5 % (39.3-74.2) 06/29/17 06:02 Lymph % (Auto) 44.0 % (15.0-45.0) 06/29/17 06:02 [place] % (Auto) 8.9 % (4.5-13.0) 06/29/17 06:02 Eos % (Auto) 2.9 % (0.6-7.6) 06/29/17 06:02 Baso % (Auto) 0.5 % (0.3-1.7) 06/29/17 06:02 Nucleat RBC Rel Count 0.0 % (0.0-0.2) 06/29/17 06:02 Absolute Neuts (auto) 2.69 10^3/uL (1.70-6.50) 06/29/17 06:02 Absolute Lymphs (auto) 2.72 10^3/uL (1.00-3.00) 06/29/17 06:02 Absolute Monos (auto) 0.55 10^3/uL (0.30-0.80) 06/29/17 06:02 Absolute Eos (auto) 0.18 10^3/uL (0.03-0.40) 06/29/17 06:02 Absolute Basos (auto) 0.03 10^3/uL (0.02-0.10) 06/29/17 06:02 Absolute Nucleated RBC 0.00 10^3/uL (0-0.01) 06/29/17 06:02 Immature Gran % 0.2 % (0.0-1.1) 06/29/17 06:02 Immature Gran # 0.01 10^3/uL (0.00-0.10) 06/29/17 06:02 PT 13.8 SEC (12.0-15.0) 06/28/17 22:18 INR 1.04 (0.83-1.16) 06/28/17 22:18 APTT 29.0 SEC (23.0-38.0) 06/28/17 22:18 D-Dimer 0.57 ug/mLFEU (0.00-0.50) H 06/28/17 22:18 VBG Lactic Acid 1.6 mmol/L (0.7-2.1) 06/28/17 23:00 Sodium 142 mEq/L (135-145) 06/29/17 06:02 Potassium 4.0 mEq/L (3.5-5.2) 06/29/17 06:02 Chloride 107 mEq/L (97-110) 06/29/17 06:02 Carbon Dioxide 23 mEq/l (22-31) 06/29/17 06:02 Anion Gap 12 mEq/L (8-16) 06/29/17 06:02 BUN 15 mg/dL (7-23) 06/29/17 06:02 Creatinine 0.8 mg/dL (0.7-1.3) 06/29/17 06:02 Estimated GFR > 60 06/29/17 06:02 Glucose 112 mg/dL (70-100) H 06/29/17 06:02 POC Glucose 93 mg/dL (70-100) 06/29/17 08:39 Calcium 8.9 mg/dL (8.5-10.4) 06/29/17 06:02 Phosphorus 4.4 mg/dL (2.5-4.5) 06/29/17 06:02 Magnesium 1.8 mg/dL (1.6-2.3) 06/28/17 22:18 Total Bilirubin 0.5 mg/dL (0.1-1.4) 06/29/17 06:02 Conjugated Bilirubin 0.2 mg/dL (0.0-0.5) 06/28/17 22:18 Unconjugated Bilirubin 0.5 mg/dL (0.0-1.1) 06/28/17 22:18 AST 15 IU/L (17-59) L 06/29/17 06:02 ALT 25 IU/L (21-72) 06/29/17 06:02 Alkaline Phosphatase 54 IU/L (38-126) 06/29/17 06:02 Creatine Kinase 50 IU/L (0-224) 06/28/17 22:18 CK-MB (CK-2) Fraction 1.15 ng/mL (0.00-3.19) 06/28/17:18 Troponin I < 0.012 ng/mL (0.000-0.034) 06/29/17 06:02 NT-Pro-B Natriuret Pep 249 pg/mL (0-125) H 06/28/17 22:18 Total Protein 5.4 g/dL (6.3-8.2) L 06/29/17 06:02 Albumin 3.1 g/dL (3.5-5.0) L 06/29/17 06:02 Lipase 116 IU/L (23-300) 06/28/17 22:18 TSH 0.993 uIU/mL (0.465-4.680) 06/29/17 06:02 Nasal Influenza A PCR NEGATIVE FOR FLU A (NEGATIVE) 06/28/17 23:00 Nasal Influenza B PCR NEGATIVE FOR FLU B (NEGATIVE) 06/28/17 23:00 Imaging Review: Portable chest, single view. History: Chest pain. Comparison: 08 June 2017. Findings: The consolidation in the right upper lobe is resolved. Mild diskoid atelectasis or scarring right lower lobe. Left lung is clear. Heart size is stable. Pulmonary vascularity is normal. Impression: Clearing of the right upper lobe pneumonia. No evidence for acute cardiopulmonary abnormality. Addendum Addendum: Prior imaging dating back to 09/05/2011 and 09/03/2011 was reviewed as well as study from 09/30/2011 that was postoperative. The density at the right lung base posteriorly is elongated with surgical lung biopsy clips along the superior and inferior margins of this thickening. This in all likelihood is related to postoperative scarring in this patient with previous lung biopsy in this region. The thickening is felt to be probably benign. Consider follow-up noncontrast CT of the chest in 6 months to confirm stability and benign features. Biopsy is not felt to be necessary at this time. This was discussed by telephone with Dr. Elkins. Addendum Dictated By: Chadwick Valero MD *This report was compiled using a voice recognition dictation system and may contain typographical errors* 1002 T:PSCRIBE 06/29/17 1002 Electronically Signed by:Chadwick Valero MD 06/29/17 1005 CC: Ayo Pisano MD; Andrea Last MD; Fátima Richards MD CT Pulmonary Angiogram History: Dyspnea, wheezing, weakness. Right chest pain. Elevated D-dimer. History of pulmonary embolus. Technique: Multiplanar and 3D reconstructions are reviewed on an independent 3D workstation. The patient received 85 mL of Isovue-370 intravenously. Dose reduction protocol was used. Comparison: Previous examination June 08, 2017 and September 30, 2011. Findings: Chest: Recent right upper lobe pneumonitis is markedly improved with minimal residual infiltrate remaining. There is no pleural effusion. Heart size remains normal without pericardial effusion. Shotty mediastinal and hilar noncalcified lymph nodes are stable since 2011. There has always been some consolidation at the posterior right lung base greater in 2012. Currently, this has a pleurally based somewhat nodular configuration. This is perhaps subtly more prominent than June 08, 2017 but is significantly less prominent than in 2011. It measures about 16 mm in maximum diameter. There is less gas in the esophagus currently than 3 weeks ago. There is chronic linear scarring at the left lung base. A small noncalcified nodule in the lateral costophrenic gutter is smaller since 2012. There is a benign "exostosis-like" bony growth that projects between the lateral right 6th and 5th ribs, new since 2012, that may be post traumatic, post surgical or post inflammatory. CT Pulmonary Angiogram: There is no evidence for chronic or recurrent pulmonary embolic disease. Right-sided heart chambers are not dilated and the interventricular septum has normal morphology. Impression: 1. No recurrent pulmonary emboli. 2. Improving right upper lobe pneumonia. 3. Right lower lobe posterior pleurally based consolidation has a somewhat masslike appearance and should be followed in 6 months to assess for interval change. General information for patients regarding this examination can be found at [email or web address]. If you have questions or comments about this report, please contact me at [phone] (hospital) or [phone] (cell). Results discussed with Dr. Pisano at 3:04 a.m. This is an emergency on-call study. POS99 EKG additional interpertation: NSR 60s. no acute ST changes. QTc 476. nonspecific ekg changes/flattening lateral leads. Assessment & Plan Assessment: #Generalized weakness (Acute) - Likely multifactorial including recent illness, current GI sx, dehydration, dyspnea. CTA neg for evidence of PE. RUL pneumonitis. trop negative. Continue with IVF for hydration. no antibiotics at this time. PT/OT. #Dyspnea - patient with recent admission for RUL pna. he continues to have evidence of resolving inflammation. Patient completed course of levaquin after discharge 06/11/17. WBC WNL. no antibiotics at this time. #Nausea/vomiting/diarrhea - sx at this time have resolved. prn anti-emetics. likely viral syndrome. #COPD without exacerbation - pt without any current wheezing on exam. Continue patient home medications and nebulizer prn when med rec avail for review. #chronic hypoxic respiratory failure - continue supplemental oxygen. Patient is on his home O2 rate 2lpm. #benign essential HTN - BPs low normal. okay to resume home losartan #DM II - continue patient metformin and pioglitazone. ADA diet when tolerating. #gout - resume allopurinol #chronic pain - prn oxy #gerd - PPI per formulary. #anemia - likely of chronic disease. no evidnece of active bleeding. monitor # RLL scar - s/p remote bx. recs for 6 month follow up recommended. FEN - IVF overnight. electrolyte replacement prn. ADA diet as tolerated. PPX - SCDS. lovenox . COR - FULL Dispo - Admit to observation on medical floor at this time. I reviewed with patient results of CTA and labs.
[2017-06-29] MEDS: ONDANSETRON 4 MG/2 ML VIAL IVP PRN (11:41)
[2017-06-29] MEDS ORDERED: guaiFENesin/CODEINE PHOS 10 ML UDCUP PO PRN (11:44)
[2017-06-29] MEDS ORDERED: BENZONATATE 100 MG CAP PO PRN (11:45)
--- NOTE | 2017-06-29 11:49 | HOSPPROG ---
Hospitalist Progress Note Assessment/Plan: Prolonged service in addition to the time originally spent on the history and physical by Dr. Fátima Richards, direct patient care, [id number] with the patient at bedside for 35 min, from 09:30-10:05 a.m., addressing the following: -exact etiology of his symptoms is unclear, but will get respiratory viral panel in his recent hospital exposure -physical exam demonstrates no expiratory wheezes, some inspiratory crackles in the right posterior segment, heart rhythm is regular, patient is tearful, obese , without any abdominal tenderness to palpation and active bowel sounds -the patient is also grieving because his cat recently -his right chest pain may purely be secondary to costochondritis from ongoing cough in the setting of his resolving pneumonia, will treat supportively with as needed antitussive -I reviewed the patient's chest CT with Dr. Claus Crenshaw, and the patient definitely has a right lower lobe consolidation, but when I reviewed this with Dr. Chadwick Valero, he was able to pull the patient's records from 2011 when he had a PET scan as well as a wedge biopsy and it was determined at that time that the consolidation was from scarring and the area has actually decreased in size since that time -consequently, a lung biopsy is not indicated, and surveillance with chest CTs every 6-12 months is recommended -I discussed this in detail with the patient, and although initially recommended biopsy, after further discussion with Dr. Chadwick Valero, we have agreed with the patient not to biopsy at this time. -the patient can continue all of his occasions, he will be encouraged to take in regular diet, will engage with physical and occupational therapy, and we will evaluate whether his symptoms improve or worsen -chest CT demonstrates no pulmonary embolism and EKG demonstrates a normal sinus mechanism without any ST changes, personally interpreted -given that his white blood cell count is normal, he has no fever, and the chest CT demonstrates resolving pneumonia, will not administer antibiotic at this time -will attempt to reach out to his primary care provider later today if possible to provide an update Objective: Vital Signs Temp Pulse Resp BP Pulse Ox 36.5 C 65 16 110/71 94 06/29/17 11:43 06/29/17 11:43 06/29/17 11:43 06/29/17 11:43 06/29/17 11:43 Laboratory Results 06/29/17 06:02 06/29/17 06:02 06/28/17 06/29/17 06/30/17 05:59 05:59 05:59 Intake Total 1000 Balance 1000 PT 13.8 SEC (12.0-15.0) 06/28/17 22:18 INR 1.04 (0.83-1.16) 06/28/17 22:18 ICD10 Worksheet Patient Problems: Problems Problem Status Onset Pulmonary embolism Active COPD - Acute exacerbation of chronic obstructive airways disease Active Vomiting Acute Upper respiratory infection Acute Diarrhea Acute Dyspnea Acute COPD exacerbation Acute Hematemesis Acute Sepsis Acute Pneumonia Acute Generalized weakness Acute
[2017-06-29] MEDS: oxyCODONE IR 5 MG TAB PO PRN ×2 (18:30→22:40)
[2017-06-29] MEDS: metFORMIN HCL 500 MG TAB PO SCH (18:31)
[2017-06-29] MEDS ORDERED: ATORVASTATIN CALCIUM 40 MG TAB PO SCH (20:00)
[2017-06-29] MEDS: FLUTICASONE/SALMETER 250/50MCG DISKUS IH SCH (21:02)
[2017-06-29] MEDS: MAGNESIUM HYDROXIDE 30 ML UDCUP PO PRN (22:42)
[2017-06-30 05:41] LABS: PLATELET COUNT 258 10^3/uL (150-400)
[2017-06-30] MEDS: ONDANSETRON 4 MG/2 ML VIAL IVP PRN (06:47)
[2017-06-30] MEDS: oxyCODONE IR 5 MG TAB PO PRN ×2 (07:01→12:28)
[2017-06-30] MEDS: IPRATROPIUM/ALBUTEROL 3 ML DEYVIAL IH SCH (07:51)
[2017-06-30] MEDS ORDERED: PIOGLITAZONE HCL 15 MG TAB PO SCH (08:00)
[2017-06-30] MEDS: FLUTICASONE/SALMETER 250/50MCG DISKUS IH SCH (08:02)
[2017-06-30] MEDS: TIOTROPIUM INHALER 18 MCG/DOSE 5 DOSE/MDI IH SCH (08:02)
[2017-06-30] MEDS: CYANO/VITAMIN B12 1000 MCG TAB PO SCH (08:27)
[2017-06-30] MEDS: ALLOPURINOL 300 MG TAB PO SCH (08:27)
[2017-06-30] MEDS: PIOGLITAZONE HCL 15 MG TAB PO SCH (08:27)
[2017-06-30] MEDS: PANTOPRAZOLE SODIUM 40 MG TAB PO SCH (08:28)
[2017-06-30] MEDS: MULTIVITAMINS 1 EACH TAB PO SCH (08:28)
[2017-06-30] MEDS: LOSARTAN POTASSIUM 50 MG TAB PO SCH (08:34)
[2017-06-30] MEDS: metFORMIN HCL 500 MG TAB PO SCH (08:41)
[2017-06-30] MEDS: MAGNESIUM HYDROXIDE 30 ML UDCUP PO PRN (08:41)
[2017-06-30] MEDS: ENOXAPARIN 40 MG/0.4 ML SYR SC SCH (08:42)
[2017-06-30] MEDS ORDERED: CHOLECALCIFEROL VIT D3 1,000 UNITS TAB PO SCH (09:00)
--- NOTE | 2017-06-30 14:43 | PDIAF ---
- Diagnosis Diagnosis: Nausea, vomiting, chest discomfort - Medication Management Discharge Medications: Medications to Continue on Transfer Atorvastatin Calcium [Lipitor 40 mg (*)] 40 mg PO DAILY@01/20/17 [Last Taken 06/28/17] Fluticasone/Salmeterol [Advair Hfa 115-21 Mcg Inhaler] 2 puffs PO BID@,10/01 [Last Taken 06/28/17 08:00] Ipratropium/Albuterol [Duoneb (*)] 3 ml IH BID@01/20/17 [Last Taken 08:00] Losartan Potassium [Cozaar 50 mg (*)] 50 mg PO DAILY@01/20/17 [Last Taken 04/04] Pantoprazole Sodium [Protonix 40mg (*)] 40 mg PO DAILY@01/20/17 [Last Taken 06/28/17] Pioglitazone HCl 45 mg PO DAILY@01/20/17 [Last Taken 06/28/17] Tiotropium Inhaler [Spiriva Handihaler] 18 mcg IH DAILY mdi 01/23/17 [Last Taken 06/28/17] metFORMIN HCL [Glucophage 500 mg (*)] 1,000 mg PO BIDMEAL tab 01/23/17 [Last Taken 06/28/17 09:00] oxyCODONE HCL [Oxycontin] 40 mg PO BID@ #60 tab.er.12h 01/23/17 [Last Taken 06/28/17 08:00] oxyCODONE IR [Oxycodone Ir (*)] 20 mg PO Q4H PRN #90 tab 01/23/17 [Last Taken ] Cholecalciferol Vit D3 [Vitamin D3 (*)] 1,000 units PO DAILY 06/08/17 [Last Taken 06/28/17] Cyanocobalamin [Vitamin B12 (*)] 1,000 mcg PO DAILY 06/08/17 [Last Taken ] Albuterol [Proventil Inhaler HFA (*)] 1 - 2 puffs IH DAILY PRN 06/29/17 [Last Taken Unknown] Allopurinol [Allopurinol 300 MG (RX)] 300 mg PO BID@06/29/17 [Last Taken 06/28/17 08:00] Aspirin [Aspirin 81mg (*)] 81 mg PO DAILY 06/29/17 [Last Taken 06/28/17] Multivitamins [Multivitamin (*)] 1 each PO DAILY 06/29/17 [Last Taken 06/28/17] Acetaminophen [Tylenol 325mg (*)] 650 mg PO Q4HRS PRN tab 06/30/17 [Last Taken Unknown] Benzonatate [Tessalon Pearles] 200 mg PO TID PRN #30 cap 06/30/17 [Last Taken Unknown] guaiFENesin [Mucinex] 1,200 mg PO BID #10 tab.er.12h 06/30/17 [Last Taken Unknown] Custodial Antibiotics: NA Discharge Medications: Refer to the Discharge Home Medication list for PRN reason. PICC Care - Routine: N/A (a) - Orders Services needed: Home Care, Physical Therapy Home Care Face to Face: I certify that this patient was under my care and that I had the required [id number] encounter meeting the encounter requirements on the discharge day. My findings support the fact that the patient is homebound as defined in Home Care Face to Face Continued: CMS Chapter 7 Medicare Benefits Manual 30.1.1 , The condition of the patient is such that there exists a normal inability to leave home and consequently, leaving home would require a considerable and taxing effort. Isolation Type: None Oxygen: 2LPM continuous Diet Recommendation: no restrictions on diet Weigh Patient: weekly Taylor: Not applicable - Follow Up Care Current Providers and Referrals: Andrea Last MD [Primary Care Provider] - follow up in 1 week
[2017-06-30 14:51] VITALS: BP 115/76; PULSE 65; RESP 15; TEMP 97.4; O2SAT 95
--- NOTE | 2017-06-30 18:20 | PDDCSUM ---
Discharge Summary Discharge Summary: DISCHARGE SUMMARY FOLLOW-UP ITEMS: Follow-up visit with primary care provider DATE OF ADMISSION: 06/29/2017 DATE OF DISCHARGE: 06/30/2017 DISCHARGE DIAGNOSES: 1. Acute generalized weakness, multifactorial 2. Acute right-sided chest pain 3. Chronic hypoxic respiratory failure 4. COPD without exacerbation 5. Acute nausea vomiting and diarrhea 6. Chronic pain with continuous opiate dependency CONSULTATIONS: None PROCEDURES / IMAGING: Chest CT demonstrating no pulmonary embolism, stable appearing right lower lobe scarring, resolving right upper lobe pneumonia CHIEF COMPLAINT: Acute nausea vomiting diarrhea and chest pain SUBJECTIVE: Patient is feeling well at time discharge, he feels confident being discharged home with home care services PHYSICAL EXAM ON DISCHARGE: Systolic blood pressure is 113, heart rate 60, afebrile overnight, satting well on 2 L nasal cannula, alert awake oriented x3, lungs are clear on expiration, faint inspiratory crackles right mid posterior segment, no bronchial breath sounds, heart rhythm is regular, no lower extremity edema, alert awake oriented x3 LABS ON DISCHARGE: White blood count 5200 hemoglobin 11.6, potassium 3.6, creatinine 0.7, respiratory viral panel negative, liver panel unremarkable, procalcitonin level negative, ESR 9 HOSPITAL COURSE BY PROBLEM: The patient presented with acute nausea vomiting diarrhea and chest pain. The etiology of his chest pain is most likely mucus plugging in the setting of recent pneumonia, with chest pain substantially alleviated after the patient had coughed up some of the mucus. Chest imaging demonstrated that his pneumonia is resolving, and all of his lab work demonstrated no ongoing inflammatory or infectious process. I recommended ongoing mucolytics and cough suppressants if needed to reduce potentiating costochondritis from coughing. Regarding his GI symptoms, the etiology is unclear. The patient has a history of GI symptoms in the setting of his chronic opiate use, and this may have been contributing. The patient was also acutely anxious and distressed after the recent expiration of his CT, and after the patient was able to grieve, his symptoms seemed to valentin. The patient otherwise only received supportive care and did not require further advanced abdominal imaging. Of note, the patient does have chronic scarring in the right lower lobe and this was compared to chest imaging from 2012. Radiology compared these images and given that the patient had a negative PET scan in 2012 as well as wedge biopsy demonstrating scar tissue, no additional biopsy was indicated at this time. The patient was overall feeling well on the day of discharge and engage well with physical and occupational therapy. They recommended ongoing home physical therapy and I recommended close outpatient follow up with his primary care provider. DISCHARGE MEDICATIONS: Please see official discharge medication reconciliation sheet in chart , continue home medications with the addition Mucinex 1200 mg twice daily, Tessalon Perles as needed. DISCHARGE INSTRUCTIONS: Please follow up with primary care provider soon as possible.
--- NOTE | 2017-07-01 08:43 | ASDISCHSUM ---
Discharge Information Plan Status:Home with Home Health Medically Cleared to Leave: Discharge Date:06/30/2017 03:50 PM CM D/C Disposition: ADT D/C Disposition:Home Health Service Projected Discharge Date:06/30/2017 11:00 AM Transportation at D/C: Discharge Delay Reason: Follow-Up Date:06/30/2017 11:00 AM Discharge Slot: Final Diagnosis: Placement Information Referral Type:*Home Health Care Services Referral ID:[id number] Provider Name:[facility] Address 1:[address] Phone Number: Address 2: [address] Fax Number: [facility]:[place] Selection Factors: State:[place] Patient Contact Information Contact Name:ODALYS Relationship: Address:[address] City:[place] Alternate Phone: State/Zip Code:[place] [address] Email: Financial Information Financial Class:Medicaid Primary Plan 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/OT evals pending. DC needs, if any, not clear yet. CM will follow. Date Signed: 06/29/2017 10:21 AM Electronically Signed By:Shelley Villanueva RN Case Management Discharge Plan Note Case Management Discharge Discharge Order Complete? Answers: Yes Patient to Obtain Answers: Independently Medications Transportation Arranged Answers: Family/Friends Faxed Final Orders Answers: Yes Discharge Comments Notes: Patient discharged to home. [facility] will follow for PT. Orders sent. Date Signed: 06/30/2017 03:04 PM Electronically Signed By:Isabelle Mcnally RN Intervention Information
== END 2017-06-30 15:50 | disposition home health service (06) ==
LOC: EDUNIT# → F1N 06-29 02:52
PROVIDERS: ADMIT Family Medicine; ATTEND Internal Medicine
DX: R53.1 Weakness (principal); R19.7 Diarrhea, unspecified; R11.2 Nausea with vomiting, unspecified; R07.89 Other chest pain; R91.8 Other nonspecific abnormal finding of lung field; J96.11 Chronic respiratory failure with hypoxia; J44.9 Chronic obstructive pulmonary disease, unspecified; G89.29 Other chronic pain; F11.20 Opioid dependence, uncomplicated
CPT/HCPCS: 71045; 71275; 93005; 96360; 97116; 97161; 97165; 99285; G0378; J1650; J2405; Q9967

== ENCOUNTER → 2017-08-04 | Outpatient (CLI) | payer MEDICAID | LOC: FIMAGING 13:27 | PROVIDERS: ATTEND Physician Assistant | DX: Z98.1 Arthrodesis status (principal) ==

== ENCOUNTER 2017-08-05 09:32 | Day surgery (SDC) | payer MEDICAID ==
[2017-08-05] MEDS ORDERED: LIDOCAINE 1% 2 ML INJ ID PRN (09:48)
[2017-08-05] MEDS ORDERED: LR 1,000 ML IV ONE (09:48)
[2017-08-05 10:19] VITALS: PULSE 54
--- NOTE | 2017-08-05 12:07 | PDGENHP ---
History & Physical Chief Complaint: ross's, cc screen Pertinent Past, Social, Family History: hx barretts. cc screening Relevant Physical Exam: CTA. A+Ox3. S1S2, RRR. +Bs soft nt Cardiorespiratory Assessment: class 3
[2017-08-05] MEDS ORDERED: ALBUTEROL 3 ML DEYVIAL IH PRN (12:10)
[2017-08-05] MEDS ORDERED: NALOXONE HCL 0.4 MG/ML INJ IVP PRN (12:10)
[2017-08-05] MEDS ORDERED: ONDANSETRON 4 MG/2 ML VIAL IVP PRN (12:10)
--- NOTE | 2017-08-05 12:10 | PDANEPAE ---
ANE Past Medical History - Cardiovascular History Hx Hypertension: Yes Hx Arrhythmias: No Hx Chest Pain: No Hx Coronary Artery / Peripheral Vascular Disease: Yes Hx CHF / Valvular Disease: No Hx Palpitations: No Cardiovascular History Comment: STRONG FAMILY HX OF HEART DISEASE. 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 - Pulmonary History Hx COPD: Yes Hx Asthma/Reactive Airway Disease: Yes Hx Recent Upper Respiratory Infection: Yes Hx Oxygen in Use at Home: Yes Hx Sleep Apnea: Yes Sleep Apnea Screening Result - Last Documented: Positive Pulmonary History Comment: 2L/MIN CONTINUOUS O2, HX PE AND PULMONARY NODULES. severe asthma perfumes, strong fragrances as trigger - Neurologic History Hx Cerebrovascular Accident: No Hx Seizures: No Hx Dementia: No - Endocrine History Hx Diabetes: Yes Endocrine History Comment: oral control - Renal History Hx Renal Disorders: No - Liver History Hx Hepatic Disorders: No - Neurological & Psychiatric Hx Hx Neurological and Psychiatric Disorders: Yes Neurological / Psychiatric History Comment: peripheral neuropathy - Cancer History Hx Cancer: No - Congenital Disorder History Hx Congenital Disorders: No - GI History Hx Gastrointestinal Disorders: Yes Gastrointestinal History Comment: reflux,barrets esophagus - Other Health History Other Health History: missing tooth lower left - Chronic Pain History Chronic Pain: Yes (shoulders,lower back right knee) - Surgical History Prior Surgeries: R SHOULDER RECONSTRUCTION 08/2016. 2011 PE REMOVAL. L4/5/S1 10/2016 ANE Review of Systems Review of Systems: - Exercise capacity METS (RN): 5 METS ANE Patient History - Allergies Allergies/Adverse Reactions: ibuprofen Allergy (Severe, Verified 07/28/17 16:12) Anaphylaxis montelukast [From Singulair] Allergy (Severe, Verified 07/28/17 16:12) Anaphylaxis - Home Medications Home Medications: Atorvastatin Calcium [Lipitor 40 mg (*)] 01/20/17 [Last Taken 1 Day Ago ~] Fluticasone/Salmeterol [Advair Hfa 115-21 Mcg Inhaler] 01/20/17 [Last Taken 04/04 08:00] Ipratropium/Albuterol [Duoneb (*)] 01/20/17 [Last Taken 1 Day Ago ~08/04/17] Losartan Potassium [Cozaar 50 mg (*)] 01/20/17 [Last Taken 08/05/17] Pantoprazole Sodium [Protonix 40mg (*)] 09/05/17 [Last Taken 1 Day Ago ~] Pioglitazone HCl 01/20/17 [Last Taken 2 Days Ago ~08/03/17] Cholecalciferol Vit D3 [Vitamin D3 (*)] 06/08/17 [Last Taken 1 Week Ago ~] Cyanocobalamin [Vitamin B12 (*)] 06/08/17 [Last Taken 1 Week Ago ~07/29/17] Albuterol [Proventil Inhaler HFA (*)] 06/29/17 [Last Taken 1 Day Ago ~08/04/17] Allopurinol [Allopurinol 300 MG (RX)] 06/29/17 [Last Taken 1 Day Ago ~08/04/17] Aspirin [Aspirin 81mg (*)] 06/29/17 [Last Taken 1 Week Ago ~07/29/17] Multivitamins [Multivitamin (*)] 06/29/17 [Last Taken 1 Week Ago ~07/29/17] Acetaminophen [Tylenol 325mg (*)] 07/28/17 [Last Taken Unknown] Benzonatate [Tessalon Pearles] 07/28/17 [Last Taken Unknown] Tiotropium Inhaler [Spiriva Handihaler] 07/28/17 [Last Taken Unknown] guaiFENesin [Mucinex] 07/28/17 [Last Taken 3 Days Ago ~08/02/17] metFORMIN HCL [Glucophage 500 mg (*)] 07/28/17 [Last Taken 2 Days Ago ~08/03/17 ] oxyCODONE HCL [Oxycontin] 07/28/17 [Last Taken 1 Day Ago ~08/04/17] oxyCODONE IR [Oxycodone Ir (*)] 07/28/17 [Last Taken 08/05/17] - NPO status NPO Since - Liquids (Date): 08/05/17 NPO Since - Liquids (Time): 06:45 NPO Since - Solids (Date): 08/04/17 NPO Since - Solids (Time): 08:30 - Smoking Hx Smoking Status: Never smoked - Family Anes Hx Family Hx Anesthesia Complications: none ANE Labs/Vital Signs - Vital Signs Blood Pressure: 100/65 Heart Rate: 54 Respiratory Rate: 18 O2 Sat (%): 98 Height: 185.42 cm Weight: 99.79 kg ANE Physical Exam - Airway Neck exam: short neck Mallampati Score: Class 1 Mouth exam: normal dental/mouth exam - Pulmonary Pulmonary: no respiratory distress, no rales or rhonchi, clear to auscultation, reduced air movement - Cardiovascular Cardiovascular: regular rate and rhythym, no murmur, rub, or gallop - ASA Status ASA Status: III, E ANE Anesthesia Plan Anesthesia Plan: GA with mask
[2017-08-05] MEDS ORDERED: PROPOFOL/EMULSION 500 MG/50 ML BOTTLE IV ONE (12:14)
[2017-08-05] MEDS ORDERED: PROPOFOL 200 MG/20 ML VIAL ONE (12:36)
--- NOTE | 2017-08-05 12:54 | GIREPORT ---
[facility] Surgical Services - Endoscopy Department Patient Name: Manuel Bass Procedure Date: 08/05/2017 12:21 PM Patient Type: Outpatient Attending MD/ ER Physician: Guanako Raza Procedure: Upper GI endoscopy Indications: Follow-up of Diaz's esophagus Providers: Ac Villanueva MD Referring MD: Andrea Last MD, Mehul Montenegro MD Medicines: Total IV Anesthesia (TIVA) = IV general Complications: No immediate complications. Estimated blood loss: Minimal. Description of Procedure: After obtaining informed consent, the endoscope was passed under direct vision. Throughout the procedure, the patient's blood pressure, pulse, and oxygen saturations were monitored continuously. The Endoscope was intro duced through the mouth, and advanced to the third part of duodenum. The uppe r GI endoscopy was accomplished without difficulty. The patient tolerated th e procedure well. Findings: There were esophageal mucosal changes consistent with short-segment Diaz's esophagus present in the lower third of the esophagus. The ma ximum longitudinal extent of these mucosal changes was 1 cm in length. Mucosa was biopsied with a cold forceps for histology. One specimen bottle was sen t to pathology. Estimated blood loss was minimal. A hiatal hernia was present. Scattered mild inflammation characterized by erythema, friability and granularity was found in the gastric antrum. Biopsies were taken with a cold forceps for histology. Estimated blood loss was minimal. The examined duodenum was normal. The exam was otherwise without abnormality. Estimated Blood Loss: Estimated blood loss was minimal. Post Op Diagnosis: - Esophageal mucosal changes consistent with short-segment Diaz's esophagus. Biopsied. - Hiatal hernia. - Gastritis. Biopsied. - Normal examined duodenum. - The examination was otherwise normal. Recommendation: - Await pathology results. - My office will call with the pathology result with 5-7 days. If you h ave not heard from my office by 12-14, do not assume the pathology is pia l, please call [phone] to get the pathology results. - Follow an antireflux regimen. - Continue present medications. - Use a proton pump inhibitor PO daily. - Perform a colonoscopy today. - Return to GI clinic in 8 weeks. - Return to primary care physician as previously scheduled. - Thank you for allowing me to help in your patient's care. Do not hesi weiss to call with any questions. Attending Participation: I personally performed the entire procedure. Kay Shen M.D Ac Villanueva MD 08/05/2017 12:54:03 PM This report has been signed electronicallyMathew MD Kay Number of Addenda: 0 Note Initiated On: 08/05/2017 12:21 PM [email or web address]
--- NOTE | 2017-08-05 12:57 | GIREPORT ---
[facility] Surgical Services - Endoscopy Department Patient Name: Manuel Bass Procedure Date: 08/05/2017 12:29 PM Patient Type: Outpatient Attending MD/ ER Physician: Guanako Raza Procedure: Colonoscopy Indications: Screening for colorectal malignant neoplasm Providers: Ac Villanueva MD Referring MD: MD Mehul Walker MD Medicines: Total IV Anesthesia (TIVA) = IV general Complications: No immediate complications. Estimated blood loss: Minimal. Description of Procedure: After obtaining informed consent, the scope was passed under direct vis ion. Throughout the procedure, the patient's blood pressure, pulse, and oxyg en saturations were monitored continuously. The Colonoscope with irrigatio n channel was introduced through the anus and advanced to the terminal il eum, with identification of the appendiceal orifice and IC valve. The colono scopy was performed without difficulty. The patient tolerated the procedure w ell. The quality of the bowel preparation was good. Findings: The digital rectal exam was normal. The terminal ileum appeared normal. A 2 mm polyp was found in the transverse colon. The polyp was sessile. The polyp was removed with a cold biopsy forceps. Resection and retrieval w ere complete. Estimated blood loss was minimal. A few medium-mouthed diverticula were found in the sigmoid colon and descending colon. The exam was otherwise without abnormality. Estimated Blood Loss: Estimated blood loss was minimal. Post Op Diagnosis: - The examined portion of the ileum was normal. - One 2 mm polyp in the transverse colon, removed with a cold biopsy forceps. Resected and retrieved. - Diverticulosis in the sigmoid colon and in the descending colon. - The examination was otherwise normal. Recommendation: - Await pathology results. - My office will call with the pathology result with 5-7 days. If you h ave not heard from my office by 12-14, do not assume the pathology is pia l, please call [phone] to get the pathology results. - If the pathology report reveals adenomatous tissue, then repeat the colonoscopy for surveillance in 5 years. - If the pathology report reveals no adenomatous tissue, then repeat th e colonoscopy for screening purposes in 10 years. - High fiber diet indefinitely. - 30-35 grams of dietary fiber per day. Can use supplemental fiber. - A high fiber diet may decrease risk of complications from diverticulo sis. There is no need to avoid seeds or nuts. - Patient has a contact number available for emergencies. The signs and symptoms of potential delayed complications were discussed with the pat ient. Return to normal activities tomorrow. Written discharge instructions we re provided to the patient. - Continue present medications. - Discharge patient to home (ambulatory). - Return to primary care physician as previously scheduled. - Thank you for allowing me to help in your patient's care. Do not hesi weiss to call with any questions. Attending Participation: I personally performed the entire procedure. Kay Shen M.D Ac Villanueva MD 08/05/2017 12:57:01 PM This report has been signed electronicallyMathew MD Kay Number of Addenda: 0 Note Initiated On: 08/05/2017 12:29 PM Total Procedure Duration Time 0 hours 13 minutes 7 seconds [email or web address]
--- NOTE | 2017-08-05 12:59 | POSTANESTH ---
Post Anesthetic Evaluation Cardiovascular Status: Normal, Stable, Similar to Pre-Op Cond Respiratory Status: Normal, Stable, Similar to Pre-op Cond. Level of Consciousness/Mental Status: Can Participate in Eval Pain Control: Adequate, Prn Tx Ordered Nausea/Vomiting Control: Adequate, Prn Tx Ordered Complications Possibly Related to Anesthesia: None Noted
[2017-08-05] MEDS ORDERED: LIDOCAINE 2% 5 ML SDV ONE (13:04)
[2017-08-05 13:14] VITALS: O2SAT 97
[2017-08-05 13:22] VITALS: RESP 12; TEMP 97.3
[2017-08-05 13:51] VITALS: BP 121/74
== END 2017-08-05 14:05 | disposition home or self-care (01) ==
LOC: FSGY 09:32
PROVIDERS: ATTEND Internal Medicine Gastroenterology
DX: Z12.11 Encounter for screening for malignant neoplasm of colon (principal); K22.70 Barrett's esophagus without dysplasia; K29.70 Gastritis, unspecified, without bleeding; K57.30 Diverticulosis of large intestine without perforation or abscess without bleeding; K44.9 Diaphragmatic hernia without obstruction or gangrene; I10 Essential (primary) hypertension; J44.9 Chronic obstructive pulmonary disease, unspecified; G47.30 Sleep apnea, unspecified; E11.42 Type 2 diabetes mellitus with diabetic polyneuropathy; G62.9 Polyneuropathy, unspecified; Z79.84 Long term (current) use of oral hypoglycemic drugs; Z79.01 Long term (current) use of anticoagulants; Z86.711 Personal history of pulmonary embolism; Z82.49 Family history of ischemic heart disease and other diseases of the circulatory system; Z99.81 Dependence on supplemental oxygen
CPT/HCPCS: J2704

== ENCOUNTER 2017-10-11 20:40 | Emergency (ER) | payer OTHER, MEDICAID ==
[2017-10-11 21:26] LABS: PLATELET COUNT 249 10^3/uL (150-400)
[2017-10-11] MEDS ORDERED: methylPREDNISolone SOD SUCC 125 MG/2 ML VIAL IVP ONE (21:57)
[2017-10-11] MEDS ORDERED: IPRATROPIUM/ALBUTEROL 3 ML DEYVIAL IH ONE (21:57)
[2017-10-11 22:00] LABS: INR 0.96 (0.83-1.16)
--- NOTE | 2017-10-11 22:02 | EDPHY ---
H & P Time Seen by Provider: 10/11/17 21:47 HPI/ROS: HPI Shortness of breath. 57-year-old male by private vehicle. He reports that he has been treated by his primary care physician for walking pneumonia with Levaquin. He started this 5 days ago. He reports taking 750 mg daily. He is on a 10 day course. He reports his had a similar bronchitis/walking pneumonia type illness some was prescribed same medication. He reports he has had this cough with associated shortness of breath ongoing for 2-3 weeks now. He is on oxygen at home 2 L by nasal cannula. Significant past medical history includes pulmonary embolism. He is no longer on anticoagulation for this and he also has a history of COPD. He reports worsening shortness of breath today. He describes having a cough productive of green sputum intermittently. No chest pain. ROS: Constitutional: No fever, no chills. No weakness. Eyes: No discharge. No changes in vision. ENT: No sore throat. No nasal congestion or rhinorrhea. Respiratory: As above. Cardiac: No chest pain, no palpitations. Gastrointestinal: No abdominal pain, no vomiting, no diarrhea. Genitourinary: No hematuria. No dysuria or increased frequency with urination. Musculoskeletal: No back pain. No neck pain. No myalgias or arthralgias. Skin: No rashes. Neurological: No headache. No focal weakness or altered sensation. Past medical history: Chronic pain, pulmonary embolism, asthma/COPD, type 2 diabetes, lung surgery, kidney stones, hypertension, chronic orthopedic injuries. As above. Social history: Former smoker. Currently here by himself. . Denies alcohol. Physical Exam: General Appearance: Alert, no distress. This patient is responding to questions appropriately and in full sentences. This patient appears well- hydrated and well-nourished. Eyes: Pupils equal and round no pallor or injection. No lid edema, erythema or injection. Respiratory: There are no retractions, lungs are clear to auscultation with good air movement bilaterally. No tachypnea. Cardiovascular: Regular rate and rhythm. No murmur appreciated. Gastrointestinal: Abdomen is soft and nontender, no masses, bowel sounds normal. No focal tenderness at McBurney's point. No Sanchez sign. Neurological: Motor sensory function is grossly intact. Cranial nerves are normal. Gait is normal. Skin: Warm and dry, no rashes. Musculoskeletal: Neck is supple and nontender. Extremities are symmetrical. All joints range without pain or impingement. Psychiatric: No agitation. No depression. Database: EKG: EKG time is 10:08 p.m.; EKG shows a narrow complex normal sinus rhythm with a ventricular rate of 70. The GA, QRS, QT intervals are within normal limits. There are no ST-T wave changes indicative of ischemic or injury pattern. No evidence of right heart strain. Interpreted by me. Imaging: Chest x-ray PA and lateral; the cardiac mediastinal silhouette is unremarkable. No evidence of infiltrate or pneumothorax. No acute cardiopulmonary disease process noted. Interpreted by me. Procedures: Emergency department course: IV placed. Vital signs reviewed and are normal. Pulse oximetry on 2 L nasal cannula is 96-98%. The patient feels he would benefit from a dose of steroids as well as nebulized albuterol. He will be given albuterol/Atrovent as a nebulizer and 125 mg of IV Solu-Medrol. EKG obtained and reviewed by myself. 10:35 p.m., patient re-evaluated. Feeling much better at this time. Vital signs reviewed and are normal. He feels comfortable going home. I have instructed him to continue his Levaquin as prescribed. He will follow up with his primary care physician on Thursday. I will prescribe a short course of steroids as well. Return to emergency department precautions reviewed with him. All of his questions were answered. He was discharged from the emergency department in good condition. Differential Diagnosis: The differential diagnosis on this patient includes but is not limited to asthma /COPD exacerbation. Congestive heart failure, pneumonia, acute coronary syndrome, pulmonary embolism unlikely. This represents a partial list of diagnoses considered. These considerations are based on history, physical exam , past history, reassessment and diagnostic testing. Smoking Status: Never smoked Constitutional: Initial Vital Signs Temperature (C) 36.7 C 10/11/17 20:47 Heart Rate 74 10/11/17 20:47 Respiratory Rate 16 10/11/17 20:47 Blood Pressure 123/76 H 10/11/17 20:47 O2 Sat (%) 96 10/11/17 20:47 O2 Delivery Mode Room Air O2 (L/minute) 2 Allergies/Adverse Reactions: ibuprofen Allergy (Severe, Verified 10/11/17 20:47) [facility] Allergy (Severe, Verified 10/11/17 20:47) Anaphylaxis Home Medications: Medication Instructions Recorded Atorvastatin Calcium [Lipitor 40 01/20/17 mg (*)] Fluticasone/Salmeterol [Advair Hfa 01/20/17 115-21 Mcg Inhaler] Ipratropium/Albuterol [Duoneb (*)] 01/20/17 Losartan Potassium [Cozaar 50 mg 01/20/17 (*)] Pantoprazole Sodium [Protonix 40mg 01/20/17 (*)] Pioglitazone HCl 01/20/17 Cholecalciferol Vit D3 [Vitamin D3 06/08/17 (*)] Cyanocobalamin [Vitamin B12 (*)] 06/08/17 Albuterol [Proventil Inhaler HFA 06/29/17 (*)] Allopurinol [Allopurinol 300 MG 06/29/17 (RX)] Aspirin [Aspirin 81mg (*)] 06/29/17 Multivitamins [Multivitamin (*)] 06/29/17 Acetaminophen [Tylenol 325mg (*)] 07/28/17 Benzonatate [Tessalon Pearles] 07/28/17 Tiotropium Inhaler [Spiriva 07/28/17 Handihaler] guaiFENesin [Mucinex] 07/28/17 metFORMIN HCL [Glucophage 500 mg 07/28/17 (*)] oxyCODONE HCL [Oxycontin] 07/28/17 oxyCODONE IR [Oxycodone Ir (*)] 07/28/17 Levaquin 10/11/17 Pioglitazone HCl 10/11/17 predniSONE [prednisone 20mg (RX)] 60 mg PO DAILY #9 tab 10/11/17 Medical Decision Making - Diagnostics Imaging Results: Imaging Impressions Chest X-Ray 10/11/17 20:54 Impression: Clear lungs. No acute process. - Data Points Laboratory Results: Laboratory Results 10/11/17 21:10 10/11/17 21:10 10/11/17 10/11/17 10/11/17 21:10 21:10 21:00 WBC 9.82 10^3/uL H 10^3/uL (3.80-9.50) RBC 4.80 10^6/uL 10^6/uL (4.40-6.38) Hgb 14.6 g/dL g/dL (13.7-17.5) Hct 43.1 % % (40.0-51.0) MCV 89.8 fL fL (81.5-99.8) MCH 30.4 pg pg (27.9-34.1) MCHC 33.9 g/dL g/dL (32.4-36.7) RDW 14.9 % % (11.5-15.2) Plt Count 249 10^3/uL 10^3/uL (150-400) MPV 10.2 fL fL (8.7-11.7) Neut % (Auto) 68.3 % % (39.3-74.2) Lymph % (Auto) 20.1 % % (15.0-45.0) Gregory % (Auto) 8.6 % % (4.5-13.0) Eos % (Auto) 1.9 % % (0.6-7.6) Baso % (Auto) 0.3 % % (0.3-1.7) Nucleat RBC Rel Count 0.0 % % (0.0-0.2) Absolute Neuts (auto) 6.71 10^3/uL H 10^3/uL (1.70-6.50) Absolute Lymphs (auto) 1.97 10^3/uL 10^3/uL (1.00-3.00) Absolute Monos (auto) 0.84 10^3/uL H 10^3/uL (0.30-0.80) Absolute Eos (auto) 0.19 10^3/uL 10^3/uL (0.03-0.40) Absolute Basos (auto) 0.03 10^3/uL 10^3/uL (0.02-0.10) Absolute Nucleated RBC 0.00 10^3/uL 10^3/uL (0-0.01) Immature Gran % 0.8 % % (0.0-1.1) Immature Gran # 0.08 10^3/uL 10^3/uL (0.00-0.10) PT INR APTT D-Dimer Sodium 142 mEq/L mEq/L (135-145) Potassium 5.1 mEq/L H mEq/L (3.3-5.0) Chloride 104 mEq/L mEq/L (97-110) Carbon Dioxide 23 mEq/l mEq/l (22-31) Anion Gap 15 mEq/L mEq/L (8-16) BUN 20 mg/dL mg/dL (7-23) Creatinine 0.9 mg/dL mg/dL (0.7-1.3) Estimated GFR > 60 Glucose 76 mg/dL mg/dL (70-100) Calcium 9.7 mg/dL mg/dL (8.5-10.4) Troponin I < 0.012 ng/mL ng/mL (0.000-0.034) NT-Pro-B Natriuret Pep 196 pg/mL H pg/mL (0-125) Specimen Hemolysis 110 10/11/17 21:00 WBC RBC Hgb Hct MCV MCH MCHC RDW Plt Count MPV Neut % (Auto) Lymph % (Auto) Gregory % (Auto) Eos % (Auto) Baso % (Auto) Nucleat RBC Rel Count Absolute Neuts (auto) Absolute Lymphs (auto) Absolute Monos (auto) Absolute Eos (auto) Absolute Basos (auto) Absolute Nucleated RBC Immature Gran % Immature Gran # PT 13.0 SEC SEC (12.0-15.0) INR 0.96 (0.83-1.16) APTT 25.5 SEC SEC (23.0-38.0) D-Dimer < 0.27 ug/mLFEU ug/mLFEU (0.00-0.50) Sodium Potassium Chloride Carbon Dioxide Anion Gap BUN Creatinine Estimated GFR Glucose Calcium Troponin I NT-Pro-B Natriuret Pep Specimen Hemolysis Medications Given: Discontinued Medications Albuterol/Ipratropium (Duoneb) 6 ml IH EDNOW ONE Stop: 10/11/17 21:58 Last Admin: 10/11/17 22:05 Dose: 6 ml Methylprednisolone Sodium Succinate (Solu-Medrol) 125 mg IVP EDNOW ONE Stop: 10/11/17 21:58 Last Admin: 10/11/17 22:05 Dose: 125 mg Departure - Departure Disposition: Home, Routine, Self-Care Clinical Impression: Bronchitis, COPD exacerbation Condition: Good Instructions: Acute Bronchitis (ED), COPD (Chronic Obstructive Pulmonary Disease) (ED) Additional Instructions: Read and follow provided instructions. Follow-up with your primary care physician on Thursday or Thursday of this week. Take your medications as prescribed. Return to the emergency department for worsening symptoms, high fever, shortness of breath, chest pain or other serious concerns. Referrals: Patient,NotPresent [Unknown] - As per Instructions Prescriptions: predniSONE [prednisone 20mg (RX)] 60 mg PO DAILY #9 tab
--- NOTE | 2017-10-11 22:09 | CPEKG ---
Heart Rate: 70 RR Interval: 857 P-R Interval: 164 QRSD Interval: 102 QT Interval: 429 QTC Interval: 463 P [place]: 28 QRS [place]: 64 T Wave [place]: 0 EKG Severity - BORDERLINE ECG - EKG Impression: SINUS RHYTHM EKG Impression: BORDERLINE T ABNORMALITIES, DIFFUSE LEADS Electronically Signed By: Nanda Quiñonez 11-Oct-2017 23:14:02
[2017-10-11 22:49] VITALS: BP 131/74
== END 2017-10-11 22:49 | disposition home or self-care (01) ==
LOC: EDUNIT#
DX: J44.1 Chronic obstructive pulmonary disease with (acute) exacerbation (principal); J40 Bronchitis, not specified as acute or chronic; E11.9 Type 2 diabetes mellitus without complications; I10 Essential (primary) hypertension; Z79.82 Long term (current) use of aspirin; Z87.891 Personal history of nicotine dependence
CPT/HCPCS: 71046; 93005; 96374; 99285; J2930

== ENCOUNTER 2017-10-28 22:46 | Emergency (ER) | payer OTHER, MEDICAID ==
--- NOTE | 2017-10-28 23:36 | EDPHY ---
H & P Stated Complaint: R LEG EDEMA, AND R LEG PAIN Time Seen by Provider: 10/28/17 23:33 HPI/ROS: HPI: This is a 57-year-old male who presents with Chief Complaint: R LEG EDEMA, AND R LEG PAIN Location: Right ankle and calf Quality: Swelling Duration: Several days Signs and Symptoms: No bleeding, no radiation, no numbness, no weakness, no tingling, no incontinence, no decreased range of motion, + swelling, + pain, no fever Timing: Worsening Severity: Moderate Context: Patient has a history of chronic pain, pulmonary embolism diagnosed approximately 5 4-6 years ago and was on Coumadin for 6 months presents with complaints of several day history of gradually worsening right ankle and calf pain and associated pitting edema at the right medial malleolus. Patient is on chronic oxygen therapy. Due to chronic lower back pain he has decreased mobility. No longer takes blood thinners. Denies any shortness of breath, chest pain, dizziness, skin color changes. No history of trauma, injury. Modifying Factors: None Comment: ROS: see HPI Constitutional: No fever, no chills, no weight loss Eyes: No blurred vision Respiratory: No shortness of breath, no cough Cardiovascular: No chest pain Gastrointestinal: No nausea, no vomiting no diarrhea Genitourinary: No dysuria Extremities: No myalgias Neurologic: No weakness, no numbness Skin: No rashes Hematologic: No bruising, no bleeding MEDICAL/SURGICAL/SOCIAL HISTORY: Medical/surgical history: Chronic pain, PE x5, asthma/COPD, DM II, Lung surgery -biopsies, kidney stones, hossein shoulder tears, r knee injuries, lower back pain, back fractures, R total shoulder replacement, HTN Social history: Disabled. CONSTITUTIONAL: Adult white male, awake and alert, no obvious distress HEENT: Atraumatic and normocephalic. NECK: supple, no midline tenderness, flexion 45 degrees, extension 45 degrees, right and left lateral flexion 45 degrees. No meningismus. Cardiovascular: Normal S1/S2, regular rate, regular rhythm, without murmur rub or gallop. PULMONARY/CHEST: Symmetrical and nontender. no crepitus. Clear to auscultation bilaterally. Good air movement. No accessory muscle usage. ABDOMEN: Soft, nondistended, nontender, no ecchymosis. PELVIC: no pain with rocking; bilateral hips flexion 125 degrees, extension 30 degrees, with no pain internal rotation and no pain external rotation. BACK: No midline tenderness, no paraspinous spasm, deep tendon reflexes 2/2, no pain with straight leg raise, No foot drop. Achilles reflexes are equal bilaterally. Able to walk on heels and toes without difficulty. EXTREMITIES: 2/2 pulses, strength 5/5, right calf tenderness no varicose veins. No palpable cords. 1+ pitting edema noted to the superior portion of the medial malleolus. Right Ankle: Plantar flexion to 50, dorsiflexion to 20 . Foot inversion to 35 degree. No tenderness/swelling Anterior talofibular ligament. No tenderness/swelling Calcaneofibular ligament, no tenderness/ swelling posterior talofibular ligament, no tenderness/swelling posterior inferior tibiofibular ligament. Achilles tendon intact. DIP/PIP/MCP flexion/ extension intact with good light touch sensation. no deformities, no clubbing, no cyanosis or edema. NEUROLOGICAL: no focal neuro deficits. GCS 15. Light touch sensation intact. SKIN: Warm and dry, no erythema. no rash. Good capillary refill. Source: Patient Exam Limitations: No limitations - Personal History Current Tetanus Diphtheria and Acellular Pertussis (TDAP): Yes Tetanus Vaccine Date: ~2011 - Medical/Surgical History Hx Asthma: Yes Hx Chronic Respiratory Disease: Yes Hx Diabetes: Yes Hx Cardiac Disease: Yes Hx Renal Disease: No Hx Cirrhosis: No Hx Alcoholism: No Hx HIV/AIDS: No Hx Splenectomy or Spleen Trauma: No Other PMH: Chronic pain, PE x5, asthma/COPD, DM II, Lung surgery-biopsies, kidneystones, hossein shoulder tears, r knee injuries, lower back pain, backfractures, R total shoulder replacement, HTN - Social History Smoking Status: Never smoked Constitutional: Initial Vital Signs Temperature (C) 36.8 C 10/28/17 23:15 Heart Rate 77 10/28/17 23:15 Respiratory Rate 18 10/28/17 23:15 Blood Pressure 140/77 H 10/28/17 23:15 O2 Sat (%) 94 10/28/17 23:15 O2 Delivery Mode Nasal Cannula O2 (L/minute) 2 Allergies/Adverse Reactions: ibuprofen Allergy (Severe, Verified 10/11/17 20:47) Anaphylaxis montelukast [From Singulair] Allergy (Severe, Verified 10/11/17 20:47) Anaphylaxis Home Medications: Medication Instructions Recorded Atorvastatin Calcium [Lipitor 40 01/20/17 mg (*)] Fluticasone/Salmeterol [Advair Hfa 01/20/17 115-21 Mcg Inhaler] Ipratropium/Albuterol [Duoneb (*)] 01/20/17 Losartan Potassium [Cozaar 50 mg 01/20/17 (*)] Pantoprazole Sodium [Protonix 40mg 01/20/17 (*)] Pioglitazone HCl 01/20/17 Cholecalciferol Vit D3 [Vitamin D3 06/08/17 (*)] Cyanocobalamin [Vitamin B12 (*)] 06/08/17 Albuterol [Proventil Inhaler HFA 06/29/17 (*)] Allopurinol [Allopurinol 300 MG 06/29/17 (RX)] Aspirin [Aspirin 81mg (*)] 06/29/17 Multivitamins [Multivitamin (*)] 06/29/17 Acetaminophen [Tylenol 325mg (*)] 07/28/17 Benzonatate [Tessalon Pearles] 07/28/17 Tiotropium Inhaler [Spiriva 07/28/17 Handihaler] guaiFENesin [Mucinex] 07/28/17 metFORMIN HCL [Glucophage 500 mg 07/28/17 (*)] oxyCODONE HCL [Oxycontin] 07/28/17 oxyCODONE IR [Oxycodone Ir (*)] 07/28/17 Levaquin 10/11/17 Pioglitazone HCl 10/11/17 predniSONE [prednisone 20mg (RX)] 60 mg PO DAILY #9 tab 10/11/17 Medical Decision Making - Diagnostics Imaging Results: Imaging Impressions Extremity Venous Study 10/28/17 23:36 Impression: No deep venous thrombosis right leg. ED Course/Re-evaluation: Right lower extremity ultrasound ordered No signs of neurovascular compromise/tenting of skin/compartment syndrome/ extremities and joints examined above and below area of concern and are neurovascularly intact/cellulitis/septic arthritis/gouty arthropathy. Offered right ankle x-ray to patient and he politely declined as he states that there has been no trauma or injury and he believes that he has a blood clot. Labs reviewed and creatinine on 10/11/2017 was 0.9. Called by radiologist that ultrasound does not show DVT. This patient was seen under the supervision of my secondary supervising physician. I evaluated care for this patient independently. Discussed this patient with Dr. Pisano who did not see the patient. Differential Diagnosis: Leg swelling including but not limited to hypoalbuminemia, congestive heart failure, cor pulmonale, chronic venous stasis and DVT. Departure - Departure Disposition: Home, Routine, Self-Care Clinical Impression: Right ankle swelling Condition: Good Instructions: Leg Edema (ED) Additional Instructions: If symptoms do not improve over the next 5-7 days please follow-up with primary care provider for further evaluation and testing. Referrals: CHANDRA CONTEH [Other] - 5-7 days, if not improved
[2017-10-29 00:27] VITALS: BP 125/66
== END 2017-10-29 00:26 | disposition home or self-care (01) ==
DX: M25.471 Effusion, right ankle (principal); J45.909 Unspecified asthma, uncomplicated; E11.9 Type 2 diabetes mellitus without complications; J44.9 Chronic obstructive pulmonary disease, unspecified; I10 Essential (primary) hypertension; Z79.82 Long term (current) use of aspirin

== ENCOUNTER → 2018-03-31 | Outpatient (CLI) | payer OTHER, MEDICAID | LOC: FIMAGING 15:17 | PROVIDERS: ATTEND Physician Assistant | DX: Z98.1 Arthrodesis status (principal) ==